=== PATIENT | female | born 1985 | race Caucasian/White ===

== ENCOUNTER 2020-04-20 15:08 | Outpatient (CLI) | payer OTHER, SELFPAY ==
--- NOTE | ~2020-04-20 | XR_ITS ---
EXAMINATION: XR hand RT 2V DATE: 04/20/2020 16:06 INDICATION: Arthralgia. TECHNIQUE: 2 views of right hand were obtained. COMPARISON: None. FINDINGS: Bone alignment is normal. No fracture. Joint spaces are well maintained. IMPRESSION: 1. Normal right hand. Reviewed, dictated and finalized at location A. IMPRESSION: 1. Normal right hand.
--- NOTE | ~2020-04-20 | XR_ITS ---
EXAMINATION: XR hand LT 2V DATE: 04/20/2020 16:07 INDICATION: Arthralgia. TECHNIQUE: 2 views of left hand were obtained. COMPARISON: None. FINDINGS: Bone alignment is normal. No fracture. Joint spaces are well maintained. IMPRESSION: 1. Normal left hand. Reviewed, dictated and finalized at location A. IMPRESSION: 1. Normal left hand.
--- NOTE | ~2020-04-20 | XR_ITS ---
EXAMINATION: XR chest 2V 04/20/2020 16:06 INDICATION: Dyspnea with exertion PROCEDURE: 2 view chest COMPARISON: No prior studies for comparison. FINDINGS: The lungs are clear. The cardiomediastinal silhouette is within normal limits. There are no pleural effusions. There is no pneumothorax suspected. IMPRESSION: 1: NO ACUTE CARDIOPULMONARY DISEASE. Reviewed, dictated and finalized at location B.
--- NOTE | ~2020-04-20 | XR_ITS ---
XR foot RT 2V, XR foot LT 2V 04/20/2020 16:07 Indication: Arthralgias. Procedure: 2 views each foot Comparison: No prior studies for comparison. Findings: No fracture, subluxation or dislocation. No significant joint space narrowing. No erosive c hanges. No focal soft tissue abnormality. There is a small degenerative calcaneal enthesophyte of the left calcaneus at the plantar surface. Impression: 1: No significant bone or joint abnormality. Reviewed, dictated and finalized at location B. Impression: 1: No significant bone or joint abnormality. Impression: 1: No significant bone or joint abnormality.
== END 2020-04-20 15:09 | disposition home or self-care (01) ==
PROVIDERS: Referring Provider Internal Medicine Rheumatology; Visit Provider Physician Assistant
DX: M25.50 Pain in unspecified joint (principal)
CPT/HCPCS: 71046; 73120; 73620

== ENCOUNTER 2020-04-29 14:45 | Outpatient (CLI) | payer OTHER, SELFPAY ==
--- NOTE | 2020-04-29 | ECHO_ITS ---
Patient Info Name: Sarah Cowan Age: 34 years : 1985 Gender: Female Ht: 66 in Wt: 275 lbs BSA: 2.48 m2 HR: 101 bpm BP: 116 / 76 mmHg Heart Rhythm: Sinus Rhythm Technical Quality: Good Exam Date: 04/29/2020 3:36 PM Exam Location: [facility] Patient Status: Outpatient Admit Date: 04/29/2020 Staff Ordering Physician: Lucia, Jose Dowd MD Liner Roll Changer: Saida Qiu RDCS Attending Provider: Lucia, Jose Dowd MD Referring Physician: Ghulam US; Exam Type: CA echo doppler color flow Study Info Indications - LAST Complete two-dimensional, color flow and Doppler transthoracic echocardiogram is performed. Summary 1. Unremarkable 2D/Doppler echocardiogram. Left Ventricle Left ventricular chamber dimension is normal. Left ventricular systolic function is normal, estimated at 60-65%. The left ventricular diastolic function is normal. Right Ventricle Right ventricular chamber dimension is normal. Left Atria Left atrial chamber dimension is normal. Right Atria Right atrial chamber dimension is normal. Aortic Valve The aortic valve is normal. Pulmonic Valve The pulmonic valve is normal. Mitral Valve The mitral valve has normal leaflets. Tricuspid Valve The tricuspid valve leaflets are normal. Pericardium/Pleural The pericardium appears normal. Aorta The aortic root size at the sinus of Valsalva is normal. Left Ventricular Outflow Tract Name Value Normal LVOT 2D LVOT Diameter 2.0 cm LVOT Doppler LVOT Peak Gradient 7 mmHg LVOT Mean Gradient 4 mmHg LVOT VTI 20 cm LVOT VTI/AV VTI Ratio 0.8 LVOT Stroke Volume 62 ml LVOT CO 16.3 l/min LVOT CI 6.6 l/min/m2 Pulmonic Valve Name Value Normal PV Doppler PV Peak Gradient 4 mmHg Mitral Valve Name Value Normal MV Doppler MV Decel [place] 588 cm/s2 MV PHT 40 ms MV Area (PHT) 5.5 cm2 4.0-5.0 MV Diastolic Function MV E Peak Velocity 81 cm/s MV A Peak Velocity 72 cm/s MV E/A 1.1 MV Decel Time 138 ms Tricuspid Valve Name
== END 2020-04-29 14:46 | disposition home or self-care (01) ==
PROVIDERS: Visit Provider Internal Medicine Rheumatology
DX: R06.00 Dyspnea, unspecified (principal)
CPT/HCPCS: 93306

== ENCOUNTER 2020-05-26 07:43 | Outpatient (CLI) | payer OTHER, SELFPAY ==
--- NOTE | 2020-05-29 14:55 | WPDPFTINT ---
PFT Interpretation PFT Interpretation: This PFT met all criteria for ATS standards and reproducibility FEV/FVC pre bronchodilator 71% of predicted FEV1 73% or 2.21 liters FVC 80% or 3.10 liters No bronchodilator challenge was given TLC 105% or 5.77 liters RV 106% RV/TLC 33% DLCO 81% when adjusted for alveolar volume but not adjusted for hemoglobin Flow volume loops showed significant end expiratory coving Impression: Moderate obstruction. Unclear if responsive to brochodilators as bronchodilator challenge not ordered. Clinical correlation is advised.
== END 2020-05-26 07:44 | disposition home or self-care (01) ==
PROVIDERS: Visit Provider Internal Medicine Rheumatology
DX: R06.00 Dyspnea, unspecified (principal); R94.2 Abnormal results of pulmonary function studies
CPT/HCPCS: 94375; 94726; 94729

== ENCOUNTER 2021-03-24 12:57 | Emergency (ER) | payer OTHER, SELFPAY ==
[2021-03-24 13:07] VITALS: BP 146/96; PULSE 88; RESP 18; TEMP 36.8; O2SAT 99
--- NOTE | 2021-03-24 13:36 | ED.WOUNDLAC ---
HPI - Wound/Laceration General Chief Complaint: Wound/Laceration Stated Complaint: Infected tattoo Time Seen by Provider: 03/24/21 13:36 Source: patient and RN notes reviewed Mode of arrival: ambulatory Limitations: no limitations History of Present Illness HPI narrative: 35-year-old female history of rheumatoid arthritis presents with concern for open wounds on her new tattoo. Reports she got a tattoo 2 weeks ago and several days ago noticed several small open wounds with drainage. She reports they are slightly tender and itchy. She reports she has been using Neosporin on the areas. She denies any red streaking, malaise, fever, body aches. Extremity Location: Right: arm Related Data Home Medications Medication Instructions Recorded Confirmed hydroxychloroquine [Plaquenil] 03/24/21 leflunomide mg 03/24/21 venlafaxine mg PO 03/24/21 Allergies Allergy/AdvReac Type Severity Reaction Status Date / Time No Known Allergies Allergy Verified 03/24/21 13:13 Review of Systems Review of Systems: Narrative: CONSTITUTIONAL: Denies malaise, chills, sweats, or fever. CARDIOVASCULAR: Denies chest pain, palpitations, or edema. RESPIRATORY: Denies cough or dyspnea. SKIN: Reports wounds on her new tattoo MUSCULOSKELETAL: Denies myalgia. All systems reviewed & are unremarkable except as noted in HPI and below PMFSH Comments At time of signature, agree with nursing past medical, surgical, social and family history. There is no relevant family history pertinent to the presenting complaint Exam Narrative: Exam Narrative: GENERAL: Well-appearing, well-nourished, and in no acute distress. HEAD: Normocephalic, atraumatic. EYES: PERRLA, conjunctivae clear, and EOMI. ENT: Mucous membranes moist. Oropharynx without edema, erythema or lesions. NECK: Supple. No lymphadenopathy CHEST: Clear to auscultation. No respiratory distress. HEART: Regular rate and rhythm. SKIN: Warm, dry. 7 scattered wounds noted to the left lower arm on a tattoo, in various stages of healing some scab, some open all surrounded by small amount of erythema and induration. No streaking noted, no drainage noted. NEURO: Alert and oriented x3. PSYCH: Normal mood and affect Course Course Emergency Course: Patient is aware of diagnosis, understands and agrees to treatment plan. Anticipatory guidance given. Patient agrees to follow-up as directed and is aware of reasons to seek care at the emergency department. Portions of this record may have been created with voice recognition software Vital Signs Vital signs: Vital Signs Temperature 98.2 F 03/24/21 13:07 Pulse Rate 88 03/24/21 13:07 Respiratory Rate 18 03/24/21 13:07 Blood Pressure 146/96 H 03/24/21 13:07 Pulse Oximetry 99 03/24/21 13:07 Temperature 98.2 F 03/24/21 13:07 Pulse Rate 88 03/24/21 13:07 Respiratory Rate 18 03/24/21 13:07 Blood Pressure 146/96 H 03/24/21 13:07 Pulse Oximetry 99 03/24/21 13:07 Reviewed. MDM - Wound/Laceration MDM Narrative Medical decision making narrative: Exam findings show no acute concerns or changes; patient is non-toxic appearing and is in no distress. Patient is appropriate for outpatient treatment and follow-up. Differential Diagnosis Differential diagnosis: Likely abscess and other (Cellulitis, wound infection) Critical Care Time Critical Care Time Critical Care Time: No Discharge Plan Discharge Clinical Impression: Skin infection Patient Disposition: Home, Self-Care Condition: Stable Instructions: Antibiotic Form, Cellulitis (ED) Additional Instructions: Please follow up with your Primary Care Doctor If symptoms worsen or don't improve. Keep wound clean and dry, wash twice daily with soap and water. Alternate Tylenol and ibuprofen as needed for pain. Please take Antibiotics as directed. If you experience any worsening redness, swelling, streaking (red lines), fever or chills please go to the ER. Your blood p
== END 2021-03-24 13:55 | disposition home or self-care (01) ==
PROVIDERS: Emergency Provider Nurse Practitioner
DX: L08.9 Local infection of the skin and subcutaneous tissue, unspecified (principal); M06.9 Rheumatoid arthritis, unspecified; F90.9 Attention-deficit hyperactivity disorder, unspecified type
CPT/HCPCS: 99213; G0463

== ENCOUNTER 2021-03-31 01:39 | Emergency (ER) | payer OTHER, SELFPAY ==
[2021-03-31 01:55] VITALS: BP 139/90; PULSE 110; RESP 20; TEMP 35.9; O2SAT 98
--- NOTE | 2021-03-31 02:27 | ED.SKABFB ---
HPI - Skin/Abscess/Foreign Bdy General Chief complaint: Skin/Abscess/Foreign Body Stated complaint: Redness/ rash to leg Time Seen by Provider: 03/31/21 02:24 History of Present Illness HPI narrative: Painful swollen area to left inner thigh. Started as an ingrown hair quite sometime ago. Repeatedly drains and then comes back. No fever, or other systemic symptoms. Related Data Home Medications Medication Instructions Recorded Confirmed dextroamphetamine-amphetamine 5 mg PO BID 03/24/21 03/24/21 [Adderall] hydroxychloroquine [Plaquenil] 03/24/21 leflunomide 20 mg PO DAILY 03/24/21 naltrexone IM MONTHLY 03/24/21 trazodone 03/24/21 venlafaxine mg PO 03/24/21 venlafaxine mg PO 04/04/21 Allergies Allergy/AdvReac Type Severity Reaction Status Date / Time amoxicillin Allergy Intermediate Hives Verified 03/31/21 02:02 Review of Systems Constitutional: Constitutional: Reports no additional constitutional complaints Cardiovascular: Cardiovascular: Denies chest pain Respiratory: Respiratory: Denies dyspnea Gastrointestinal: Gastrointestinal: Denies nausea Neurologic: Denies dizziness and Denies weakness [facility] Social History Social History Substance use: current Substance use type: marijuana Exam Const: General: healthy appearing, no acute distress and alert Orientation/consciousness: patient oriented x3 HENMT: Head: normal to inspection Resp: Effort & Inspection: normal respiratory effort Cardio: Jugular venous distension: no JVD GI: GI Palp: Yes Soft to palpation and No Tenderness to palpation present (GI) Skin: Other: Raised mildly indurated area to left inner thigh Neuro: General: patient oriented x3 and moves all extremities Speech: normal speech Extrem: General: normal to inspection Psych: Appearance: well kempt Affect: normal affect Course Vital Signs Vital signs: Vital Signs Temperature 35.9 C L 03/31/21 01:55 Pulse Rate 110 H 03/31/21 01:55 Respiratory Rate 20 03/31/21 01:55 Blood Pressure 139/90 03/31/21 01:55 Pulse Oximetry 98 03/31/21 01:55 Temperature 36.6 C 03/31/21 04:55 Pulse Rate 97 03/31/21 04:39 Respiratory Rate 18 03/31/21 04:39 Blood Pressure 136/90 03/31/21 04:39 Pulse Oximetry 97 03/31/21 04:39 Procedures Abscess I/D lower extremity: Local Anesthetic: lidocaine 1% and with epi Amount of anesthesia used (mL): 3 Technique: incised with #11 blade Amount of fluid expressed (mL): 0.5 Irrigation: Yes Packing used?: iodoform I&D Results: Pus MDM - Skin/Abscess/Foreign Bdy MDM Narrative Medical decision making narrative: Minimal pus obtained. likely already drained on its own. Small amount of pack left in to help fully drain and hopefully minimize the chance that it will return Differential Diagnosis Differential diagnosis: Likely abscess of skin or subcutaneous tissue Medical Records Attestation: I reviewed the patient's medical records. Discharge Plan Discharge Clinical Impression: Abscess of left thigh Patient Disposition: Home, Self-Care Condition: Stable Instructions: Abscess (ED) Prescriptions: No Action venlafaxine 75 mg capsule,extended release 24hr PO RF: 0 leflunomide 20 mg tablet 20 mg PO DAILY RF: 0 hydroxychloroquine [Plaquenil] 200 mg tablet RF: 0 dextroamphetamine-amphetamine [Adderall] 5 mg Tablet 5 mg PO BID RF: 0 naltrexone IM MONTHLY RF: 0 trazodone RF: 0 venlafaxine 75 mg capsule,extended release 24hr PO RF: 0 Follow-up/Referrals: [facility] [Primary Care Provider] -
[2021-03-31] MEDS: LIDO 1%/EPINEPHRINE 1:100,000 20 ML VIAL INFILTRATE (02:49)
[2021-03-31 04:39] VITALS: BP 136/90; PULSE 97; RESP 18; O2SAT 97
[2021-03-31] MEDS: CLINDAMYCIN HCL 150 MG CAP 300 MG PO (04:39)
[2021-03-31 04:55] VITALS: TEMP 36.6
== END 2021-03-31 04:56 | disposition home or self-care (01) ==
PROVIDERS: Emergency Provider Emergency Medicine
DX: L02.416 Cutaneous abscess of left lower limb (principal)
CPT/HCPCS: 10061; 99283; A9270

== ENCOUNTER 2021-04-04 15:56 | Emergency (ER) | payer OTHER, SELFPAY ==
--- NOTE | ~2021-04-04 | XR_ITS ---
EXAMINATION: XR chest 2V DATE: 04/04/2021 17:00 INDICATION: Palpitations. TECHNIQUE: Frontal and lateral views of the chest were obtained. COMPARISON: Chest 2 views 04/20/2020 FINDINGS: The chest demonstrates clear lungs without pneumonia, pleural effusion, or pneumothorax. Th e heart size is normal. Surgical clips in the right upper quadrant are likely from cholecystectomy. IMPRESSION: 1. No acute cardiopulmonary disease. Reviewed, dictated and finalized at location A.
[2021-04-04 16:01] VITALS: BP 168/107; PULSE 123; RESP 20; TEMP 36.4; O2SAT 98
--- NOTE | 2021-04-04 16:08 | ECG_ITS ---
Measurements Intervals [employer] Rate: 115 P: 43 TN: 128 QRS: 49 QRSD: 81 T: 33 QT: 293 QTc: 407 Interpretive Statements SINUS TACHYCARDIA BASELINE WANDER- V3-V4 ABNORMAL ECG Electronically Signed On 04-04-2021 16:20:10 CDT by Marcos De Guzman D.O.
[2021-04-04 16:51] LABS: Basophils Absolute Auto 0.1 K/mm3 (0.0-0.1); Basophils Percent Auto 1.3 % (0.2-1.2); Eosinophils Absolute Auto 0.1 K/mm3 (0-0.3); Hematocrit 39.7 % (37.0-47.0); Hemoglobin 13.4 g/dL (12.0-15.0); Immature Granulocyte Absolute 0.01 K/mm3 (0.00-0.031); Immature Granulocyte Percent A 0.2 % (0-0.5); Lymphocytes Absolute Auto 1.55 K/mm3 (0.9-3.2); Lymphocytes Percent Auto 28.1 % (18.3-44.2); Mean Corpuscular HGB Conc 33.8 g/dl (32-36); Mean Corpuscular Hemoglobin 31.5 pg (26-34); Mean Corpuscular Volume 93.2 fl (80-100); Mean Platelet Volume 8.8 fl (7.4-10.4); Monocytes Absolute Auto 0.7 K/mm3 (0.1-0.6); Monocytes Percent Auto 12.9 % (2.6-8.5); Neutrophils Absolute Auto 3.1 K/mm3 (1.3-6.7); Neutrophils Percent Auto 55.5 % (45.5-73.1); Platelet Count Result 258 k/mm3 (150-375); Red Blood Count 4.26 M/mm3 (4.2-5.4); Red Cell Distribution Width 14.2 % (11.5-14.5); White Blood Count 5.5 K/mm3 (4.5-10.0)
--- NOTE | 2021-04-04 16:57 | ED.GENADULT ---
HPI - General Adult General Chief complaint: Arrhythmia/Palpitations Stated complaint: heart palpitations Time Seen by Provider: 04/04/21 16:12 Source: patient History of Present Illness HPI narrative: Patient is a 35 y/o female complaining of moderate heart palpitation for 2 weeks. She describes her palpitation as fast and irregular. She states that relaxing helps sometime. She had some left sided pressure like chest pain yesterday. However, she has no chest pain at this time. Related Data Home Medications Medication Instructions Recorded Confirmed dextroamphetamine-amphetamine 5 mg PO BID 03/24/21 03/24/21 [Adderall] hydroxychloroquine [Plaquenil] 03/24/21 leflunomide 20 mg PO DAILY 03/24/21 naltrexone IM MONTHLY 03/24/21 trazodone 03/24/21 venlafaxine mg PO 03/24/21 venlafaxine mg PO 04/04/21 Allergies Allergy/AdvReac Type Severity Reaction Status Date / Time amoxicillin Allergy Intermediate Hives Verified 03/31/21 02:02 Review of Systems Review of Systems: All systems reviewed & are unremarkable except as noted in HPI and below Constitutional: Constitutional: Denies chills, Denies fever(s), Denies headache(s) and Denies weakness Eyes: Eyes: Denies blurry vision ENT: Denies headache(s) and Denies neck pain Cardiovascular: Cardiovascular: Reports chest pain, Reports rapid heart rate and Denies dyspnea Respiratory: Respiratory: Denies cough and Denies dyspnea Gastrointestinal: Gastrointestinal: Denies abdominal pain, Denies diarrhea, Denies nausea and Denies vomiting Genitourinary: Genitourinary: Denies hematuria and Denies dysuria Musculoskeletal: Musculoskeletal: Denies back pain and Denies neck pain Neurologic: Denies headache(s) and Denies weakness [facility] Social History Social History Substance use: current Substance use type: marijuana Exam Const: General: no acute distress and well developed Orientation/consciousness: oriented to person, oriented to place, oriented to time and patient oriented x3 HENMT: Head: normocephalic Ears: external ears normal General nose exam: Normal external nose present Eyes: General: appearance normal, both eyes and all related structures Conjunctivae: conjunctivae normal Neck: Neck: normal visual inspection and full ROM Chest: Chest palpation & inspection: normal inspection of the chest and no tenderness Resp: Effort & Inspection: normal respiratory effort Auscultation: clear to auscultation bilaterally Cardio: Rate: tachycardic Rhythm: regular rhythm GI: GI Palp: No abdominal tenderness and Yes Soft to palpation Skin: General skin exam: normal color and turgor normal Neuro: General: oriented to person, oriented to place, oriented to time and patient oriented x3 Cognition (Neuro): normal cognition Extrem: General: normal to inspection, full ROM and no pedal edema Psych: Appearance: grossly normal Mental Status: mental status grossly normal Affect: normal affect Course Reevaluation(s) Reevaluation #1: Rechecked. Patient states that she feels well. She states that she has appointment with her doctor tomorrow and she will follow as scheduled. Date: 04/04/21 Time: 20:17 Vital Signs Vital signs: Vital Signs Temperature 36.4 C 04/04/21 16:01 Pulse Rate 123 H 04/04/21 16:01 Respiratory Rate 20 04/04/21 16:01 Blood Pressure 168/107 H 04/04/21 16:01 Pulse Oximetry 98 04/04/21 16:01 Temperature 36.4 C 04/04/21 16:01 Pulse Rate 113 H 04/04/21 20:01 Respiratory Rate 20 04/04/21 20:01 Blood Pressure 150/104 H 04/04/21 20:01 Pulse Oximetry 94 04/04/21 20:01 Medical Decision Making Vital Signs Vital Signs: Vital Signs Temperature 36.4 C 04/04/21 16:01 Pulse Rate 123 H 04/04/21 16:01 Respiratory Rate 20 04/04/21 16:01 Blood Pressure 168/107 H 04/04/21 16:01 Pulse Oximetry 98 04/04/21 16:01 Temperature 36.4 C 04/04/21 16:01
[2021-04-04 17:00] LABS: Alanine Aminotransferase 23 U/L (4-35); Albumin Level 4.3 g/dL (3.5-5.1); Alkaline Phosphatase 60 U/L (38-126); Anion Gap 10 mmol/L (8-16); Aspartate Amino Transferase 36 U/L (14-36); Bilirubin,Total < 0.1 mg/dL (0.2-1.3); Blood Urea Nitrogen 9 mg/dL (7-17); Calcium 9.7 mg/dL (8.4-10.2); Carbon Dioxide 21 mmol/L (22-30); Chloride 108 mmol/L (98-107); Estimated CRCL calculation 120 ml/min; Estimated Glomerular Filt Rate > 60; Glucose 103 mg/dL (65-105); Potassium 3.2 mmol/L (3.4-5.0); Sodium 139 mmol/L (137-145)
[2021-04-04] MEDS: POTASSIUM CHLORIDE 20 MEQ TABLET PO (17:08)
[2021-04-04 17:12] LABS: Troponin I < 0.012 ng/mL (0.000-0.034)
[2021-04-04 17:39] VITALS: BP 150/93; PULSE 114; RESP 20; O2SAT 99
[2021-04-04 19:18] VITALS: BP 148/99; PULSE 105; RESP 21; O2SAT 96
--- NOTE | 2021-04-04 19:19 | PC.NURSE ---
Report received from NIKKO Gupta. Pt resting comfortably on stretcher. ST via monitor. Denies needs at present.
[2021-04-04 19:30] VITALS: PULSE 109; RESP 23; O2SAT 97
[2021-04-04 19:35] LABS: Add Urine Microscopic? NO; Appearance Urine Clear (Clear); Bilirubin Urine Negative (Negative); Blood Urine Negative (Negative); Color Urine Straw (Yellow); Glucose Urine UA Negative (Negative); Ketones Urine Negative (Negative); Leukocyte Esterase Ur Negative LEU/UL (Negative); Nitrate Urine Negative (Negative); Protein Urine Negative (Negative); Urobilinogen Urine Negative mg/dL (<2.0)
[2021-04-04 19:37] LABS: Specific Grav Ur 1.004 (1.001-1.035)
[2021-04-04 19:54] LABS: Troponin I < 0.012 ng/mL (0.000-0.034)
[2021-04-04 20:00] VITALS: PULSE 104; RESP 16; O2SAT 98
[2021-04-04 20:01] VITALS: BP 150/104; PULSE 113; RESP 20; O2SAT 94
== END 2021-04-04 20:40 | disposition home or self-care (01) ==
PROVIDERS: Emergency Provider Emergency Medicine
DX: R00.2 Palpitations (principal); E87.6 Hypokalemia; I10 Essential (primary) hypertension; R00.0 Tachycardia, unspecified
CPT/HCPCS: 36415; 71046; 80053; 81003; 81025; 84443; 84484; 85025; 93005; 99284; A9270

== ENCOUNTER 2021-07-16 13:46 | Emergency (ER) | payer OTHER, SELFPAY ==
--- NOTE | ~2021-07-16 | XR_ITS ---
XR foot LT min 3V DATE: 07/16/2021 14:05 INDICATION: Injury, left second toe pain TECHNIQUE: 4 views COMPARISON: None FINDINGS: There is mild osteoarthritis at the first metatarsophalangeal joint. There is mild plantar calcaneal enthesopathy. No fracture or dislocation, periosteal reaction or bone destruction. IMPRESSION: No fracture or dislocation Mild osteoarthritic change at first metatarsophalangeal joint Mild plantar calcaneal enthesopathy Reviewed, dictated and finalized at location A.
[2021-07-16 13:54] VITALS: BP 112/78; PULSE 81; RESP 16; TEMP 36.3; O2SAT 99
--- NOTE | 2021-07-16 14:49 | ED.GENADULT ---
HPI - General Adult General Chief complaint: Extremity Injury, Lower Stated complaint: left foot Source: patient Mode of arrival: ambulatory Limitations: no limitations History of Present Illness HPI narrative: Patient is a 35-year-old female who presents to the [facility] via POV for evaluation of a left second toe injury that occurred yesterday. Causing her to strike her left second toe into her screen door. Injury resulted in bruising and swelling of the toe. She also reports an abrasion on left knee. Ice improves toe pain. Walking and bending toe increases pain. Denies taking OTC meds for symptoms. Related Data Home Medications Medication Instructions Recorded Confirmed dextroamphetamine-amphetamine 5 mg PO BID 03/24/21 03/24/21 [Adderall] hydroxychloroquine [Plaquenil] 03/24/21 leflunomide 20 mg PO DAILY 03/24/21 naltrexone IM MONTHLY 03/24/21 trazodone 03/24/21 venlafaxine mg PO 03/24/21 carvedilol 07/16/21 propranolol PO 07/16/21 Allergies Allergy/AdvReac Type Severity Reaction Status Date / Time amoxicillin Allergy Intermediate Hives Verified 03/31/21 02:02 Review of Systems Review of Systems: Pertinent negatives: fever, chills, sweats, change in appetite, poor p.o. intake, malaise, calf tenderness, rash, warmth, numbness, tingling, loss of sensation, deformity, decreased range of motion, weakness, difficulty with ambulation/coordination, nausea, vomiting, lymphadenopathy, shortness of breath, chest pain, heart palpitations, and heart murmur. PMFSH Social History Social History Substance use: current Substance use type: marijuana Comments I have reviewed and agree with the patient's past medical, surgical, social, and family hx as documented by the RN. There is no relevant family history pertinent to the presenting complaint. Exam Narrative: GENERAL: Well-appearing, well-nourished, and in no acute distress. HEAD: Normocephalic, atraumatic. NECK: Supple. No Lymphadenopathy or nuchal rigidity appreciated. CHEST: Bilateral lung silva are clear to auscultation. No respiratory distress. No evidence of cough or pleuritic cp upon examination. HEART: Regular rate and rhythm. No murmur, gallop, or rub heard. EXTREMITIES: Left second toe with generalized moderate swelling and contusion. Small abrasion noted to left knee. No evidence of decreased ROM, cyanosis, laceration, deformity, rash, or puncture. No evidence of pain with active/passive ROM. No evidence of dislocation, ligament laxity, effusion, or pain at rest. Pulses palpable at 2+, strength 5/5, and cap refill < 3 seconds in affected extremity. DTRs normal. Ambulates with left-sided limp. Slowed gait. SKIN: Warm, dry, no rash. NEURO: No focal deficits. Alert and oriented x3. Course Vital Signs Vital signs: Vital Signs Temperature 97.3 F L 07/16/21 13:54 Pulse Rate 81 07/16/21 13:54 Respiratory Rate 16 07/16/21 13:54 Blood Pressure 112/78 07/16/21 13:54 Pulse Oximetry 99 07/16/21 13:54 Temperature 97.3 F L 07/16/21 13:54 Pulse Rate 81 07/16/21 13:54 Respiratory Rate 16 07/16/21 13:54 Blood Pressure 112/78 07/16/21 13:54 Pulse Oximetry 99 07/16/21 13:54 Procedures Orthopedic Splinting/Casting Injury #1: Splinting/Casting Date: 07/16/21 Splinting/Casting Time: 14:59 Side: left Upper Extremity Injury Location: finger Upper Extremity Immobilizer: flaca tape Lower Extremity Injury Location: toe (Second toe) Pre-Procedure Neuro Vascular Exam: normal Post-Procedure Neuro Vascular Exam: normal Medical Decision Making Differential Diagnosis Differential Diagnosis: Sprain, strain, cellulitis, open fracture, closed fracture, gout Medical Records Medical records reviewed: Yes I reviewed the external patient's medical records. Vital Signs Vital Signs: Vital Signs Temperature
== END 2021-07-16 15:10 | disposition home or self-care (01) ==
PROVIDERS: Emergency Provider Nurse Practitioner Family
DX: S90.122A Contusion of left lesser toe(s) without damage to nail, initial encounter (principal); W21.89XA Striking against or struck by other sports equipment, initial encounter; I10 Essential (primary) hypertension; M06.9 Rheumatoid arthritis, unspecified
CPT/HCPCS: 73630; 99213; G0463

== ENCOUNTER 2021-10-09 15:05 | Emergency (ER) | payer OTHER, SELFPAY ==
--- NOTE | 2021-10-09 15:11 | ED.SKABFB ---
HPI - Skin/Abscess/Foreign Bdy General Chief complaint: Skin/Abscess/Foreign Body Stated complaint: sore on back, reddness, pain. Time Seen by Provider: 10/09/21 15:11 Source: patient and RN notes reviewed History of Present Illness HPI narrative: Patient is a 35-year-old female who presents the urgent care with complaints of a draining possible abscess to the left lower back. Patient states that she noticed it on New Year's Day and it seems to be healing well however [facility] . Patient denies of any injury to the area. Denies of any fever, chills, nausea, vomiting. Patient has not done anything [id number] for her symptoms. No other acute complaints. No acute distress noted. Patient aware of the plan of care. Some parts of this dictation were generated by voice recognition software and may contain typographical and/or grammatical inaccuracies. Related Data Home Medications Medication Instructions Recorded Confirmed hydroxychloroquine [Plaquenil] 03/24/21 leflunomide 20 mg PO DAILY 03/24/21 naltrexone IM MONTHLY 03/24/21 trazodone 03/24/21 venlafaxine mg PO 03/24/21 carvedilol 07/16/21 Strattera 10/09/21 Allergies Allergy/AdvReac Type Severity Reaction Status Date / Time amoxicillin Allergy Intermediate Hives Verified 03/31/21 02:02 Review of Systems Review of Systems: CONSTITUTIONAL: Denies fever, chills, or sweats. EYES: Denies visual changes, redness, or discharge. ENT: Denies rhinorrhea, congestion, sore throat, or otalgia. CARDIOVASCULAR: Denies chest pain, palpitations, or edema. RESPIRATORY: Denies cough or dyspnea. GASTROINTESTINAL: Denies abdominal pain, nausea, vomiting, or diarrhea. GENITOURINARY: Denies dysuria or hematuria. SKIN: Reports of a painful possible draining abscess to the left lower back MUSCULOSKELETAL: Denies back pain, joint pain, or myalgia. NEUROLOGIC: Denies headache, numbness, or weakness. All other systems reviewed are negative, except as documented in HPI. [facility] Social History Social History Substance use: current Substance use type: marijuana Comments At the time of my signature, I reviewed and agree with the nursing past medical, surgical, social, and family history. There is no relevant family history pertinent to the patient complaint. Exam Narrative: GENERAL: This is a well-nourished, well-developed patient, in no apparent distress. HEAD: normocephalic, atraumatic. EYES: PERRL. Sclera clear/white. Vision is grossly intact. EARS: External ears normal NOSE: External nose normal with no obvious nasal discharge, nares without redness, no rhinorrhea. THROAT: Mucous membranes moist NECK: Neck supple CARDIOVASCULAR: Regular rate and rhythm without murmurs, gallops, or rubs. RESPIRATORY: Clear to auscultation. Breath sounds equal bilaterally. No wheezes, rales, or rhonchi. SKIN: 1.5 cm indented open wound with yellow serosanguineous fluid to the left lower back with surrounding 3 cm erythema, no firmness NEURO: awake, alert, and oriented to person, place and time. There were no obvious focal neurologic abnormalities. EXTREMITIES: No clubbing, cyanosis, or edema. Course Course Level of Care: Express Care Visit Vital Signs Vital signs: Vital Signs Temperature 97.3 F L 10/09/21 15:17 Pulse Rate 84 10/09/21 15:17 Respiratory Rate 16 10/09/21 15:17 Blood Pressure 121/88 10/09/21 15:17 Pulse Oximetry 100 10/09/21 15:17 Temperature 97.3 F L 10/09/21 15:17 Pulse Rate 84 10/09/21 15:17 Respiratory Rate 16 10/09/21 15:17 Blood Pressure 121/88 10/09/21 15:17 Pulse Oximetry 100 10/09/21 15:17 Reviewed MDM - Skin/Abscess/Foreign Bdy MDM Narrative Medical decision making narrative: Advised the patient to use the prescription cream to the affected area twice a day. May keep it covered if draining. Clean with plain Dial soap and water. Comple
[2021-10-09 15:17] VITALS: BP 121/88; PULSE 84; RESP 16; TEMP 36.3; O2SAT 100
== END 2021-10-09 15:31 | disposition home or self-care (01) ==
PROVIDERS: Emergency Provider Nurse Practitioner Family; PCP Internal Medicine
DX: S31.000A Unspecified open wound of lower back and pelvis without penetration into retroperitoneum, initial encounter (principal); X58.XXXA Exposure to other specified factors, initial encounter; I10 Essential (primary) hypertension; M06.9 Rheumatoid arthritis, unspecified
CPT/HCPCS: 99213; G0463

== ENCOUNTER 2022-02-23 10:53 | Emergency (ER) | payer OTHER, SELFPAY ==
[2022-02-23 11:00] VITALS: BP 121/77; PULSE 90; RESP 16; TEMP 36.2; O2SAT 100
--- NOTE | 2022-02-23 11:20 | ED.EAR ---
HPI - Ear Problem General Chief complaint: Ear Stated complaint: L EARACHE Time Seen by Provider: 02/23/22 11:14 Source: patient Mode of arrival: ambulatory Limitations: no limitations History of Present Illness HPI Narrative: 36-year-old female presented for complaint of left ear pain, onset yesterday. She endorses chronic tinnitus which she states is worse since yesterday. Endorses pressure sensation in the ear is constant, no drainage, no dizziness, fevers or chills. Endorses increased seasonal allergy symptoms. She has not taken anything for symptoms. Denies history of ear infections. Allergy to amoxicillin, hives. MD Complaint: ear pain Related Data Home Medications Medication Instructions Recorded Confirmed hydroxychloroquine [Plaquenil] 200 mg PO DAILY 03/24/21 02/23/22 leflunomide 20 mg PO DAILY 03/24/21 02/23/22 trazodone 50 mg PO HS 03/24/21 02/23/22 venlafaxine 75 mg PO DAILY 03/24/21 02/23/22 carvedilol 25 mg PO DAILY 07/16/21 02/23/22 atomoxetine 60 mg PO DAILY 02/23/22 02/23/22 gabapentin 300 mg PO DAILY 02/23/22 02/23/22 liraglutide [Victoza 3-Maximus] 0.6 mg SUBCUT WEEKLY 02/23/22 02/23/22 sertraline 25 mg PO DAILY 02/23/22 02/23/22 Allergies Allergy/AdvReac Type Severity Reaction Status Date / Time amoxicillin Allergy Intermediate Hives Verified 02/23/22 11:19 Review of Systems Review of Systems: CONSTITUTIONAL: Denies malaise, chills, or fever. EYES: Denies visual changes, redness, or discharge. ENT: Denies rhinorrhea, congestion, sinus pain, and sore throat. Reports ear pain CARDIOVASCULAR: Denies chest pain, palpitations, or edema. RESPIRATORY: Denies cough or dyspnea. GASTROINTESTINAL: Denies abdominal pain, nausea, vomiting, diarrhea SKIN: Denies rash or itching. MUSCULOSKELETAL: Denies myalgia. NEUROLOGIC: Denies headache. All systems reviewed & are unremarkable except as noted in HPI and below PMFSH Social History Social History Substance use: current Substance use type: marijuana Comments At time of signature, agree with nursing past medical, surgical, social and family history. There is no relevant family history pertinent to the presenting complaint Exam Narrative: GENERAL: Well-appearing HEAD: Normocephalic EYES: conjunctivae clear ENT: Nares clear. Mucous membranes moist. Left TM erythematous with purulent fluid, Right TM pearly ng with normal light reflex; no tragal tenderness. Oropharynx not erythematous. no drooling, no hoarseness, no trismus, uvula midline. NECK: Supple. No lymphadenopathy CHEST: Clear to auscultation, breath sounds equal. No wheezing, rhonchi, rales, or stridor. No respiratory distress, speaks in full sentences. HEART: Regular rate and rhythm. No murmur heard. SKIN: Warm, dry, no rash. NEURO: Alert and oriented x3. PSYCH: Normal mood and affect Course Course Emergency Course: Patient is aware of diagnosis, understands and agrees to treatment plan. Anticipatory guidance given. Patient agrees to follow-up as directed and is aware of reasons to seek care at the emergency department. Portions of this record may have been created with voice recognition software Level of Care: Express Care Visit Vital Signs Vital signs: Vital Signs Temperature 97.1 F L 02/23/22 11:00 Pulse Rate 90 02/23/22 11:00 Respiratory Rate 16 02/23/22 11:00 Blood Pressure 121/77 02/23/22 11:00 Pulse Oximetry 100 02/23/22 11:00 Temperature 97.1 F L 02/23/22 11:00 Pulse Rate 90 02/23/22 11:00 Respiratory Rate 16 02/23/22 11:00 Blood Pressure 121/77 02/23/22 11:00 Pulse Oximetry 100 02/23/22 11:00 Reviewed Medical Decision Making MDM Narrative Medical decision making narrative: patient is non-toxic appearing and is in no distress. Patient is appropriate for outpatient treatment and follow-up. Differential Diagnosis Differential Diagnosis: allergic rhinitis, upper respiratory tract infect
== END 2022-02-23 11:25 | disposition home or self-care (01) ==
PROVIDERS: Emergency Provider Nurse Practitioner Family; PCP Internal Medicine
DX: H66.002 Acute suppurative otitis media without spontaneous rupture of ear drum, left ear (principal); F12.90 Cannabis use, unspecified, uncomplicated; I10 Essential (primary) hypertension; M06.9 Rheumatoid arthritis, unspecified; F32.A Depression, unspecified
CPT/HCPCS: 99213; G0463

== ENCOUNTER 2022-05-11 23:46 | Emergency (ER) | payer OTHER, SELFPAY ==
--- NOTE | ~2022-05-11 | XR_ITS ---
XR chest 1V portable DATE: 05/12/2022 02:15 INDICATION: Syncope TECHNIQUE: Portable upright AP chest on 05/12/2022 at 0212 hours COMPARISON: 04/04/2021 PA and lateral chest FINDINGS: Normal heart size. No hilar or mediastinal enlargement. No pulmonary infiltrate or consolidation, pleural effusion or pulmonary vascular congestion or pneumo thorax is detected. IMPRESSION: No active cardiopulmonary disease Reviewed, dictated and finalized at location A.
--- NOTE | ~2022-05-11 | XR_ITS ---
EXAM: XR knee RT min 4V DATE: 05/12/2022 00:44 HISTORY: pain after fall . COMPARISON: None available. FINDINGS: Normal mineralization. No fracture or dislocation. No lytic or blastic lesion. Joint space s are maintained. No erosion or periosteal change. Soft tissues within normal limits. IMPRESSION: No acute osseous finding in the right knee. Reviewed, dictated and finalized at location K.
[2022-05-12 00:07] VITALS: BP 129/85; PULSE 80; RESP 18; TEMP 36.3; O2SAT 100
--- NOTE | 2022-05-12 00:23 | ECG_ITS ---
Measurements Intervals [place] Rate: 86 P: 39 MD: 166 QRS: 47 QRSD: 86 T: 42 QT: 369 QTc: 443 Interpretive Statements SINUS RHYTHM COMPARED TO ECG 04/04/2021 16:07:20 SINUS RHYTHM NOW PRESENT Electronically Signed On 05-12-2022 7:22:32 CDT by Chase Griffin M.D.
[2022-05-12 01:05] LABS: Basophils Absolute Auto 0.1 K/mm3 (0.0-0.1); Basophils Percent Auto 0.6 % (0.2-1.2); Eosinophils Absolute Auto 0.1 K/mm3 (0-0.3); Eosinophils Percent Auto 1.1 % (0-4.4); Hematocrit 40.2 % (37.0-47.0); Hemoglobin 13.4 g/dL (12.0-15.0); Immature Granulocyte Absolute 0.02 K/mm3 (0.00-0.031); Immature Granulocyte Percent A 0.2 % (0-0.5); Lymphocytes Absolute Auto 1.81 K/mm3 (0.9-3.2); Lymphocytes Percent Auto 21.8 % (18.3-44.2); Mean Corpuscular HGB Conc 33.3 g/dl (32-36); Mean Corpuscular Hemoglobin 32.6 pg (26-34); Mean Corpuscular Volume 97.8 fl (80-100); Mean Platelet Volume 8.4 fl (7.4-10.4); Monocytes Absolute Auto 0.7 K/mm3 (0.1-0.6); Monocytes Percent Auto 8.9 % (2.6-8.5); Neutrophils Absolute Auto 5.6 K/mm3 (1.3-6.7); Neutrophils Percent Auto 67.4 % (45.5-73.1); Platelet Count Result 267 k/mm3 (150-375); Red Blood Count 4.11 M/mm3 (4.2-5.4); Red Cell Distribution Width 13.2 % (11.5-14.5); White Blood Count 8.3 K/mm3 (4.5-10.0)
[2022-05-12 01:15] LABS: Alanine Aminotransferase 18 U/L (6-35); Albumin Level 4.8 g/dL (3.5-5.1); Alkaline Phosphatase 49 U/L (38-126); Anion Gap 11 mmol/L (8-16); Aspartate Amino Transferase 27 U/L (14-36); Bilirubin,Total 0.3 mg/dL (0.2-1.3); Blood Urea Nitrogen 8 mg/dL (7-17); Calcium 9.9 mg/dL (8.4-10.2); Carbon Dioxide 25 mmol/L (22-30); Chloride 98 mmol/L (98-107); Estimated CRCL calculation 97 ml/min; Estimated Glomerular Filt Rate > 60; Glucose 95 mg/dL (65-110); Potassium 3.6 mmol/L (3.4-5.0); Sodium 134 mmol/L (137-145)
--- NOTE | 2022-05-12 01:40 | ED.GENADULT ---
HPI - General Adult General Chief complaint: Syncope Stated complaint: syncope, fall, right knee pain Time Seen by Provider: 05/12/22 01:18 History of Present Illness HPI narrative: This is a 36-year-old female presenting ED after episode of syncope. Patient says that throughout the day she was walking outside. It is more than 90? outside. After that she met up with some of her girlfriends and had several glasses of wine. Patient was then standing around her friends when she started to have prodromal symptoms and then an episode of syncope. She when she regained consciousness she had fallen forward onto 1 knee. She denies head trauma. Patient is having significant pain over her kneecap and has not been ambulatory since the incident. The patient denies any chest pain, difficulty breathing or palpitations before the syncopal event. Patient has history of syncopal events is teenager. Related Data Home Medications Medication Instructions Recorded Confirmed hydroxychloroquine 200 mg tablet 200 mg PO DAILY 03/24/21 02/23/22 (Plaquenil) leflunomide 20 mg tablet 20 mg PO DAILY 03/24/21 02/23/22 trazodone 50 mg PO HS 03/24/21 02/23/22 venlafaxine 75 mg capsule,extended 75 mg PO DAILY 03/24/21 02/23/22 release 24 hr carvedilol 25 mg tablet 25 mg PO DAILY 07/16/21 02/23/22 atomoxetine 60 mg capsule 60 mg PO DAILY 02/23/22 02/23/22 gabapentin 300 mg capsule 300 mg PO DAILY 02/23/22 02/23/22 liraglutide 0.6 mg/0.1 mL (18 mg/3 0.6 mg subcut WEEKLY 02/23/22 02/23/22 mL) subcutaneous pen injector (Victoza 3-Maximus) sertraline 25 mg tablet 25 mg PO DAILY 02/23/22 02/23/22 Allergies Allergy/AdvReac Type Severity Reaction Status Date / Time amoxicillin Allergy Intermediate Hives Verified 05/12/22 00:21 Review of Systems Review of Systems: CONSTITUTIONAL: Denies night sweats. EYES: No eye pain ENT: Denies rhinorrhea CARDIOVASCULAR: Denies palpitations RESPIRATORY: Denies hemoptysis GASTROINTESTINAL: Denies hematemesis GENITOURINARY: Denies hematuria. SKIN: Denies rash MUSCULOSKELETAL: Denies myalgia. NEUROLOGIC: Denies weakness. PSYCHIATRIC: Denies delusions PMFSH Past Medical History Medical History (Updated 05/12/22 @ 02:28 by Sachin Atkins MD) HTN (hypertension) Surgical History Surgical History (Updated 05/12/22 @ 01:42 by Sachin Atkins MD) History of ankle surgery History of cholecystectomy Social History Social History (Updated 05/12/22 @ 01:43 by Sachin Atkins MD) Social History: Patient uses alcohol occasionally, smokes pack cigarettes every 2 days. uses MJ occasionally. Substance use: current Substance use type: marijuana Exam Narrative: APPEARANCE: No apparent distress. Head atraumatic. EYES: PERRLA/EOMI, NOSE: Normal no drainage NECK: Supple, Trachea midline RESPIRATORY: CTAB, No increased work of breathing. CARDIOVASCULAR: S1S2 appreciated ABDOMINAL: Soft, nontender, nondistended, MUSCULOSKELETAl: patient has a small abrasion over her right knee. She has pain with passive range of motion in the knee cap. No noticeable effusion. NEURO: Alert. Moving 4/4 extremities SKIN:: Warm, dry. Normal color PSYCHIATRIC: Normal affect Course Vital Signs Vital signs: Vital Signs Temperature 97.4 F L 05/12/22 00:07 Pulse Rate 80 05/12/22 00:07 Respiratory Rate 18 05/12/22 00:07 Blood Pressure 129/85 05/12/22 00:07 Pulse Oximetry 100 05/12/22 00:07 Oxygen Delivery Room Air 05/12/22 00:07 Temperature 97.4 F L 05/12/22 00:07 Pulse Rate 80 05/12/22 00:07 Respiratory Rate 18 05/12/22 00:07 Blood Pressure 129/85 05/12/22 00:07 Pulse Oximetry 100 05/12/22 00:07 Oxygen Delivery Room Air 05/12/22 00:07 Medical Decision Making MDM Narrative Medical decision making narrative: This is a 28-year-old female presenting ED with chief complaint of syncope. Patient has multiple reasons for having a syncopal event including significa
--- NOTE | 2022-05-12 01:50 | PC.NURSE ---
Talked to Sophai in lab to add on Trop I at 01:50
[2022-05-12 02:05] VITALS: PULSE 94
[2022-05-12 02:06] VITALS: BP 139/97; PULSE 95; RESP 24; O2SAT 100
[2022-05-12 02:08] VITALS: BP 134/94; BP 136/97; BP 139/97; PULSE 78; PULSE 80
[2022-05-12] MEDS: ACETAMINOPHEN 500 MG TABLET 1000 MG PO (02:09)
[2022-05-12] MEDS: IBUPROFEN 400 MG TABLET 800 MG PO (02:09)
[2022-05-12 02:12] LABS: Troponin I < 0.012 ng/mL (0.000-0.034)
== END 2022-05-12 03:10 | disposition home or self-care (01) ==
PROVIDERS: Emergency Provider Emergency Medicine; PCP Internal Medicine
DX: R55 Syncope and collapse (principal); S80.211A Abrasion, right knee, initial encounter; I10 Essential (primary) hypertension; F17.210 Nicotine dependence, cigarettes, uncomplicated; W18.39XA Other fall on same level, initial encounter
CPT/HCPCS: 36415; 71045; 73564; 80053; 81025; 84484; 85025; 93005; 99284; A9270

== ENCOUNTER 2022-12-28 10:33 | Outpatient (CLI) | payer OTHER, SELFPAY ==
--- NOTE | ~2022-12-28 | US_ITS ---
Pelvic ultrasound. Clinical History: First trimester , establish dates and viability Technique: Realtime transabdominal and transvaginal scanning of the pelvis was performed. Color flow Doppler and Doppler spectral analysis were performed. Findings: The uterus is anteverted, and contains an intrauterine gestation. Curtis-rump length of 7 mm corresponds to an estimated gestational age of 6 weeks 4 days. heart rate is 116 bpm. Very sma ll subchorionic hemorrhage noted.. The right ovary measures 1.4 x 2.1 x 1.3 cm. No significant right ovarian or adnexal mass is seen. The left ovary measures 3.2 x 1.6 x 1.7 cm. No significant left ovarian or adnexal mass is seen. There is no evidence of free fluid in the cul de sac. Impression: Live intrauterine gestation with estimated gestational age of 6 weeks 4 days. heart rate is 116 bpm. MIKE by sonographic evaluation is 08/19/2023. Very small subchorionic hemorrhage. Reviewed, dictated and finalized at location . Impression: Live intrauterine gestation with estimated gestational age of 6 weeks 4 days. F etal heart rate is 116 bpm. MIKE by sonographic evaluation is 08/19/2023. Very small subchorionic hemorrhage.
== END 2022-12-28 10:34 | disposition home or self-care (01) ==
LOC: ANHIMG 10:36
PROVIDERS: PCP Internal Medicine; Visit Provider Internal Medicine
DX: Z36.89 Encounter for other specified antenatal screening (principal); Z3A.01 Less than 8 weeks gestation of pregnancy
CPT/HCPCS: 76801

== ENCOUNTER → 2023-04-12 15:41 | Outpatient (CLI) | payer OTHER, SELFPAY ==
--- NOTE | ~2023-04-12 | XR_ITS ---
EXAM: XR foot LT min 3V DATE: 04/12/2023 16:13 HISTORY: Pain . COMPARISON: 07/16/2021. FINDINGS: Normal mineralization. No fracture or dislocation. No lytic or blastic lesion. Mild hallux valgus and first MTP degenerative change. No erosion or periosteal change. Forefoot soft tissue swel ling. IMPRESSION: No acute osseous finding in the left foot. Reviewed, dictated and finalized at location K.
== END ==
PROVIDERS: PCP Internal Medicine; Visit Provider Internal Medicine
DX: M79.672 Pain in left foot (principal)
CPT/HCPCS: 73630

== ENCOUNTER 2023-07-18 12:03 | Outpatient (CLI) | payer OTHER, SELFPAY ==
[2023-07-18 12:52] LABS: Creatinine Urine 44.5 mg/dL; Total Protein Urine Random 9 mg/dL
[2023-07-18 12:54] LABS: Basophils Percent Auto 0.5 % (0.2-1.2); Eosinophils Absolute Auto 0.1 K/mm3 (0-0.3); Eosinophils Percent Auto 1.8 % (0-4.4); Hematocrit 35.6 % (37.0-47.0); Immature Granulocyte Absolute 0.11 K/mm3 (0.00-0.031); Immature Granulocyte Percent A 1.4 % (0-0.5); Lymphocytes Percent Auto 21.7 % (18.3-44.2); Mean Corpuscular HGB Conc 33.7 g/dl (32-36); Mean Corpuscular Hemoglobin 32.9 pg (26-34); Mean Corpuscular Volume 97.5 fl (80-100); Monocytes Absolute Auto 0.8 K/mm3 (0.1-0.6); Monocytes Percent Auto 10.1 % (2.6-8.5); Neutrophils Absolute Auto 5.1 K/mm3 (1.3-6.7); Neutrophils Percent Auto 64.5 % (45.5-73.1); Platelet Count Result 204 k/mm3 (150-375); Red Blood Count 3.65 M/mm3 (4.2-5.4); Red Cell Distribution Width 13.2 % (11.5-14.5); White Blood Count 7.9 K/mm3 (4.5-10.0)
[2023-07-18 13:06] LABS: Alanine Aminotransferase 21 U/L (6-35); Albumin Level 3.7 g/dL (3.5-5.1); Alkaline Phosphatase 85 U/L (38-126); Anion Gap 8 mmol/L (8-16); Aspartate Amino Transferase 27 U/L (14-36); Bilirubin,Total 0.3 mg/dL (0.2-1.3); Blood Urea Nitrogen 9 mg/dL (7-17); Calcium 9.4 mg/dL (8.4-10.2); Carbon Dioxide 21 mmol/L (22-30); Chloride 105 mmol/L (98-107); Estimated Glomerular Filt Rate > 60; Glucose 90 mg/dL (65-110); Sodium 134 mmol/L (137-145)
== END 2023-07-18 12:04 | disposition home or self-care (01) ==
LOC: ANHLAB 12:08
PROVIDERS: PCP Internal Medicine; Visit Provider Obstetrics & Gynecology
DX: O16.9 Unspecified maternal hypertension, unspecified trimester (principal)
CPT/HCPCS: 36415; 80053; 81050; 82570; 84156; 85025

== ENCOUNTER 2023-07-20 12:18 | Outpatient (CLI) | payer OTHER, SELFPAY ==
[2023-07-20 12:54] LABS: Total Volume 24 Hour Urine 2900 ml
[2023-07-20 12:55] LABS: Total Volume 24 Hour Urine 2900 ml
[2023-07-20 12:59] LABS: Specific Gravity Ur 1.025
[2023-07-20 13:04] LABS: Creatinine 24 Hour Urine 2.1 gm/24 (0.8-1.8); Creatinine Urine 75.1 mg/dL; Total Protein Urine 24 Hr 261 mg/24hr (28-141); Total Protein Urine Random 9 mg/dL
== END 2023-07-20 12:19 | disposition home or self-care (01) ==
LOC: ANHLAB 12:23
PROVIDERS: PCP Internal Medicine; Visit Provider Obstetrics & Gynecology
DX: I10 Essential (primary) hypertension (principal)
CPT/HCPCS: 81050; 82570; 84156

== ENCOUNTER 2023-07-24 12:12 | Inpatient (IN) | payer OTHER, MEDICAID, SELFPAY ==
[2023-07-24 12:57] VITALS: BP 118/80; PULSE 97
[2023-07-24 13:01] VITALS: BP 125/76; PULSE 97
[2023-07-24 13:14] LABS: Appearance Urine Cloudy (Clear); Bacteria Urine None Seen /hpf; Bilirubin Urine Negative (Negative); Blood Urine Negative (Negative); Color Urine Dark Yellow (Yellow); Glucose Urine UA Negative (Negative); Ketones Urine Negative (Negative); Leukocyte Esterase Ur Negative LEU/UL (NEGATIVE); Nitrate Urine Negative (Negative); Protein Urine Trace mg/dL (Negative); RBC Urine 0-2 /hpf (0-2); Specific Grav Ur 1.023 (1.001-1.035); Squamous Epithelial Cell Urine Few /hpf (Few); WBC Urine 0-5 /hpf (0-3); pH Urine 6.5 (5.0-9.0)
[2023-07-24 13:19] LABS: Creatinine Urine 176.4 mg/dL
[2023-07-24 13:21] LABS: Total Protein Urine Random < 5 mg/dL; Ur Ttl Prot Creatinine Ratio < 0.03 mg/mg (0-0.20)
[2023-07-24 13:36] LABS: Add Urine Microscopic? YES
[2023-07-24 13:54] LABS: Basophils Percent Auto 0.4 % (0.2-1.2); Eosinophils Absolute Auto 0.1 K/mm3 (0-0.3); Eosinophils Percent Auto 1.2 % (0-4.4); Hematocrit 34.9 % (37.0-47.0); Immature Granulocyte Absolute 0.05 K/mm3 (0.00-0.031); Immature Granulocyte Percent A 0.7 % (0-0.5); Lymphocytes Absolute Auto 1.57 K/mm3 (0.9-3.2); Lymphocytes Percent Auto 20.5 % (18.3-44.2); Mean Corpuscular HGB Conc 34.4 g/dl (32-36); Mean Corpuscular Hemoglobin 33.1 pg (26-34); Mean Corpuscular Volume 96.1 fl (80-100); Mean Platelet Volume 9.1 fl (7.4-10.4); Monocytes Absolute Auto 0.6 K/mm3 (0.1-0.6); Monocytes Percent Auto 8.1 % (2.6-8.5); Neutrophils Absolute Auto 5.3 K/mm3 (1.3-6.7); Neutrophils Percent Auto 69.1 % (45.5-73.1); Platelet Count Result 208 k/mm3 (150-375); Red Blood Count 3.63 M/mm3 (4.2-5.4); Red Cell Distribution Width 13.5 % (11.5-14.5); White Blood Count 7.7 K/mm3 (4.5-10.0)
[2023-07-24 14:03] LABS: Alanine Aminotransferase 23 U/L (6-35); Albumin Level 3.7 g/dL (3.5-5.1); Alkaline Phosphatase 98 U/L (38-126); Anion Gap 7 mmol/L (8-16); Aspartate Amino Transferase 37 U/L (14-36); Bilirubin,Total 0.3 mg/dL (0.2-1.3); Blood Urea Nitrogen 9 mg/dL (7-17); Calcium 9.2 mg/dL (8.4-10.2); Carbon Dioxide 19 mmol/L (22-30); Chloride 105 mmol/L (98-107); Estimated Glomerular Filt Rate > 60; Glucose 91 mg/dL (65-110); Potassium 3.7 mmol/L (3.4-5.0); Sodium 131 mmol/L (137-145); Uric Acid 5.6 mg/dL (2.5-7.5)
[2023-07-25 09:16] LABS: Rapid Plasma Reagin Non-Reactive (NonReactive)
--- NOTE | 2023-07-25 12:28 | PM.IMHP ---
H&P: HPI History of Present Illness Date/Time: 07/25/23 12:28 Chief Complaint: elevated BPs Narrative: Sarah is a 37yo G1 @ 36.1wks who presented to L&D after routine care in office. She was found to have elevated blood pressures; reports having some severe range BPs that resolved spontaneously. She has been having some mild headaches. NST was reassuring; BPs were normal. PEC w/u was also completely normal; no protein in her urine. She was discharged home. Her is complicated by: - RA & Sjogren syndrome- Hydroxychloriquine - HTN- carvedilol 25 mg daily- switched to labetalol 200mg BID (01/08) --> 300 mg BID 07/24/23 - ADHD - AMA- MFM consult/ testing at 32-34 wk - THC use - Low lying placenta --- RESOLVED - GBS positive Review of Systems Constitutional: Constitutional: Denies chills, Denies fever(s) and Denies headache(s) Eyes: Eyes: Denies change in vision ENT: Denies headache(s) Cardiovascular: Cardiovascular: Denies chest pain and Denies dyspnea Respiratory: Respiratory: Denies dyspnea Genitourinary: Genitourinary: Denies abnormal vaginal bleeding and Denies vaginal discharge Neurologic: Denies headache(s) Psychiatric: Psychiatric: Denies anxiety and Denies depression [facility] Past Medical History Medical History HTN (hypertension) Rheumatoid arthritis Sjogren syndrome with inflammatory arthritis Suppression of menses Surgical History Surgical History History of ankle surgery History of cholecystectomy Hx of breast reduction, elective Family History Family History Other Unknown family medical history Social History Social History Social History: Patient uses alcohol occasionally, smokes pack cigarettes every 2 days. uses MJ occasionally. Smoking status: Former smoker Alcohol intake: never Substance use: never Substance use type: marijuana Lack of Transportation: No Lack of Food: Never True Current Housing: I Have Housing Concerned About Future Housing: No Difficulty Paying Gas/Electric Bills: No Difficulty Paying for Meds: No Currently Unemployed: YES Education: Master's Degree or Higher Difficulty w/ Childcare or Family Care: No Living arrangements: with family Occupation/Education: occupation Gender identity (if verbalized by the patient): Female Sexual Orientation (if Verbalized by the Patient): Straight or Heterosexual Spiritual care concerns: No Meds Home Medications and Allergies Home Medications Medication Instructions Recorded Confirmed Type hydroxychloroquine 200 mg tablet 200 mg PO BID 03/24/21 07/24/23 History (Plaquenil) aripiprazole 5 mg tablet 5 mg PO DAILY 01/08/23 07/24/23 History trazodone 50 mg tablet 50 mg PO QHS PRN Sleep 01/08/23 07/24/23 History adalimumab 40 mg/0.8 mL See Rx Instructions subcut .COMPLEX 03/26/23 07/24/23 History subcutaneous syringe kit (Humira) sertraline 50 mg tablet (Zoloft) 50 mg PO DAILY 04/24/23 07/24/23 History labetalol 200 mg tablet 200 mg PO Q12H #60 tabs 06/25/23 07/24/23 Rx Allergies Allergy/AdvReac Type Severity Reaction Status Date / Time amoxicillin Allergy Intermediate Hives Verified 07/24/23 11:14 Vital Signs Vital Signs - 24 hr 07/24/23 12:57 07/24/23 13:01 Pulse Rate 97 97 Blood Pressure 118/80 125/76 Exam Const: General: cooperative, no acute distress and obese Nutritional Appearance: obese Orientation/consciousness: patient oriented x3 Resp: Effort & Inspection: normal respiratory effort Cardio: Rate: regular rate GI: GI Palp: No abdominal tenderness : Other: NST: reactive TOCO: no ctxs Membranes: intact Presentation: cephalic Skin: General skin exam: normal color Neuro: General: patient oriented x3 Ext
--- NOTE | 2023-07-25 12:33 | PM.OBDSVD ---
DS: Admitting Diagnosis Discharge Date 07/24/23 Admitting Diagnosis CHTN DS: Discharge Diagnosis Discharge Diagnosis Plan CHTN OB - DS: Summary OB Procedures : NST and PIH Mgmt OB Procedures Intrapartum: Other (discharge home ) OB Procedures: : Other (N/A) Status at Discharge Functional status at discharge: independent ambulation Overall status at discharge: patient is back to baseline Time Spent with Patient Time attestation: Total time spent providing and/or coordinating discharge services: Time spent: Less than 30 minutes Exam Const: General: cooperative, comfortable, no acute distress and obese Resp: Effort & Inspection: normal respiratory effort Cardio: Rate: regular rate GI: GI Palp: No abdominal tenderness : Other: NST reactive Skin: General skin exam: normal color Neuro: General: patient oriented x3 Extrem: General: normal to inspection Psych: Appearance: grossly normal DS: Data Data Completed and Pending Labs on day of discharge: Labs from last 24 hours 07/24/23 12:34 WBC 7.7 RBC 3.63 L Hgb 12.0 Hct 34.9 L MCV 96.1 MCH 33.1 MCHC 34.4 RDW 13.5 Plt Count 208 MPV 9.1 Immature Gran % (Auto) 0.7 H Neut % (Auto) 69.1 Lymph % (Auto) 20.5 [place] % (Auto) 8.1 Eos % (Auto) 1.2 Baso % (Auto) 0.4 Lymph # (Auto) 1.57 [place] # (Auto) 0.6 Eos # (Auto) 0.1 Baso # (Auto) 0.0 Abs Immat Gran (auto) 0.05 H Absolute Neuts (auto) 5.3 Absolute Nucleated RBC 0.0 Nucleated RBC % 0.0 Sodium 131 L Potassium 3.7 Chloride 105 Carbon Dioxide 19 L Anion Gap 7 L BUN 9 Creatinine 0.50 L Estim Creat Clear Calc Not Reportable Estimated GFR > 60 Glucose 91 Uric Acid 5.6 Calcium 9.2 Total Bilirubin 0.3 AST 37 H ALT 23 Alkaline Phosphatase 98 Total Protein 7.0 Albumin 3.7 Urine Color Dark yellow Urine Appearance Cloudy H Urine pH 6.5 Ur Specific [place] 1.023 Urine Protein Trace Urine Glucose (UA) Negative Urine Ketones Negative Ur Blood (Man) Negative Urine Nitrate Negative Urine Bilirubin Negative Urine Urobilinogen 1.0 Ur Leukocyte Esterase Negative Urine RBC 0-2 Urine WBC 0-5 Ur Squamous Epith Cells Few Urine Bacteria None seen Urine Casts 3-5 U Random Total Protein < 5 Urine Creatinine 176.4 Protein/Creat Ratio 2 < 0.03 RPR Non-reactive Blood Type A Positive Antibody Screen Negative Discharge Plan Discharge Attending physician on discharge: Felicity Hogan Discharging Clinician: Felicity Hogan Patient Disposition: Home, Self-Care Activity: as tolerated Diet: regular Discharge Instructions: OB ANTEPARTUM DISCHARGE INSTRUCTIONS This information is given to help you properly care for yourself at home after your discharge from the hospital. Follow these instructions until your doctor tells you otherwise. DIET: Eat Three Well Balanced Meals per Day Small Frequent Feedings Drink at Least Eight 8-Ounce Glasses of Caffeine-Free Beverages Daily Additional Diet Instructions: ACTIVITY: As Tolerated Additional Activity Instructions: RETURN TO LABOR AND DELIVERY IF YOU HAVE: Any Change In Baby's Normal Movement Pattern Any Leakage of Fluid Contractions 5-7 Minutes Apart with Increasing Intensity Vaginal Bleeding Worsening Signs of Hypertension in as per Handout Additional Reasons to Return to Labor and Delivery: OTHER INSTRUCTIONS: Please come to L&D on 07/30 @ 4 pm. Take 1.5 doses of your B/P medicine twice daily until delivery. FOLLOW-UP CARE: To see in/on Valuables released to patient or family? N/A Medications from home returned to patient? N/A I Acknowledge Receipt of and Understand the Above Instructions IF YOU HAVE ANY QUESTIONS REGARDING THESE INSTRUCTIONS, PLEASE CALL [phone]. IF PROBLEMS ARISE, CALL YOUR PROVIDER. IF EMERGENCY CARE IS NEEDED, [facility]S EMERGENCY ROOM IS AVAILABLE 24 HOURS A DAY.
== END 2023-07-24 14:35 | disposition home or self-care (01) | DRG 833 ==
PROVIDERS: Admitting Provider Obstetrics & Gynecology; PCP Internal Medicine; Visit Provider Obstetrics & Gynecology
DX: O10.913 Unspecified pre-existing hypertension complicating pregnancy, third trimester (principal); O99.891 Other specified diseases and conditions complicating pregnancy; M35.00 Sjogren syndrome, unspecified; M06.9 Rheumatoid arthritis, unspecified; O99.824 Streptococcus B carrier state complicating childbirth
CPT/HCPCS: 36415; 80053; 81001; 82570; 84156; 84550; 85025; 86592; 86850; 86900; 86901

== ENCOUNTER 2023-07-30 15:59 | Inpatient (IN) | payer OTHER, MEDICAID, SELFPAY ==
[2023-07-30] VITALS (13 sets, daily range): BP systolic 124–137; BP diastolic 68–81; PULSE 90–105; TEMP 36.2–36.9; O2SAT 98; BMI 52.2
--- NOTE | 2023-07-30 16:28 | LDADM ---
This patient, Sarah Cowan, was admitted to Labor/Delivery/Recovery 107 on 07/30/23 at 15:59. Plans for labor, pain management and were discussed with patient. Patient/family oriented to hospital policies and general routines including ID bracelet, bed and alarms, visiting hours, pain management, procedures, bathroom and other care routines, personal items, smoking policy, room service/diet and guest tray routines, security routines, and visiting hours. Patient/Family are encouraged to report perceived risks to care and to ask questions if they do not understand what they are told or what they should do. See [facility] for further documentation.
[2023-07-30 16:44] LABS: Basophils Percent Auto 0.4 % (0.2-1.2); Eosinophils Absolute Auto 0.1 K/mm3 (0-0.3); Eosinophils Percent Auto 1.2 % (0-4.4); Hematocrit 35.5 % (37.0-47.0); Hemoglobin 12.1 g/dL (12.0-15.0); Immature Granulocyte Absolute 0.08 K/mm3 (0.00-0.031); Immature Granulocyte Percent A 0.9 % (0-0.5); Mean Corpuscular HGB Conc 34.1 g/dl (32-36); Mean Corpuscular Hemoglobin 32.7 pg (26-34); Mean Corpuscular Volume 95.9 fl (80-100); Mean Platelet Volume 8.9 fl (7.4-10.4); Monocytes Absolute Auto 0.7 K/mm3 (0.1-0.6); Monocytes Percent Auto 7.4 % (2.6-8.5); Neutrophils Absolute Auto 6.2 K/mm3 (1.3-6.7); Neutrophils Percent Auto 68.1 % (45.5-73.1); Platelet Count Result 217 k/mm3 (150-375); Red Cell Distribution Width 13.4 % (11.5-14.5); White Blood Count 9.1 K/mm3 (4.5-10.0)
[2023-07-30] MEDS: DINOPROSTONE 10 MG VAG INSERT VAGINAL (16:44)
[2023-07-30 17:44] LABS: Alanine Aminotransferase 26 U/L (6-35); Albumin Level 3.8 g/dL (3.5-5.1); Alkaline Phosphatase 102 U/L (38-126); Anion Gap 6 mmol/L (8-16); Aspartate Amino Transferase 34 U/L (14-36); Bilirubin,Total 0.3 mg/dL (0.2-1.3); Blood Urea Nitrogen 11 mg/dL (7-17); Calcium 10.4 mg/dL (8.4-10.2); Carbon Dioxide 21 mmol/L (22-30); Chloride 103 mmol/L (98-107); Estimated CRCL calculation 188 ml/min; Estimated Glomerular Filt Rate > 60; Glucose 99 mg/dL (65-110); Potassium 3.8 mmol/L (3.4-5.0); Sodium 130 mmol/L (137-145)
--- NOTE | 2023-07-30 18:17 | WPDANESEPP ---
Anes - Eval Pre Procedure Procedure: labor epidural Date/Time: 07/30/23 18:17 Surgeon: yehuda Preop Diagnosis: pain during labor Pre Op Diagnosis: Induction of Labor Patient Data Age: 37 Gender: F Height: 1.68 m Weight: 147 kg Last Vital Signs Temp 36.9 C 07/30/23 16:42 Pulse 96 07/30/23 18:16 BP 126/79 07/30/23 18:16 O2 Del Method Room Air 07/30/23 16:23 Allergies Allergy/AdvReac Type Severity Reaction Status Date / Time amoxicillin Allergy Intermediate Hives Verified 07/24/23 11:14 Home Medications Medication Instructions Recorded Confirmed Type hydroxychloroquine 200 mg tablet 200 mg PO BID 03/24/21 07/30/23 History (Plaquenil) aripiprazole 5 mg tablet 5 mg PO DAILY 01/08/23 07/30/23 History trazodone 50 mg tablet 50 mg PO QHS PRN Sleep 01/08/23 07/30/23 History adalimumab 40 mg/0.8 mL See Rx Instructions subcut .COMPLEX 03/26/23 07/30/23 History subcutaneous syringe kit (Humira) sertraline 50 mg tablet (Zoloft) 50 mg PO DAILY 04/24/23 07/30/23 History labetalol 200 mg tablet 200 mg PO Q12H #60 tabs 06/25/23 07/30/23 Rx Laboratory Tests 07/30/23 07/30/23 16:19 16:37 WBC 9.1 K/mm3 (4.5-10.0) RBC 3.70 L M/mm3 (4.2-5.4) Hgb 12.1 g/dL (12.0-15.0) Hct 35.5 L % (37.0-47.0) MCV 95.9 fl (80-100) MCH 32.7 pg (26-34) MCHC 34.1 g/dl (32-36) RDW 13.4 % (11.5-14.5) Plt Count 217 k/mm3 (150-375) MPV 8.9 fl (7.4-10.4) Immature Gran % (Auto) 0.9 H % (0-0.5) Neut % (Auto) 68.1 % (45.5-73.1) Lymph % (Auto) 22.0 % (18.3-44.2) [place] % (Auto) 7.4 % (2.6-8.5) Eos % (Auto) 1.2 % (0-4.4) Baso % (Auto) 0.4 % (0.2-1.2) Lymph # (Auto) 2.00 K/mm3 (0.9-3.2) [place] # (Auto) 0.7 H K/mm3 (0.1-0.6) Eos # (Auto) 0.1 K/mm3 (0-0.3) Baso # (Auto) 0.0 K/mm3 (0.0-0.1) Abs Immat Gran (auto) 0.08 H K/mm3 (0.00-0.031) Absolute Neuts (auto) 6.2 K/mm3 (1.3-6.7) Absolute Nucleated RBC 0.0 K/mm3 (0.0-0.012) Nucleated RBC % 0.0 % (0.0-0.2) Sodium 130 L mmol/L (137-145) Potassium 3.8 mmol/L (3.4-5.0) Chloride 103 mmol/L (98-107) Carbon Dioxide 21 L mmol/L (22-30) Anion Gap 6 L mmol/L (8-16) BUN 11 mg/dL (7-17) Creatinine 0.50 L mg/dL (0.7-1.0) Estim Creat Clear Calc 188 ml/min Estimated GFR > 60 (59 - ) Glucose 99 mg/dL (65-110) Calcium 10.4 H mg/dL (8.4-10.2) Total Bilirubin 0.3 mg/dL (0.2-1.3) AST 34 U/L (14-36) ALT 26 U/L (6-35) Alkaline Phosphatase 102 U/L (38-126) Total Protein 7.0 g/dL (6.3-8.2) Albumin 3.8 g/dL (3.5-5.1) RPR Pending Blood Type A Positive Antibody Screen Negative Patient hx anesthesia problems: none Family hx anesthesia problems: none Results Review: All pre-operative results and documents have been reviewed as part of the pre-operative evaluation. [facility] Past Medical History Medical History HTN (hypertension) Rheumatoid arthritis Sjogren syndrome with inflammatory arthritis Suppression of menses Surgical History Surgical History History of ankle surgery History of cholecystectomy Hx of breast reduction, elective Family History Family History Other Unknown family medical history Social History Social History Social History: Patient uses alcohol occasionally, smokes pack cigarettes every 2 days. uses MJ occasionally. Smoking status: Former smoker Tobacco type: cigarettes Alcohol intake: never Substance use: never Substance use type: marijuana Lack of Transportation: No L
[2023-07-30] MEDS: LACTATED RINGERS 1,000 ML 125 ML IV CONT (18:35)
[2023-07-30] MEDS: VANCOMYCIN 1,250 MG/NS 250 ML 1,250 MG/250 ML BAG 166.67 MG IVPB ×2 (18:36→20:08)
[2023-07-30] MEDS: traZODone HCL 50 MG TABLET PO (21:22)
[2023-07-30] MEDS: SERTRALINE HCL 50 MG TABLET PO (21:22)
[2023-07-30] MEDS: LABETALOL HCL 100 MG TABLET 200 MG PO (21:22)
[2023-07-30] MEDS: ARIPiprazole 5 MG TABLET PO (21:22)
[2023-07-31] VITALS (258 sets, daily range): BP systolic 97–155; BP diastolic 49–131; PULSE 73–127; TEMP 36.4–37.4; O2SAT 96–100
[2023-07-31] MEDS: OXYTOCIN 30 UNITS/NS 500 ML 30 UNITS/500 ML BAG IV CONT (06:53)
--- NOTE | 2023-07-31 07:30 | PM.IMHP ---
H&P: HPI History of Present Illness Date/Time: 07/31/23 07:30 Chief Complaint: induction of labor Narrative: Sarah is a 37yo G1 @ 37.1wks who presented to L&D for induction of labor. She has chronic HTN and has been having elevations in her BPs and starting to get headaches. She has been following with MFM and doing testing. She reports good movement. No vb or lof. Her is complicated by: - RA & Sjogren syndrome- Hydroxychloriquine - HTN- carvedilol 25 mg daily- switched to labetalol 200mg BID (01/08) --> 300 mg BID 07/24/23 - ADHD - AMA- MFM consult/ testing at 32-34 wk - THC use - Low lying placenta --- RESOLVED - GBS positive Review of Systems Constitutional: Constitutional: Denies chills, Denies fever(s) and Denies headache(s) Eyes: Eyes: Denies change in vision ENT: Denies headache(s) Cardiovascular: Cardiovascular: Denies chest pain and Denies dyspnea Respiratory: Respiratory: Denies dyspnea Genitourinary: Genitourinary: Denies abnormal vaginal bleeding and Denies vaginal discharge Neurologic: Denies headache(s) Psychiatric: Psychiatric: Denies anxiety and Denies depression [facility] Past Medical History Medical History HTN (hypertension) Rheumatoid arthritis Sjogren syndrome with inflammatory arthritis Suppression of menses Surgical History Surgical History History of ankle surgery History of cholecystectomy Hx of breast reduction, elective Family History Family History Other Unknown family medical history Social History Social History Social History: Patient uses alcohol occasionally, smokes pack cigarettes every 2 days. uses MJ occasionally. Smoking status: Former smoker Tobacco type: cigarettes Alcohol intake: never Substance use: never Substance use type: marijuana Lack of Transportation: No Lack of Food: Never True Current Housing: I Have Housing Concerned About Future Housing: No Difficulty Paying Gas/Electric Bills: No Difficulty Paying for Meds: No Currently Unemployed: No Education: Master's Degree or Higher Difficulty w/ Childcare or Family Care: No Living arrangements: with family Occupation/Education: occupation Gender identity (if verbalized by the patient): Female Sexual Orientation (if Verbalized by the Patient): Straight or Heterosexual Spiritual care concerns: No Meds Home Medications and Allergies Home Medications Medication Instructions Recorded Confirmed Type hydroxychloroquine 200 mg tablet 200 mg PO BID 03/24/21 07/30/23 History (Plaquenil) aripiprazole 5 mg tablet 5 mg PO DAILY 01/08/23 07/30/23 History trazodone 50 mg tablet 50 mg PO QHS PRN Sleep 01/08/23 07/30/23 History adalimumab 40 mg/0.8 mL See Rx Instructions subcut .COMPLEX 03/26/23 07/30/23 History subcutaneous syringe kit (Humira) sertraline 50 mg tablet (Zoloft) 50 mg PO DAILY 04/24/23 07/30/23 History labetalol 200 mg tablet 200 mg PO Q12H #60 tabs 06/25/23 07/30/23 Rx Allergies Allergy/AdvReac Type Severity Reaction Status Date / Time amoxicillin Allergy Intermediate Hives Verified 07/24/23 11:14 Vital Signs Vital Signs - 24 hr 07/30/23 16:23 07/30/23 16:42 07/30/23 17:01 Temperature 98.4 F Pulse Rate 97 Blood Pressure 137/77 Pulse Oximetry Oxygen Delivery Room Air 07/30/23 17:16 07/30/23 17:31 07/30/23 17:46 Temperature Pulse Rate 90 90 94 Blood Pressure 124/72 129/75 132/81 Pulse Oximetry Oxygen Delivery 07/30/23 18:01 07/30/23 18:16 07/30/23 18:31 Temperature 97.1 F L Pulse Rate 93 96 97 Blood Pressure 127/71 126/79 124/68 Pulse Oximetry Oxygen Delivery 07/30/23 18:49 07/30/23 18:48 07/30/23 21:18 Temperature 97.3 F L Pulse Rat
--- NOTE | 2023-07-31 07:43 | WPDHPUPDATE1 ---
History and Physical Update Update Date/Time: 07/31/23 07:43 History and Physical has been reviewed, including an updated exam of the patient. There are NO changes in the patient's condition. Risks, benefits, and alternatives have been discussed and questions answered. Patient agrees to proceed with procedure.
[2023-07-31] MEDS: LABETALOL HCL 100 MG TABLET 200 MG PO ×2 (09:30→21:14)
[2023-07-31] MEDS: LACTATED RINGERS 1,000 ML 125 ML IV CONT ×2 (09:30→16:18)
[2023-07-31] MEDS: HYDROXYCHLOROQUINE SULFATE 200 MG TABLET PO ×2 (09:46→21:15)
[2023-07-31 10:49] LABS: Rapid Plasma Reagin Non-Reactive (NonReactive)
--- NOTE | 2023-07-31 12:43 | PM.OBPNLAB ---
Pain Control Date/time seen: 07/31/23 12:43 Pain control: epidural Pelvic Exam Dilation (cm): 1 Effacement (%): 20 station: -4 Amniotic membrane status: Intact Contractions Monitor mode: External Contraction frequency: 2 Status status: Category l Comments: 130/mod chin/ + accels/ no decels Assessment and Plan Pitocin rate (mU/min): 12 Assessment: induction ongoing Plan: continuous present management Comments: - Cook balloon placed w/ 80cc in each balloon; will tug on every hours; plan to leave in place <12hrs - continue pitocin
[2023-07-31] MEDS: ONDANSETRON INJ 4 MG/2 ML VIAL IV PUSH (16:18)
--- NOTE | 2023-07-31 19:00 | PM.OBPNLAB ---
Pain Control Date/time seen: 07/31/23 19:00 Pain control: epidural Pelvic Exam Dilation (cm): 5 Effacement (%): 80 station: -4 Amniotic membrane status: Intact Contractions Monitor mode: External Contraction frequency: 2 (-3) Status status: Category l Assessment and Plan Pitocin rate (mU/min): 24 Assessment: induction ongoing Plan: continuous present management Comments: unable to rupture membranes due to high head station, continue position changes and pitocin
[2023-07-31 20:26] LABS: Vancomycin Trough 8.8 ug/mL (10.0-20.0)
[2023-07-31] MEDS: SERTRALINE HCL 50 MG TABLET PO (21:14)
[2023-07-31] MEDS: ARIPiprazole 5 MG TABLET PO (21:15)
[2023-07-31] MEDS: traZODone HCL 50 MG TABLET PO (21:17)
[2023-08-01] VITALS (203 sets, daily range): BP systolic 96–136; BP diastolic 47–89; PULSE 67–116; RESP 12–19; TEMP 35.9–37.1; O2SAT 95–100
[2023-08-01] MEDS: LACTATED RINGERS 1,000 ML 125 ML IV CONT ×2 (02:21→10:45)
[2023-08-01] MEDS: OXYTOCIN 30 UNITS/NS 500 ML 30 UNITS/500 ML BAG IV CONT (06:18)
[2023-08-01] MEDS: ONDANSETRON INJ 4 MG/2 ML VIAL IV PUSH (07:28)
--- NOTE | 2023-08-01 07:36 | PM.OBPNLAB ---
Pain Control Date/time seen: 08/01/23 07:36 Pain control: epidural Pelvic Exam Dilation (cm): 6 Effacement (%): 80 station: -4 Amniotic membrane status: Ruptured (AROM, clear 0730) Contractions Monitor mode: External Contraction frequency: 2 (-3) Status status: Category l Assessment and Plan Pitocin rate (mU/min): 30 Plan: continuous present management Comments: - station still very high and no descent w/ amniotomy - discussed that if no change in station in 4 hours, will proceed with primary as she has been 6cm since 0430
[2023-08-01] MEDS: LABETALOL HCL 100 MG TABLET 200 MG PO ×2 (09:54→21:08)
--- NOTE | 2023-08-01 10:20 | PM.OBPNLAB ---
Pain Control Date/time seen: 08/01/23 10:20 Pain control: epidural Pelvic Exam Dilation (cm): 6 Effacement (%): 80 station: -4 Amniotic membrane status: Ruptured (AROM, clear 0730) Contractions Monitor mode: Internal Contraction frequency: 4 (-3) Status status: Category l Assessment and Plan Pitocin rate (mU/min): 40 Plan: Comments: - pt has been max'ed on pitocin, ruptured and still no descent; has been 6cm for 6 hours - proceed with primary low transverse section. risks and benefits discussed in detail - high risk of hemorrhage; will have medications readily available
--- NOTE | 2023-08-01 10:42 | WPDANESEPPF ---
Anes - Initial Pre Proc Eval Procedure: Operation Date: 08/01/23 10:30 Proposed Procedures p Section - Felicity Hogan MD Date/Time: 08/01/23 10:42 Surgeon: Felicity Hogan MD Pre Op Diagnosis: Induction of Labor Patient Data Age: 37 Gender: F Height: 1.68 m Weight: 147 kg Last Vital Signs Temp 36.8 C 08/01/23 08:28 Pulse 83 08/01/23 10:40 Resp 16 08/01/23 08:28 BP 133/76 08/01/23 10:40 Pulse Ox 100 08/01/23 10:31 O2 Del Method Room Air 07/30/23 16:23 Allergies Allergy/AdvReac Type Severity Reaction Status Date / Time amoxicillin Allergy Intermediate Hives Verified 07/24/23 11:14 Home Medications Medication Instructions Recorded Confirmed Type hydroxychloroquine 200 mg tablet 200 mg PO BID 03/24/21 07/30/23 History (Plaquenil) aripiprazole 5 mg tablet 5 mg PO DAILY 01/08/23 07/30/23 History trazodone 50 mg tablet 50 mg PO QHS PRN Sleep 01/08/23 07/30/23 History adalimumab 40 mg/0.8 mL See Rx Instructions subcut .COMPLEX 03/26/23 07/30/23 History subcutaneous syringe kit (Humira) sertraline 50 mg tablet (Zoloft) 50 mg PO DAILY 04/24/23 07/30/23 History labetalol 200 mg tablet 200 mg PO Q12H #60 tabs 06/25/23 07/30/23 Rx Laboratory Tests 07/30/23 07/31/23 16:19 19:31 Vancomycin Trough 8.8 L ug/mL (10.0-20.0) RPR Non-reactive (NonReactive) Patient hx anesthesia problems: none Family hx anesthesia problems: none Results Review: All pre-operative results and documents have been reviewed as part of the pre-operative evaluation. [facility] Past Medical History Medical History HTN (hypertension) Rheumatoid arthritis Sjogren syndrome with inflammatory arthritis Suppression of menses Surgical History Surgical History History of ankle surgery History of cholecystectomy Hx of breast reduction, elective Family History Family History Other Unknown family medical history Social History Social History Social History: Patient uses alcohol occasionally, smokes pack cigarettes every 2 days. uses MJ occasionally. Smoking status: Former smoker Tobacco type: cigarettes Alcohol intake: never Substance use: never Substance use type: marijuana Lack of Transportation: No Lack of Food: Never True Current Housing: I Have Housing Concerned About Future Housing: No Difficulty Paying Gas/Electric Bills: No Difficulty Paying for Meds: No Currently Unemployed: No Education: Master's Degree or Higher Difficulty w/ Childcare or Family Care: No Living arrangements: with family Occupation/Education: occupation Gender identity (if verbalized by the patient): Female Sexual Orientation (if Verbalized by the Patient): Straight or Heterosexual Spiritual care concerns: No Anes - Eval Final PreProcedure Day of Procedure 08/01/23 10:42 Patient weight: super morbidly obese Heart: regular rate and rhythm Lungs: clear to auscultation and normal air movement Airway: Mallampati scale class II Neurological: alert and oriented Last oral intake: >/= 8 hours ASA classification: III Emergent: no Anesthetic plan: proceed Anesthesia type and monitoring: regional spinal and standard monitoring Results Review: All pre-operative results and documents have been reviewed as part of the pre-operative evaluation. Informed Consent: The patient's anesthetic plan and its attendant risks and benefits were discussed with the patient/family/POA. Questions were solicited and answers provided to the satisfaction of the patient/family/POA.
--- NOTE | 2023-08-01 11:58 | P.PCNOB_ITS ---
OB - Delivery Note Procedure Delivery date: 08/01/23 Procedure: Procedures Operation Date: 08/01/23 10:30 <No data on this case meets the specified criteria> Events: Chronic Hypertension and Positive Group B Strep (GBS) Intrapartal Events: Arrest of Dilation Induction method: Per Cervidil Protocol (and Cook balloon) Delivery augmentation: Rupture of Membranes and Pitocin Delivery monitor: External FHT and Internal Uterine Route of delivery: Quantitative Blood Loss (ml): 565 Anesthesia type: Epidural Disposition: Floor [place] Baby Date of : 08/01/23 Time of : 11:16 Weeks of gestation at delivery: 37 (.2) Infant gender: Male Weight (pounds): 8 Weight (ounces): 6 presentation: vertex position: Right Occiput Transverse Placenta delivery description: Manual Removal Cord Vessel Description: 3 Vessels, Nuchal Cord, Reduced and Clamped/Cut Narrative: She was counseled on all risks and benefits in detail. She was taken to the operating room where epidural was found to be adequate. She was then prepped and draped in the normal sterile fashion. She received gentamicin and had been receiving vancomycin due to GBS + and a time out was performed. A trexi was placed for adequate exposure. A Pfannenstiel incision was made in the skin and carried down to the underlying fascia. The fascia was nicked on either side of the midline and the fascial incision was extended laterally and superiorly using curved Perry scissors. The fascia was then elevated using Avel clamps and the underlying rectus muscles were dissected off the fascia, superiorly and inferiorly. The rectus muscles were then in the midline and the peritoneum was entered bluntly. Once adequate exposure was obtained, a Mobius self retractor was placed within the abdomen. A bladder flap was created. A low transverse incision was made on the lower uterine segment and clear fluid was no liliana. The occiput was brought to the hysterotomy but difficult to deliver so a Kiwi was placed and after one pull (no pop offs), the head was delivered. A nuchal cord was noted and reduced. The shoulders and body then followed without complications. The had spontaneous cry. The cord was clamped and cut and the infant was handed off to the awaiting pediatric nurse. A segment of the cord was collected for cord gases. The remaining cord blood was collected for typing. With pitocin infusing, the placenta delivered with gentle traction on the cord. The uterus was then cleared out of all clots and debris using a clean, moist lap. The hysterotomy was then repaired in a running, interlocking fashion using 0 Vicryl. A second layer imbricating suture was then made using 0 Vicryl. The hysterotomy was found to be hemostatic and good uterine tone was noted. The bilateral adnexa were examined and found to be normal. The pelvis was cleared of all clots and fluid. The Mobius retractor was removed from the abdomen. The peritoneum, muscle, and fascia were examined and made hemostatic with bovie cautery. The fascia was then repaired using two separate 0 Vicryl sutures in a running fashion. The subcutaneous tissue was then irrigated and made hemostatic with bovie cautery. The subcutaneous tissue was then reapproximated using 2-0 Vicryl. The skin was then closed using 4-0 Monocryl in a running subcuticular fashion. A Mepilex dressing was placed over the incision. Sponge, lap, needle and instrument counts were correct at the end of the procedure x2. The patient tolerated the procedure well and was taken to recovery in a stable condition. [facility] Delivery Billing
[2023-08-01] MEDS: MORPHINE SULFATE INJ (*CRX) 10 MG/ML AMP 2 MG IV PUSH ×2 (13:36→13:50)
--- NOTE | 2023-08-01 15:00 | OBPPTRN ---
Patient transferred to post room #290 via bed. Support person present. Oriented to unit, room, information board, rooming in, admission packet and security measures. Patient verbalizes understanding.
[2023-08-01] MEDS: HYDROcodone/acetaminophen (*CRX) 10-325 MG TABLET 1 TAB PO ×2 (16:40→21:08)
[2023-08-01] MEDS: DOCUSATE SODIUM 100 MG CAPSULE PO (16:40)
[2023-08-01] MEDS: SERTRALINE HCL 50 MG TABLET PO (16:40)
[2023-08-01] MEDS: HYDROXYCHLOROQUINE SULFATE 200 MG TABLET PO (16:40)
[2023-08-01] MEDS: ARIPiprazole 5 MG TABLET PO (16:41)
[2023-08-01] MEDS: IBUPROFEN 600 MG TABLET PO (21:08)
[2023-08-01] MEDS: traZODone HCL 50 MG TABLET PO (21:18)
[2023-08-02 05:00] VITALS: BP 106/62; PULSE 92; RESP 16; TEMP 36.4
[2023-08-02] MEDS: HYDROcodone/acetaminophen (*CRX) 10-325 MG TABLET 1 TAB PO ×5 (05:08→19:11)
[2023-08-02] MEDS: IBUPROFEN 600 MG TABLET PO ×3 (05:08→19:10)
[2023-08-02 05:34] LABS: Basophils Percent Auto 0.3 % (0.2-1.2); Eosinophils Absolute Auto 0.1 K/mm3 (0-0.3); Eosinophils Percent Auto 0.9 % (0-4.4); Hematocrit 32.7 % (37.0-47.0); Hemoglobin 11.2 g/dL (12.0-15.0); Immature Granulocyte Absolute 0.09 K/mm3 (0.00-0.031); Immature Granulocyte Percent A 0.8 % (0-0.5); Lymphocytes Absolute Auto 2.47 K/mm3 (0.9-3.2); Lymphocytes Percent Auto 21.6 % (18.3-44.2); Mean Corpuscular HGB Conc 34.3 g/dl (32-36); Mean Corpuscular Hemoglobin 32.9 pg (26-34); Mean Corpuscular Volume 96.2 fl (80-100); Mean Platelet Volume 9.2 fl (7.4-10.4); Monocytes Absolute Auto 0.9 K/mm3 (0.1-0.6); Monocytes Percent Auto 7.6 % (2.6-8.5); Neutrophils Absolute Auto 7.9 K/mm3 (1.3-6.7); Neutrophils Percent Auto 68.8 % (45.5-73.1); Platelet Count Result 192 k/mm3 (150-375); Red Cell Distribution Width 13.2 % (11.5-14.5); White Blood Count 11.4 K/mm3 (4.5-10.0)
[2023-08-02 05:48] LABS: Alanine Aminotransferase 23 U/L (6-35); Albumin Level 3.1 g/dL (3.5-5.1); Alkaline Phosphatase 89 U/L (38-126); Anion Gap 5 mmol/L (8-16); Aspartate Amino Transferase 34 U/L (14-36); Bilirubin,Total 0.3 mg/dL (0.2-1.3); Blood Urea Nitrogen 9 mg/dL (7-17); Calcium 8.7 mg/dL (8.4-10.2); Carbon Dioxide 22 mmol/L (22-30); Chloride 101 mmol/L (98-107); Estimated CRCL calculation 159 ml/min; Estimated Glomerular Filt Rate > 60; Glucose 116 mg/dL (65-110); Potassium 3.7 mmol/L (3.4-5.0); Sodium 128 mmol/L (137-145)
--- NOTE | 2023-08-02 07:19 | PM.OBPNVD ---
OB - PN: Subj Subjective Date/time seen: 08/02/23 08:45 Narrative: POD#1 Sarah reports doing well today. 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 Her pain is controlled. She is tolerating regular diet, voiding, passing gas, and ambulating without issues. She denies any issues with her incision. She is bottle feeding. She would not like her son circumcised. OB - PN: Obj Data Labs 08/02/23 05:13 08/02/23 05:13 Labs: Laboratory Results - last 24 hr 08/02/23 05:13 WBC 11.4 H RBC 3.40 L Hgb 11.2 L Hct 32.7 L MCV 96.2 MCH 32.9 MCHC 34.3 RDW 13.2 Plt Count 192 MPV 9.2 Immature Gran % (Auto) 0.8 H Neut % (Auto) 68.8 Lymph % (Auto) 21.6 [place] % (Auto) 7.6 Eos % (Auto) 0.9 Baso % (Auto) 0.3 Lymph # (Auto) 2.47 [place] # (Auto) 0.9 H Eos # (Auto) 0.1 Baso # (Auto) 0.0 Abs Immat Gran (auto) 0.09 H Absolute Neuts (auto) 7.9 H Absolute Nucleated RBC 0.0 Nucleated RBC % 0.0 Sodium 128 L Potassium 3.7 Chloride 101 Carbon Dioxide 22 Anion Gap 5 L BUN 9 Creatinine 0.60 L Estim Creat Clear Calc 159 Estimated GFR > 60 Glucose 116 H Calcium 8.7 Total Bilirubin 0.3 AST 34 ALT 23 Alkaline Phosphatase 89 Total Protein 6.0 L Albumin 3.1 L OB - PN A/P Assessment and Plan (1) S/P section: Code(s): Z98.891 - History of uterine scar from previous surgery Status: Acute (2) Chronic hypertension affecting : Code(s): O10.919 - Unspecified pre-existing hypertension complicating , unspecified trimester Status: Acute (3) Arrested active phase of labor: Code(s): O62.1 - Secondary uterine inertia Status: Acute Plan day: 1 Plan: routine care Time Spent With Patient Time: Total time spent is greater than 50% in coordination of care (as documented) at patient's floor/unit and/or counseling patient: Review of Systems Constitutional: Constitutional: Denies chills, Denies fever(s) and Denies headache(s) Eyes: Eyes: Denies change in vision ENT: Denies dizziness and Denies headache(s) Cardiovascular: Cardiovascular: Denies chest pain, Denies palpitations and Denies dyspnea Respiratory: Respiratory: Denies cough and Denies dyspnea Gastrointestinal: Gastrointestinal: Denies nausea and Denies vomiting Genitourinary: Comments: normal bleeding Neurologic: Denies dizziness and Denies headache(s) Endocrine: Endocrine: Denies palpitations Exam Const: General: cooperative, comfortable, no acute distress and obese Orientation/consciousness: patient oriented x3 Resp: Effort & Inspection: normal respiratory effort Auscultation: clear to auscultation bilaterally Cardio: Rate: regular rate GI: Inspection: non-distended and incision (covered with clean dressing) GI Palp: Yes abdominal tenderness (appropriate) and Yes Soft to palpation Auscultation: normal bowel sounds : Other: fundus firm Skin: General skin exam: normal color Neuro: General: patient oriented x3 Extrem: General: normal to inspection Psych: Appearance: grossly normal Affect: normal affect Attitude: cooperative
[2023-08-02 07:40] VITALS: BP 111/59; PULSE 96; RESP 16; TEMP 36.6; O2SAT 99
--- NOTE | 2023-08-02 08:15 | WPDANLDPN2 ---
Anes-Prog Note L&D Date/Time: 08/02/23 08:15 Comfortable throughout: section Neuraxial method: spinal Epidural/Spinal procedure site: clean & non-tender Neuro status: Neuro function grossly intact. Cardiovascular status: normal Respiratory status: normal Airway patency: baseline Mental status: baseline Post-Op hydration status: normal Vital Signs: Last Vital Signs Temp 36.4 C 08/02/23 05:00 Pulse 92 08/02/23 05:00 Resp 16 08/02/23 05:00 BP 106/62 08/02/23 05:00 Pulse Ox 97 08/01/23 15:45 O2 Del Method Room Air 08/01/23 14:00 Pain score (VAS): 0 I/O: Intake & Output 08/01/23 08/02/23 08/02/23 23:59 07:59 15:59 Intake Total 1000 Output Total 800 700 Balance -800 300 Post-procedural complaints: none Patient feedback: Patient satisfied with anesthetic care.
--- NOTE | 2023-08-02 08:16 | WPDANLDNPN2 ---
Anes-Prog Note L&D-Neuraxial Date/Time: 08/02/23 08:16 Neuraxial medications: intrathecal PF morphine Opiod-related complaints: none Patient feedback: Patient satisfied with post-operative pain management.
[2023-08-02] MEDS: DOCUSATE SODIUM 100 MG CAPSULE PO ×2 (08:50→16:51)
--- NOTE | 2023-08-02 08:50 | PC.NURSE ---
Breast pump provided due to maternal preference. Instructions given on cleaning, care, usage, that there should be no pain, pumping schedule for milk production, collection, and storage of human milk. Patient was assessed for correct placement, flange size, to pump for comfort and nipple stretching/stimulation for adequate milk production every 3 hours (8 times in 24 hours) 1-2 times at night.
[2023-08-02] MEDS: SERTRALINE HCL 50 MG TABLET PO (08:51)
[2023-08-02] MEDS: ARIPiprazole 5 MG TABLET PO (08:51)
[2023-08-02] MEDS: MULTIVIT/MIN/PREN/FOL AC/IRON TABLET 1 TAB PO (08:51)
[2023-08-02] MEDS: HYDROXYCHLOROQUINE SULFATE 200 MG TABLET PO ×2 (08:51→16:51)
[2023-08-02 08:52] VITALS: PULSE 96
[2023-08-02] MEDS: LABETALOL HCL 100 MG TABLET 200 MG PO ×2 (08:52→19:13)
--- NOTE | 2023-08-02 09:17 | PM.OBDSVD ---
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.1 - Secondary uterine inertia Status: Acute (3) Chronic hypertension affecting : Code(s): O10.919 - Unspecified pre-existing hypertension complicating , unspecified trimester Status: Acute OB - DS: Summary OB Procedures : NST, PIH Mgmt and Ultrasound OB Procedures Intrapartum: low cervical, transverse OB Procedures: : None Peripartum Data Delivery Method: Section Procedures: Procedures Operation Date: 08/01/23 10:30 Actual Procedure Side Surgeon p Section Bilateral Felicity Hogan MD 1: Gender: Male Disposition of : home Status at Discharge Functional status at discharge: independent ambulation Overall status at discharge: patient is back to baseline Time Spent with Patient Time attestation: Total time spent providing and/or coordinating discharge services: Time spent: Less than 30 minutes Exam Const: General: cooperative, comfortable, no acute distress and obese Orientation/consciousness: patient oriented x3 Resp: Effort & Inspection: normal respiratory effort Auscultation: clear to auscultation bilaterally Cardio: Rate: regular rate GI: Inspection: non-distended and incision (covered w/ clean mepilex) GI Palp: No abdominal tenderness and Yes Soft to palpation Auscultation: normal bowel sounds : Other: fundus firm Skin: General skin exam: normal color Neuro: General: patient oriented x3 Extrem: General: normal to inspection Psych: Appearance: grossly normal Affect: normal affect Attitude: cooperative DS: Data Data Completed and Pending Labs on day of discharge: Labs from last 24 hours 08/02/23 05:13 WBC 11.4 H RBC 3.40 L Hgb 11.2 L Hct 32.7 L MCV 96.2 MCH 32.9 MCHC 34.3 RDW 13.2 Plt Count 192 MPV 9.2 Immature Gran % (Auto) 0.8 H Neut % (Auto) 68.8 Lymph % (Auto) 21.6 [place] % (Auto) 7.6 Eos % (Auto) 0.9 Baso % (Auto) 0.3 Lymph # (Auto) 2.47 [place] # (Auto) 0.9 H Eos # (Auto) 0.1 Baso # (Auto) 0.0 Abs Immat Gran (auto) 0.09 H Absolute Neuts (auto) 7.9 H Absolute Nucleated RBC 0.0 Nucleated RBC % 0.0 Sodium 128 L Potassium 3.7 Chloride 101 Carbon Dioxide 22 Anion Gap 5 L BUN 9 Creatinine 0.60 L Estim Creat Clear Calc 159 Estimated GFR > 60 Glucose 116 H Calcium 8.7 Total Bilirubin 0.3 AST 34 ALT 23 Alkaline Phosphatase 89 Total Protein 6.0 L Albumin 3.1 L Discharge Plan Discharge Attending physician on discharge: Felicity Hogan Discharging Clinician: Jane Mujica Anticipated Discharge Date/Time: 08/04/23 08:00 Patient Disposition: Home, Self-Care Activity: may shower, may drive after 2 weeks and pelvic rest Diet: regular Wound Care Instructions: follow printed instructions Discharge Instructions: Education: Mom and Baby Guide Given to: Mother Follow-Up: Call your delivering provider's office for an appointment to be seen in: 1 Week Mom and baby should come to the [facility] for the follow-up appointment. Appointment Date/Time: August 05, 2023 at 10:00 am What to expect at your follow-up visit: Blood Pressure Check Call [phone] if you are unable to keep your appointment time. BREAST CARE: * Wear a snug supportive bra. * For engorgement discomfort: Breast Feeding: * Apply warm moist washcloths * Express milk as needed to relieve engorgement * Wear loose clothing Bottle Feeding: * May apply ice packs * For sore nipples: * Identify correct latch-on
[2023-08-02] MEDS: SIMETHICONE 80 MG TAB.CHEW PO (19:13)
[2023-08-02 20:00] VITALS: BP 135/92; PULSE 96; RESP 18; TEMP 37.4; O2SAT 97
[2023-08-03] MEDS: HYDROcodone/acetaminophen (*CRX) 10-325 MG TABLET 1 TAB PO ×4 (00:03→17:12)
[2023-08-03] MEDS: IBUPROFEN 600 MG TABLET PO ×3 (04:54→20:27)
--- NOTE | 2023-08-03 09:45 | PC.NURSE ---
PT introductions made and plan of care discussed per post op c section, pain management, daily care activities and breast feeding. pumping and supplementing. PT and spouse both recipients of such care and no barriers to learning identified at this time this shift. PT received such instructions per one to one discussion, mom baby care guide and demonstrations. PT verbalized understanding of such care.
[2023-08-03 09:52] VITALS: PULSE 88
[2023-08-03] MEDS: LABETALOL HCL 100 MG TABLET 200 MG PO ×2 (09:52→20:25)
[2023-08-03] MEDS: MULTIVIT/MIN/PREN/FOL AC/IRON TABLET 1 TAB PO (09:52)
[2023-08-03] MEDS: DOCUSATE SODIUM 100 MG CAPSULE PO ×2 (09:53→17:12)
[2023-08-03] MEDS: HYDROXYCHLOROQUINE SULFATE 200 MG TABLET PO ×2 (09:54→17:12)
[2023-08-03] MEDS: LANOLIN (LANSINOH) 7.5 GM CREAM 1 APPLIC TOPICAL (09:57)
[2023-08-03 10:00] VITALS: BP 149/96; PULSE 107; RESP 18; TEMP 36.9; O2SAT 99
--- NOTE | 2023-08-03 11:09 | PM.OBPNVD ---
OB - PN: Subj Subjective Date/time seen: 08/03/23 11:09 Patient comments: no complaints and pain well controlled baby status: doing well OB - PN: Obj Data Labs 08/02/23 05:13 08/02/23 05:13 OB - PN A/P Plan day: 1 Plan: routine care Time Spent With Patient Time: Total time spent is greater than 50% in coordination of care (as documented) at patient's floor/unit and/or counseling patient: Exam Narrative: bandage intact fundus firm nt
[2023-08-03] MEDS: SIMETHICONE 80 MG TAB.CHEW PO ×2 (13:11→17:13)
[2023-08-03] MEDS: HYDROcodone/acetaminophen (*CRX) 5-325 MG TABLET 1 TAB PO ×2 (13:12→20:25)
[2023-08-03 17:00] VITALS: BP 144/86; PULSE 93; RESP 16; TEMP 36.9; O2SAT 100
[2023-08-03 20:00] VITALS: BP 132/78; PULSE 98; RESP 18; TEMP 36.8; O2SAT 100
[2023-08-03] MEDS: ARIPiprazole 5 MG TABLET PO (20:24)
[2023-08-03 20:25] VITALS: PULSE 98
[2023-08-03] MEDS: SERTRALINE HCL 50 MG TABLET PO (20:25)
[2023-08-04] MEDS: HYDROcodone/acetaminophen (*CRX) 5-325 MG TABLET 1 TAB PO ×3 (01:36→11:57)
[2023-08-04] MEDS: IBUPROFEN 600 MG TABLET PO ×2 (04:29→11:58)
--- NOTE | 2023-08-04 07:00 | PC.NURSE ---
PT introductions made and plan of care discussed per post op c section, pain management, daily care activities and breast feeding. pumping and supplementing and pending discharge to home. PT and spouse both recipients of such care and no barriers to learning identified at this time. PT received such instructions per one to one discussion, mom baby care guide and demonstrations this shift. PT verbalized understanding of such care.
[2023-08-04 09:00] VITALS: BP 141/86; PULSE 99; RESP 18; TEMP 36.8; O2SAT 100; O2SAT 18
[2023-08-04] MEDS: SIMETHICONE 80 MG TAB.CHEW PO (09:10)
[2023-08-04] MEDS: HYDROcodone/acetaminophen (*CRX) 10-325 MG TABLET 1 TAB PO (09:10)
[2023-08-04 09:11] VITALS: PULSE 96
[2023-08-04] MEDS: LABETALOL HCL 100 MG TABLET 200 MG PO (09:11)
[2023-08-04] MEDS: MULTIVIT/MIN/PREN/FOL AC/IRON TABLET 1 TAB PO (09:12)
[2023-08-04] MEDS: DOCUSATE SODIUM 100 MG CAPSULE PO (09:12)
[2023-08-04] MEDS: HYDROXYCHLOROQUINE SULFATE 200 MG TABLET PO (09:13)
--- NOTE | 2023-08-04 10:10 | P.PNOB_ITS ---
OB - PN: Subj Subjective Date/time seen: 08/04/23 0920 Interval history: POD 3 from primary LTCS. Doing well. Urinating without difficulty. Denies passing any large clots. Denies dizziness with ambulating. Tolerating po food and fluids. Bonding with . Breast pumping and hand expressing but not getting output at this time. Patient comments: pain well controlled baby status: doing well and bottle feeding well feeding status: pumping and bottle feeding OB - PN: Obj Data Labs 08/02/23 05:13 08/02/23 05:13 OB - PN A/P Assessment and Plan (1) S/P section: Code(s): Z98.891 - History of uterine scar from previous surgery Status: Acute (2) Chronic hypertension affecting : Code(s): O10.919 - Unspecified pre-existing hypertension complicating , unspeci fied trimester Status: Acute (3) History of bilateral breast reduction surgery: Code(s): Z98.890 - Other specified postprocedural states Status: Acute Plan day: 3 Plan: discharge home Time Spent With Patient Time: Total time spent is greater than 50% in coordination of care (as documented) at patient's floor/unit and/or counseling patient: Time with patient: 15 - 25 minutes Review of Systems Review of Systems: All systems reviewed & are unremarkable except as noted in HPI and below Exam Const: General: cooperative, no acute distress and awake Orientation/consciousness: patient oriented x3 Limitations: no limitations Resp: Effort & Inspection: normal respiratory effort and able to speak in complete sentences Auscultation: clear to auscultation bilaterally Cardio: Rate: regular rate Peripheral pulses: Peripheral pulses 2+ throughout GI: Inspection: normal to inspection Auscultation: normal bowel sounds : General: Yes bladder normal to palpation Bimanual exam- vagina & uterus: bladder normal to palpation OB/external & speculum: vaginal bleeding (small) Other: Fundus firm Skin: General skin exam: normal color Other: Incision Neuro: General: patient oriented x3 Cognition (Neuro): normal cognition Speech: normal speech Extrem: General: normal to inspection Right lower extremity: edema Details: pitting and 2+ Left lower extremity: edema Details: pitting and 2+ Psych: Appearance: grossly normal Mental Status: mental status grossly normal Speech and movement: Normal speech and movement present Affect: normal affect Attitude: cooperative Thought process: Normal thought process present
--- NOTE | 2023-08-04 11:30 | PC.NURSE ---
Patient viewed the discharge video Mother & Baby Care, The First Two Weeks . Patient was given the opportunity and encouraged to ask questions. Patient verbalized understanding of information shared and has been given the mother/baby guide for home reference. Discharge instructions provided per protocol and questions answered
--- NOTE | 2023-08-04 12:05 | PC.NURSE ---
PT discharged to home ambulatory accompanied by spouse and and taken to waiting car. Follow up appts confirmed
[2023-08-05 10:45] VITALS: BP 139/89; PULSE 93; RESP 18; TEMP 36.6; O2SAT 99
== END 2023-08-04 12:05 | disposition home or self-care (01) | DRG 787 ==
LOC: ANHLDR 07-31 08:07 → ANHOB2 08-01 15:23
PROVIDERS: Admitting Provider Obstetrics & Gynecology; PCP Internal Medicine; Visit Provider Obstetrics & Gynecology
PROC: 10D00Z1 Extraction of Products of Conception, Low, Open Approach (ICD-10-PCS; CPT 59514; principal; 2023-08-01 10:30)
DX: O62.1 Secondary uterine inertia (principal); O10.92 Unspecified pre-existing hypertension complicating childbirth; O99.354 Diseases of the nervous system complicating childbirth; O99.824 Streptococcus B carrier state complicating childbirth; O69.81X0 Labor and delivery complicated by cord around neck, without compression, not applicable or unspecified; O36.63X0 Maternal care for excessive fetal growth, third trimester, not applicable or unspecified; O99.344 Other mental disorders complicating childbirth; F90.9 Attention-deficit hyperactivity disorder, unspecified type; Z3A.37 37 weeks gestation of pregnancy; Z37.0 Single live birth; M06.9 Rheumatoid arthritis, unspecified; M35.00 Sjogren syndrome, unspecified; Z90.49 Acquired absence of other specified parts of digestive tract; Z87.891 Personal history of nicotine dependence
CPT/HCPCS: 36415; 80053; 80202; 85025; 86592; 86850; 86900; 86901; 88307; A9270; J1580; J2270; J2274; J2405; J2590; J2795; J3370; J7120

== ENCOUNTER 2024-05-15 11:15 | Outpatient (CLI) | payer OTHER, SELFPAY ==
--- NOTE | ~2024-05-15 | MM_ITS ---
EXAMINATION: MM screening adilia BI w corry HISTORY: Screening TECHNIQUE: Craniocaudal and mediolateral oblique 3-D tomosynthesis images were obtained and synthetic 2-D images were generated. CAD analysis was submitted and interpreted. COMPARISON: No prior studies for comparison. BREAST PARENCHYMAL COMPOSITION: Not dense: There are scattered areas of fibroglandular density. FINDINGS: There is no evidence of suspicious mass, calcification, or architectural distortion to sugg est malignancy in either breast. There has been no suspicious interval change. IMPRESSION: 1. No mammographic evidence of malignancy. 2. Recommend routine screening mammography in one year. BI-RADS Category 1: Negative Reviewed, dictated and finalized at location B.
== END 2024-05-15 11:16 ==
LOC: MICIMG 11:16
PROVIDERS: PCP Internal Medicine; Visit Provider Obstetrics & Gynecology
DX: Z12.31 Encounter for screening mammogram for malignant neoplasm of breast (principal)
CPT/HCPCS: 77063; 77067

== ENCOUNTER 2024-11-27 16:30 | Emergency (ER) | payer OTHER, SELFPAY ==
[2024-11-27 16:41] VITALS: BP 146/87; PULSE 98; RESP 16; TEMP 36.9; O2SAT 99
--- NOTE | 2024-11-27 16:56 | ED_ITS ---
HPI - General Adult General Chief complaint: Skin/Abscess/Foreign Body Stated complaint: spots on face History of Present Illness HPI narrative: Sarah Cowan is a 38 y/o female who presents with reports of having a rash to her face that started about 2 weeks ago to her left lower face area near her mouth, she states it is kind of itchy / honey crusts drainage and stated to spread to her chin No systemic symptoms Related Data Home Medications ?Medication ?Instructions ?Recorded ?Confirmed ?Last Taken ?Type hydroxychloroquine 200 mg tablet 200 mg PO BID 03/24/21 11/27/24 07/29/23 History (Plaquenil) trazodone 50 mg tablet 50 mg PO QHS PRN Sleep 01/08/23 11/27/24 07/30/23 History adalimumab 40 mg/0.8 mL See Rx Instructions subcut .COMPLEX 03/26/23 11/27/24 07/27/23 History subcutaneous syringe kit (Humira) sertraline 50 mg tablet (Zoloft) 50 mg PO DAILY 04/24/23 11/27/24 07/29/23 History aripiprazole 10 mg tablet 10 mg PO DAILY 11/27/24 11/27/24 Unknown History viloxazine 200 mg capsule,extended 400 mg PO DAILY 11/27/24 11/27/24 Unknown History release 24 hr (Qelbree) Allergies Allergy/AdvReac Type Severity Reaction Status Date / Time amoxicillin Allergy Intermediate Hives Verified 11/27/24 16:42 Review of Systems Review of Systems: All systems reviewed & are unremarkable except as noted in HPI and below PMFSH Past Medical History Medical History Sjogren syndrome with inflammatory arthritis Rheumatoid arthritis Suppression of menses HTN (hypertension) Surgical History Surgical History S/P section 08/01/2023 Hx of breast reduction, elective History of cholecystectomy History of ankle surgery Family History Family History Other Unknown family medical history Social History Social History Social History: Patient uses alcohol occasionally, smokes pack cigarettes every 2 days. uses MJ occasionally. Smoking status: Former smoker Tobacco type: cigarettes Alcohol intake: current Substance use: never Substance use type: marijuana Do You Feel Safe in your Home?: Yes Lack of Transportation: No Lack of Food: Never True Current Housing: I Have Housing Concerned About Future Housing: No Difficulty Paying Gas/Electric Bills: No Difficulty Paying for Meds: No Currently Unemployed: No Education: Master's Degree or Higher Difficulty w/ Childcare or Family Care: No Living arrangements: with family Occupation/Education: occupation Gender identity (if verbalized by the patient): Female Sexual Orientation (if Verbalized by the Patient): Straight or Heterosexual Spiritual care concerns: No Exam Narrative: GENERAL: Well-appearing, well-nourished, and in no acute distress. HEAD: Normocephalic, atraumatic. EYES: PERRLA and EOMI. ENT: Nares clear, no rhinorrhea or epistaxis. Mucous membranes moist. Oropharynx without tonsillar hypertrophy exudate or other lesions. Bilateral TMs pearly ng nonbulging NECK: Supple. No adenopathy or masses. No carotid bruits or JVD CHEST: Clear to auscultation. No respiratory distress. No wheezes rales or rhonchi HEART: Regular rate and rhythm. No murmur heard. Normal peripheral pulses. ABDOMEN: Soft, nontender, nondistended, normal active bowel sounds. EXTREMITIES: Normal range of motion. No edema. SKIN: + honey crusts lesion to left lower chin area and under chin NEURO: No focal deficits. Alert and oriented x3. PSYCH: Normal mood and affect. Course Course Level of Care: Express Care Visit Vital Signs Vital signs: Vital Signs Temperature 36.9 C 11/27/24 16:41 Pulse Rate 98 11/27/24 16:41 Respiratory Rate 16 11/27/24 16:41 Blood Pressure 146/87 H 11/27/24 16:41 Pulse Oximetry 99 11/27/24 16:41 Oxygen Delivery Room Air 11/27/24 16:41 Temperature 36.9 C 11/27/24 16:41 Pulse Rate 98 11/27/24 16:41 Respiratory Rate 16 11/27/24 16:41 Blood Pressure 146/87 H 11/27/24 16:41 Pulse Oximetry 99 11/27/24 16:41 Oxygen Delivery Room Air 11/27/24 16:41 Medical Decision Making MDM Narrative Medical decision making narrative: 38 y/o with complaints of rash to her face that is itchy and kind of painful to her face for two weeks + honey crusts lesion to left lower chin area and under chin No fever or systemic symptoms exam and hx consistent with Impetigo WIll start her on Mupirocin TID for 5 days Close PCP follow up Return precautions discussed Medical Records Medical records reviewed: Yes I reviewed the external patient's medical records. Vital Signs Vital Signs: Vital Signs Temperature 36.9 C 11/27/24 16:41 Pulse Rate 98 11/27/24 16:41 Respiratory Rate 16 11/27/24 16:41 Blood Pressure 146/87 H 11/27/24 16:41 Pulse Oximetry 99 11/27/24 16:41 Oxygen Delivery Room Air 11/27/24 16:41 Temperature 36.9 C 11/27/24 16:41 Pulse Rate 98 11/27/24 16:41 Respiratory Rate 16 11/27/24 16:41 Blood Pressure 146/87 H 11/27/24 16:41 Pulse Oximetry 99 11/27/24 16:41 Oxygen Delivery Room Air 11/27/24 16:41 Vitals reviewed by me Discharge Plan Discharge Clinical Impression: Impetigo Patient Disposition: Home, Self-Care Condition: Stable Instructions: Antibiotic Form Additional Instructions: Start using the topical ointment Mupirocin three times a day for 5 days Follow up with your PCP to ensure this is improving If you develop any worsening symptoms or concerns return for evaluation Patient Language: Faroese Prescriptions: New mupirocin [Centany] 2 % ointment 1 applic topical TID Qty: 22 1RF Rx Instructions: use three times a day for 5 days No Action aripiprazole 10 mg tablet 10 mg PO DAILY [place]el[place]ree 200 mg capsule,extended release 24hr 400 mg PO DAILY hydroxychloroquine [Plaquenil] 200 mg tablet 200 mg PO BID Humira 40 mg/0.8 mL syringe kit See Rx Instructions subcut .COMPLEX Rx Instructions: inject one - 40 mg/0.8 mL syringe every 2 weeks subcut trazodone 50 mg tablet 50 mg PO QHS PRN (Reason: Sleep) sertraline [Zoloft] 50 mg tablet 50 mg PO DAILY labetalol 200 mg tablet See Rx Instructions .ROUTE .COMPLEX Qty: 180 0RF Dose Instruction: 200 MG ORALLY EVERY 12 HOURS Rx Instructions: 200 MG ORALLY EVERY 12 HOURS Follow-up/Referrals: Debo,MD Lucina [Primary Care Provider] - 1 Week Time of Disposition: 17:02
== END 2024-11-27 17:07 | disposition home or self-care (01) ==
PROVIDERS: Emergency Provider Nurse Practitioner Family; PCP Internal Medicine
DX: L01.00 Impetigo, unspecified (principal); I10 Essential (primary) hypertension; M06.9 Rheumatoid arthritis, unspecified; Z87.891 Personal history of nicotine dependence; Z79.899 Other long term (current) drug therapy
CPT/HCPCS: 99213; G0463

== ENCOUNTER 2025-02-17 11:31 | Outpatient (CLI) | payer OTHER, SELFPAY ==
--- OUTSIDE RECORDS SUMMARY | 2025-02-17 11:34 | XMS_ITS | Referral Summary ---
Author Organization [facility] [address] [facility] Address [address] [place] [id number] Care Team Providers Care Food Management Aide Name Role Phone Ghulam STOKES MD, Donnie. [facility] [phone] Lucina Edmondson MD Primary Care Provider [phone] Encounters Date Type Department Care Team Description 02/16/2025 Results Follow-Up [facility] Minimally Invasive Surgery [address] [place] [address] Medical [address] [place] [phone] Jeffrey Mccall NP 02/02/2025 8:20 AM CDT Telemedicine [facility] Invasive Surgery [address] [place] [address] Medical Office Building [address] [place] [phone] Jeffrey Mccall NP Bariatric surgery status (Primary Dx); Other specified intestinal malabsorption; BMI 39.0-39.9,adult 12/16/2024 Telephone [facility] Minimally Invasive Surgery [address] [place] [address] Advanced [facility] 12th Floor, [place] [address] Jeffrey Mccall NP Medical Question/Miscellaneo us from Last 3 Months Allergies Active Allergy Reactions Criticality Noted Date Comments Amoxicillin Hives,Urticaria Medium 05/31/2020 Medications traZODone (DESYREL) 50 mg tablet Take 1 tablet (50 mg total) by mouth nightly 10/21/19 24 Active sertraline (ZOLOFT) 50 mg tablet Take 1 tablet (50 mg total) by mouth nightly Active semaglutide (Wegovy) 0.25 mg/0.5 mL auto-injector Inject 4 mL (2 mg total) under the skin once a week Saturdays02/18/20 24 Active labetaloL (NORMODYNE,TRAND ATE) 100 mg tablet Take 1 tablet (100 mg total) by mouth 2 (two) times a day 02/12/20 24 Active ferrous sulfate 325 mg (65 mg of elemental iron) tablet Take 1 tablet (325 mg total) by mouth daily Start post-surgery. Take with food and avoid taking within 2 hours of calcium 90 tablet 3 05/27/20 24 Active calcium citrate-vitamin D3 200 mg-6.25 mcg (250 unit) tablet Take 2 tablets by mouth 3 (three) times a day Start post-surgery 540 tablet 3 05/27/20 24 025 Active multivitamin with minerals tablet Take 2 tablets by mouth daily Start taking post surgery 60 tablet 11 05/27/20 24 025 Active gabapentin (NEURONTIN) 300 mg capsule Take 1 capsule (300 mg total) by mouth daily 06/09/20 24 Active ARIPiprazole (ABILIFY) 10 mg tablet TAKE 1 TABLET BY MOUTH EVERY DAY AT BEDTIME FOR 90 DAYS 07/24/20 24 Active adalimumab-ryvk 40 mg/0.4 mL auto-injector, kit INJECT 40 MG (0.4 ML) UNDER THE SKIN EVERY 14 DAYS 2 each 3 11/23/19 25 Active losartan (COZAAR) 50 mg tablet Take 1 tablet (50 mg total) by mouth daily 01/27/20 25 Active Qelbree 200 mg capsule,extended release 24hr Take 1 capsule (200 mg total) by mouth every morning 025 Discontinued cyanocobalamin (Vitamin B-12) 500 mcg tablet Take 1 tablet (500 mcg total) by mouth daily Start post Surgery 90 tablet 3 05/27/20 24 025 Discontinued ondansetron (ZOFRAN) 4 mg tablet Take 1 tablet (4 mg total) by mouth every 8 (eight) hours as needed for nausea or vomiting Start post-surgery 20 tablet 2 05/27/20 24 025 Discontinued omeprazole (PriLOSEC) 20 mg capsule Take 1 capsule (20 mg total) by mouth 2 (two) times a day START POST SURGERY 60 capsule 05/27/20 025 Discontinued ergocalciferol (VITAMIN D) 50,000 unit capsule Take 1 capsule (50,000 Units total) by mouth once a week Saturdays04/15/20 025 Discontinued hyoscyamine (LEVSIN) 0.125 mg SL tabletIndication s:Urinary Incontinence Take 1 tablet (125 mcg total) by mouth every 6 (six) hours as needed for cramping for up to 10 doses 10 tablet 06/04/20 025 Discontinued oxyCODONE (ROXICODONE) 5 mg immediate release tabletIndication s:Pain Take 1 tablet (5 mg total) by mouth every 4 (four) hours as needed for pain for up to 10 doses 10 tablet 06/04/20 025 Discontinued hydroxychloroqui ne (PLAQUENIL) 200 mg tablet Take 2 tablets (400 mg total) by mouth daily 180 tablet 1 10/21/19 025 Discontinued Active Problems Problem Noted Date Diagnosed Date Status post bariatric surgery 09/02/2024 Morbid obesity 05/25/2024 Rheumatoid arthritis involvi ng multiple sites with positive rheumatoid factor 05/31/2020 Overview (12/20/2020): Labs AVISE: RICHARD 1:320 speckled, Ro52 106, Ro60 >1375, RF IgM 9.9, RF IgA 114 14.3.3 eta 1.0 Hepatitis negative Xrays CXR negative XR R foot negative XR L foot - small calcaneal enthesophyte XR hands negative Ultrasound 04/18/2020 US R hand/wrist: mild thickening/effusion wrist wtih grade 1 PD under the tendon. Mild 2nd PIP and moderate 3rd PIP thickening. Assessment & Plan (11/12/2024 1:03 PM PUBLIC ADDRESS SYSTEM MECHANIC): Cdai in remission. Appears stable without inflammatory sounding pain. Agree that it is reasonable to try discontinuing hydroxychloroquine and monitor off; discussed that it is possible it is helping more than we realize and she may experience a flare, which she acknowledged. Will stop hydroxychloroquine now and continue adalimumab every 2 weeks. Labs reviewed. Plan for follow up in 6 months to reassess or sooner as needed. Assessment & Plan (05/08/2024 1:10 PM CDT): Cdai in remission. Appears stable without inflammatory sounding pain. Will continue Humira every 2 weeks and hydroxychloroquine 400 mg daily. Labs reviewed. Plan for follow up in 6 months to reassess or sooner as needed. Assessment & Plan (11/08/2023 3:10 PM PUBLIC ADDRESS SYSTEM MECHANIC): Appears stable without inflammatory sounding pain and no synovitis. Will continue Humira every 2 weeks and hydroxychloroquine 400 mg daily. Labs today as below. Plan for follow up in 6 months to reassess or sooner as needed. Assessment & Plan (05/08/2023 4:35 PM CDT): Low cdai. Denies inflammatory sounding pain. Will continue Humira every 2 weeks and hydroxychloroquine 400 mg daily. Request recent labs. Plan for follow up in 6 months to reassess or sooner as needed. Assessment & Plan (11/07/2022 3:38 PM PUBLIC ADDRESS SYSTEM MECHANIC): Denies inflammatory sounding pain. Will continue Humira every 2 weeks and hydroxychloroquine 400 mg daily. Labs as below. Plan for follow up in 6 months to reassess or sooner as needed. Assessment & Plan (05/31/2022 1:46 PM CDT): Low cdai with no tender joints in her hands and lessening synovitis. Overall she does appear to be improving with Humira. Lower suspicion that the symptoms she reported are 2/2 Humira, she is agreeable to continuing Humira and monitoring those symptoms. Continue hydroxychloroquine 400 mg daily. Labs as below. Plan for follow up in 3 months to reassess or sooner as needed. Assessment & Plan (03/21/2022 3:44 PM CDT): Moderate cdai. We had previously discussed adding Xeljanz after US in March 2021 showed increased synovial thickening; however, subsequent to this both her symptoms and exam improved and she felt stable on current regimen. Returned flaring at last visit, noted significant benefit with prednisone. Now off leflunomide due to planning; she completed 2 week course cholestyramine washout. Failed azathioprine due to nausea. Based upon planning, checked benefits for Cimzia but this was denied. Ronn approved, provided sample today and reviewed the injection process, pt feels confident administering at home as she has done other injections. She will have her present for at least 30 minutes after the first dose. Continue hydroxychloroquine 400 mg daily. Plan for follow up in 8 weeks to reassess or sooner as needed. Assessment & Plan (01/22/2022 3:55 PM CDT): Moderate cdai. We had previously discussed adding Xeljanz after US in March 2021 showed increased synovial thickening; however, subsequent to this both her symptoms and exam improved and she felt stable on current regimen. Returned flaring at last visit, noted significant benefit with prednisone. Now off leflunomide due to planning; she completed 2 week course cholestyramine washout. Failed azathioprine due to nausea. Based upon planning, will check benefits for Cimzia which does not cross the placenta. Continue hydroxychloroquine 400 mg daily. Plan for follow up in 8 weeks to reassess or sooner as needed. Assessment & Plan (12/20/2021 3:25 PM CDT): cdai increased from 2 to 17 since last visit. We had previously discussed adding Xeljanz after US in March 2021 showed increased synovial thickening; however, subsequent to this both her symptoms and exam improved and she felt stable on current regimen. Based upon increase in symptoms and exam findings, discussed that we could consider a short course of low dose prednisone, pt wished to try this. Will Rx prednisone 10 mg daily x7d then 5 mg daily x7d then stop. Continue leflunomide 20 mg daily with hydroxychloroquine 400 mg daily. If synovitis persists, then will revisit the idea of escalating therapy. 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 Plan for follow up in 6 weeks to reassess or sooner as needed. Assessment & Plan (09/20/2021 3:11 PM PUBLIC ADDRESS SYSTEM MECHANIC): cdai in remission. No indication for escalating treatment. Will continue leflunomide 20 mg daily with hydroxychloroquine 400 mg daily. Plan for follow up in 3 months to reassess or sooner as needed. Assessment & Plan (03/21/2021 2:59 PM CDT): Moderate cdai. In the last few months has had increasing B hand pain, though at least some of this pain sounds more mechanical. She does have increased synovitis by exam today. [facility]al[facility], ultimately deemed to be a poor option due to supply issues and suspicion of GI intolerance. At this time will obtain repeat hand ultrasound to reassess disease activity and to help direct further treatment decisions. Labs today as below. Continue leflunomide 20 mg daily with hydroxychloroquine 400 mg daily. Will call pt with ultrasound findings and recommendations. Plan for follow up in ~8 weeks to reassess or sooner as needed. Assessment & Plan (12/20/2020 3:08 PM CDT): Low cdai. In the last month has had recurrence of B hand pain though by exam today has swelling only in her R wrist and denies any tenderness. She questioned increasing the dose of leflunomide, discussed that 20 mg daily is the max dose. She does not feel that a different dmard or a biologic is indicated, and I agree based upon her cdai. Given her good response to Aleve which she tolerates without AE, will try taking this daily for the next two weeks and if feeling improved then may try decreasing once again to every other day or prn. Will recheck labs today and continue leflunomide 20 mg daily with hydroxychloroquine 400 mg daily. She will call if symptoms persist/worsen despite Aleve, otherwise will plan for follow up in 3 months to reassess or sooner as needed. Assessment & Plan (09/20/2020 4:22 PM PUBLIC ADDRESS SYSTEM MECHANIC): Low cdai. Overall notes improvement in her joint complaints since starting leflunomide. Will recheck labs today and continue leflunomide 20 mg daily with hydroxychloroquine 400 mg daily and allow more time for effect. Reports having had labs through her PCP this morning, will request results. Plan for follow up in 3 months to reassess or sooner as needed. Assessment & Plan (06/28/2020 3:29 PM CDT): Low cdai. Overall notes improvement in her joint complaints since starting leflunomide. Will recheck labs today and continue leflunomide 20 mg daily with hydroxychloroquine 400 mg daily and allow more time for effect. Plan for follow up in 3 months to reassess or sooner as needed. Assessment & Plan (05/31/2020 3:08 PM CDT): Low cdai. Overall notes improvement in her joint complaints since starting leflunomide 10 mg daily. Will recheck labs today and increase leflunomide to 20 mg daily. Plan for follow up in 4 weeks to reassess or sooner as needed. Encounter for medication monitoring 05/31/2020 Assessment & Plan (11/11/2024 12:51 PM PUBLIC ADDRESS SYSTEM MECHANIC): Hepatitis negative 2019 Tspot negative 06/2021 Continue routine lab monitoring Maintain routine eye exams throughout the duration of taking hydroxychloroquine, up to date Assessment & Plan (05/08/2024 1:10 PM CDT): Hepatitis negative 2019 Tspot negative 06/2021 Continue routine lab monitoring Maintain routine eye exams throughout the duration of taking hydroxychloroquine, up to date Assessment & Plan (11/08/2023 3:11 PM PUBLIC ADDRESS SYSTEM MECHANIC): Hepatitis negative 2019 Tspot negative 06/2021 Continue routine lab monitoring Maintain routine eye exams throughout the duration of taking hydroxychloroquine, up to date, request note Assessment & Plan (05/08/2023 2:36 PM CDT): Hepatitis negative 2019 Tspot negative 06/2021 Continue routine lab monitoring Maintain routine eye exams throughout the duration of taking hydroxychloroquine Assessment & Plan (11/07/2022 3:45 PM PUBLIC ADDRESS SYSTEM MECHANIC): Hepatitis negative 2020 Tspot negative 06/2021 Continue routine lab monitoring Maintain routine eye exams throughout the duration of taking hydroxychloroquine Assessment & Plan (05/31/2022 9:05 AM CDT): Hepatitis negative 2020 Continue routine lab monitoring Maintain routine eye exams throughout the duration of taking hydroxychloroquine Assessment & Plan (03/21/2022 2:29 PM CDT): Hepatitis negative 2020 Continue routine lab monitoring Maintain routine eye exams throughout the duration of taking hydroxychloroquine Assessment & Plan (01/22/2022 1:16 PM CDT): Hepatitis negative 2020 Continue routine lab monitoring Maintain routine eye exams throughout the duration of taking hydroxychloroquine Assessment & Plan (12/20/2021 2:16 PM CDT): Hepatitis negative 2020 Continue routine lab monitoring Maintain routine eye exams throughout the duration of taking hydroxychloroquine Assessment & Plan (09/20/2021 11:48 AM PUBLIC ADDRESS SYSTEM MECHANIC): Hepatitis negative 2020 Continue routine lab monitoring Maintain routine eye exams throughout the duration of taking hydroxychloroquine Assessment & Plan (03/20/2021 3:11 PM CDT): Hepatitis negative 2020 Continue routine lab monitoring Maintain routine eye exams throughout the duration of taking hydroxychloroquine Assessment & Plan (12/20/2020 11:03 AM CDT): Hepatitis negative 2020 Continue routine lab monitoring Maintain routine eye exams throughout the duration of taking hydroxychloroquine Assessment & Plan (09/20/2020 8:27 AM PUBLIC ADDRESS SYSTEM MECHANIC): Hepatitis negative 2020 Continue routine lab monitoring Maintain routine eye exams throughout the duration of taking hydroxychloroquine Assessment & Plan (06/28/2020 10:19 AM CDT): Hepatitis negative 2020 Continue routine lab monitoring Maintain routine eye exams throughout the duration of taking hydroxychloroquine Assessment & Plan (05/31/2020 11:27 AM CDT): Hepatitis negative 2019 Continue routine lab monitoring Maintain routine eye exams throughout the duration of taking hydroxychloroquine Undifferentiated connective tissue disease 04/14 Overview (11/07/2022): Labs AVISE: RICHARD 1:320 speckled, Ro52 106, Ro60 >1375, RF IgM 9.9, RF IgA 114 14.3.3 eta 1.0 Hepatitis negative Xrays CXR negative XR R foot negative XR L foot - small calcaneal enthesophyte XR hands negative Ultrasound 04/18/2020 US R hand/wrist: mild thickening/effusion wrist wtih grade 1 PD under the tendon. Mild 2nd PIP and moderate 3rd PIP thickening. Previously diagnosed with UCTD treated with hydroxychloroquine 400 mg daily since 2013. She has had improvement in many of her initial symptoms including malar erythema, photosensitive rashes, oral ulcerations, and fevers. She continues to experience joint pain, stiffness, fatigue, sicca symptoms, cough, and LAST. Overall she has many symptoms consistent with a CTD such as lupus. Our workup showed RICHARD 1:320 speckled, Ro52 106, Ro60 >1375, RF IgM 9.9, RF IgA 114, 14.3.3 eta 1.0, unremarkable xrays, and ultrasound with only mild changes. With her RF and 14.3.3 eta, discussed that there is consideration for overlap with RA. Assessment & Plan (11/11/2024 12:51 PM PUBLIC ADDRESS SYSTEM MECHANIC): As above. Assessment & Plan (05/08/2024 12:30 PM CDT): As above. Assessment & Plan (11/08/2023 1:23 PM PUBLIC ADDRESS SYSTEM MECHANIC): As above. Assessment & Plan (05/08/2023 2:36 PM CDT): As above. Assessment & Plan (11/07/2022 12:24 PM PUBLIC ADDRESS SYSTEM MECHANIC): As above. Assessment & Plan (05/31/2022 9:05 AM CDT): As above. Assessment & Plan (03/21/2022 3:43 PM CDT): As above. Assessment & Plan (01/22/2022 1:16 PM CDT): RICHARD 1:320 speckled, Ro52 106, Ro60 >1375, RF IgM 9.9, RF IgA 114, 14.3.3 eta 1.0, unremarkable xrays, and ultrasound with only mild changes. Continue hydroxychloroquine and leflunomide as above. Assessment & Plan (12/20/2021 2:15 PM CDT): RICHARD 1:320 speckled, Ro52 106, Ro60 >1375, RF IgM 9.9, RF IgA 114, 14.3.3 eta 1.0, unremarkable xrays, and ultrasound with only mild changes. Continue hydroxychloroquine and leflunomide as above. Assessment & Plan (09/20/2021 3:11 PM PUBLIC ADDRESS SYSTEM MECHANIC): RICHARD 1:320 speckled, Ro52 106, Ro60 >1375, RF IgM 9.9, RF IgA 114, 14.3.3 eta 1.0, unremarkable xrays, and ultrasound with only mild changes. Continue hydroxychloroquine and leflunomide as above. Assessment & Plan (03/21/2021 3:00 PM CDT): RICHARD 1:320 speckled, Ro52 106, Ro60 >1375, RF IgM 9.9, RF IgA 114, 14.3.3 eta 1.0, unremarkable xrays, and ultrasound with only mild changes. Repeat US and continue hydroxychloroquine and leflunomide as above. Assessment & Plan (12/20/2020 11:03 AM CDT): RICHARD 1:320 speckled, Ro52 106, Ro60 >1375, RF IgM 9.9, RF IgA 114, 14.3.3 eta 1.0, unremarkable xrays, and ultrasound with only mild changes. Continue hydroxychloroquine and leflunomide as above. Assessment & Plan (09/20/2020 4:22 PM PUBLIC ADDRESS SYSTEM MECHANIC): RICHARD 1:320 speckled, Ro52 106, Ro60 >1375, RF IgM 9.9, RF IgA 114, 14.3.3 eta 1.0, unremarkable xrays, and ultrasound with only mild changes. Continue hydroxychloroquine and leflunomide as above. Assessment & Plan (06/28/2020 10:19 AM CDT): Previously diagnosed with UCTD treated with hydroxychloroquine 400 mg daily since 2013. She has had improvement in many of her initial symptoms including malar erythema, photosensitive rashes, oral ulcerations, and fevers. She continues to experience joint pain, stiffness, fatigue, sicca symptoms, cough, and LAST. Overall she has many symptoms consistent with a CTD such as lupus. Our workup showed RICHARD 1:320 speckled, Ro52 106, Ro60 >1375, RF IgM 9.9, RF IgA 114, 14.3.3 eta 1.0, unremarkable xrays, and ultrasound with only mild changes. With her RF and 14.3.3 eta, discussed that there is consideration for overlap with RA. Continue hydroxychloroquine and leflunomide as above. Assessment & Plan (05/31/2020 3:08 PM CDT): Previously diagnosed with UCTD treated with hydroxychloroquine 400 mg daily since 2013. She has had improvement in many of her initial symptoms including malar erythema, photosensitive rashes, oral ulcerations, and fevers. She continues to experience joint pain, stiffness, fatigue, sicca symptoms, cough, and LAST. Overall she has many symptoms consistent with a CTD such as lupus. Our workup showed RICHARD 1:320 speckled, Ro52 106, Ro60 >1375, RF IgM 9.9, RF IgA 114, 14.3.3 eta 1.0, unremarkable xrays, and ultrasound with only mild changes. With her RF and 14.3.3 eta, discussed that there is consideration for overlap with RA. Continue hydroxychloroquine and leflunomide as above. Assessment & Plan (04/26/2020 3:56 PM CDT): 34yoF previously diagnosed with UCTD treated with hydroxychloroquine 400 mg daily since ~2012. She has had improvement in many of her initial symptoms including malar erythema, photosensitive rashes, oral ulcerations, and fevers. She continues to experience joint pain, stiffness, fatigue, sicca symptoms, cough, and LAST. Overall she has many symptoms consistent with a CTD such as lupus. Her exam reveals questionable synovitis in a few joints as well as a few tender joints today. Our workup showed RICHARD 1:320 speckled, Ro52 106, Ro60 >1375, RF IgM 9.9, RF IgA 114, 14.3.3 eta 1.0, unremarkable xrays, and ultrasound with only mild changes. With her RF and 14.3.3 eta, discussed that there is consideration for possible overlap with RA. Based upon ongoing joint complaints and synovitis by exam, though ultrasound does not show significant inflammation, will initiate treatment with leflunomide 10 mg po daily. Reviewed potential adverse effects including diarrhea, nausea, and hair loss. Warned to watch for development of any rash and to stop taking and call should this occur. Reviewed need for routine lab monitoring throughout the duration of taking this medication, initially monthly and then quarterly as long as they remain on the medication. 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 Plan for follow up in 4 weeks to reassess or sooner as needed. Assessment & Plan (04/14/2020 3:51 PM CDT): 34yoF previously diagnosed with UCTD treated with hydroxychloroquine 400 mg daily since 2012. She has had improvement in many of her initial symptoms including malar erythema, photosensitive rashes, oral ulcerations, and fevers. She continues to experience joint pain, stiffness, fatigue, sicca symptoms, cough, and LAST. Overall she has many symptoms consistent with a CTD such as lupus. Her exam reveals questionable synovitis loyd few joints as well as a few tender joints today. To fully evaluate will check appropriate serologies, xrays, and ultrasound with plan for follow up in 2 weeks to review results. Will continue hydroxychloroquine 400 mg daily, reminded to maintain routine eye exams throughout the duration of taking this medication. LAST (dyspnea on exertion) 04/14/2020 Assessment & Plan (04/26/2020 3:54 PM CDT): Pt reports chronic cough and LAST which she has attributed to her smoking history (1/2 ppd x 18-20 years). Based upon her h/o ctd, additional workup is warranted, cxr is unremarkable, await ECHO and PFTs. Assessment & Plan (04/14/2020 3:52 PM CDT): Pt reports chronic cough and LAST which she has attributed to her smoking history (1/2 ppd x 18-20 years). Based upon her h/o ctd, additional workup is warranted, will obtain CXR, ECHO, and PFTs. Resolved Problems Problem Noted Date Diagnosed Date Resolved Date Morbid (severe) obesity due to excess calories 06/02/2024 02/02/2025 BMI 50.0-59.9, adult 03/23/2024 024 Social History Tobacco Use Types Packs/Day Years Used Date Smoking Tobacco: Former Cigarettes Q uit: 08/07/2022 Passive Smoke Exposure: Past Smokeless Tobacco: Never Tobacco Cessation:Counseling Given: Not Answered AUDIT-C Answer Date Recorded Q1: How often do you have a drink containing alcohol? Never 09/02/2024 Q2: How many drinks containi ng alcohol do you have on a typical day when you are drinking? Patient does not drink Q3: How often do you have si x or more drinks on one occasion? Never 09/02/2024 Personal Safety Answer Date Recorded Have you ever been in or are you currently in a harmful physical or emotional relationship or is someone making you feel afraid or unsafe? Denies 06/02/2024 Comments No Sex and Gender Information Value Date Recorded Sex Assigned at Not on file Legal Sex Female 3:07 PM CDT Gender Identity Not on file Sexual Orientation Not on file Last Filed Vital Signs Vital Sign Reading Time Taken Comments Blood Pressure 144/90 11/12/2024 12:49 PM PUBLIC ADDRESS SYSTEM MECHANIC Pulse 109 11/12/2024 12:49 PM PUBLIC ADDRESS SYSTEM MECHANIC Temperature 36.8 C (98.2 F) 09/02/2024 9:30 AM PUBLIC ADDRESS SYSTEM MECHANIC Respiratory Rate 15 06/04/2024 11:58 AM CDT Oxygen Saturation 100% 11/12/2024 12:49 PM PUBLIC ADDRESS SYSTEM MECHANIC Inhaled Oxygen Concentration - - Weight 116.1 kg (256 lb) 11/12/2024 12:49 PM PUBLIC ADDRESS SYSTEM MECHANIC Height 167.6 cm (5' 6 ) 11/12/2024 12:49 PM PUBLIC ADDRESS SYSTEM MECHANIC Body Mass Index 41.32 11/12/2024 12:49 PM PUBLIC ADDRESS SYSTEM MECHANIC Plan of Treatment Not on file Medical Devices Implanted Type Area Regional Marketing Manager Device Identifier Shelf Expiration Date Model / Serial / Lot [employer] Biological Bariatric Peristrip Non Crosslinked Bovine Pericardium For Endo Rita Thin [id number] - [id number] Implanted:Qty: 1 on 06/02/2024 by Jose Medley MD at [facility] N/A: Stomach [employer] 01/24/2026 [id number] / / [id number] [employer] Bariatric Peristrip Non Crosslinked Bovine Pericardium For Endo Rita Thin [id number] - [id number] Implanted:Qty: 1 on 06/02/2024 by Jose Medley MD at [facility] N/A: Stomach [employer] 02/10/2026 [id number] / / [id number] [employer] Biological Bariatric Peristrip Non Crosslinked Bovine Pericardium For Endo Rita Thin [id number] - [id number] Implanted:Qty: 1 on 06/02/2024 by Jose Medley MD at [facility] N/A: Stomach [employer] 09/25/2025 [id number] / / [id number] Procedures Procedure Name Priority Date/Time Associated Diagnosis Comments VITAMIN B1 Routine 02/11/2025 11:53 AM CDT Bariatric surgery status Other specified intestinal malabsorption BMI 39.0-39.9,adult IRON PROFILE W/ IBC Routine 02/11/2025 1 1:53 AM CDT Bariatric surgery status Other specified intestinal malabsorption BMI 39.0-39.9,adult FOLATE Routine 02/11/2025 11:53 AM CDT Bariatric surgery status Other specified intestinal malabsorption BMI 39.0-39.9,adult FERRITIN Routine 02/11/2025 11:53 AM CDT Bariatric surgery status Other specified intestinal malabsorption BMI 39.0-39.9,adult COPPER, SERUM Routine 02/11/2025 11:53 AM CDT Bariatric surgery status Other specified intestinal malabsorption BMI 39.0-39.9,adult HEPATITIS C ANTIBODY Routine 04/14/2020 3:09 PM CDT Polyarthralgia Encounter for screening for other viral diseases from Last 3 Months or Most Recently Relevant to Health Maintenance Results * Iron profile w/ IBC (02/11/2025 11:53 AM CDT) Iron 119 40 - 190 mcg/dL [facility] TIBC 366 250 - 450 mcg/dL (calc) [facility] Iron saturation 33 16 - 45 % (calc) [facility] Blood 02/11/2025 11:5 3 AM CDT 02/11/2025 11:54 AM CDT Narrative [facility] - 02/15/2025 9:05 PM CDT FASTING:NO FASTING: NO us Jeffrey Mccall ORNAMENTER LAB BLOOD ORDERABLES Final Result [facility] [address] [place] [address] * Copper, serum (02/11/2025 11:53 AM CDT) Copper 101 70 - 175 mcg/dL [facility] Comment: (Note) This test was developed and its analytical performance characteristics have been determined by [facility]. It has not been cleared or approved by the FDA. This assay has been validated pursuant to the CLIA regulations and is used for clinical purposes. [facility] [address] [address],[address] [place] [address] Daphne Adrian MD, PhD Blood 02/11/2025 11:5 3 AM CDT 02/11/2025 11:54 AM CDT Narrative [facility] - 02/15/2025 9:05 PM CDT FASTING:NO FASTING: NO Jeffrey Mccall ORNAMENTER LAB BLOOD ORDERABLES Final Result Performing Organization Address [facility] Co de Phone Number [facility] [address] [place] [address], [address] [place] [phone] * Vitamin B1 (02/11/2025 11:53 AM CDT) [facility] Thiamine (Vit B1) 139 78 - 185 nmol/L [facility] Comment: (Note) Vitamin supplementation within 24 hours prior to blood draw may affect the accuracy of the results. This test was developed and its analytical performance characteristics have been determined by [facility]. It has not been cleared or approved by FDA. This assay has been validated pursuant to the CLIA regulations and is used for clinical purposes. [facility] [address] [place] [address],[address] [place] [address] Daphne Adrian MD, PhD Blood 02/11/2025 11:5 3 AM CDT 02/11/2025 11:54 AM CDT Narrative [facility] - 02/15/2025 9:05 PM CDT FASTING:NO FASTING: NO Jeffrey Mccall ORNAMENTER LAB BLOOD ORDERABLES Final Result Performing Organization Address [facility]/ZIP Co de Phone Number [facility] [address] [place] [address], [address] [place] [phone] * Folate (02/11/2025 11:53 AM CDT) [facility] Folate, Serum 20.3 ng/mL [facility] Comment: Reference Range Low: <3.4 Borderline: 3.4-5.4 Normal: >5.4 Blood 02/11/2025 11:5 3 AM CDT 02/11/2025 11:54 AM CDT Narrative [facility] - 02/15/2025 9:05 PM CDT FASTING:NO FASTING: NO Jeffrey Mccall NP LAB BLOOD ORDERABLES Final Result Performing Organization Address [facility] de Phone Number [facility] [address] [place] [address] * Ferritin (02/11/2025 11:53 AM CDT) Pathologist [facility] Ferritin 37 16 - 232 ng/mL [facility] Blood 02/11/2025 11:5 3 AM CDT 02/11/2025 11:54 AM CDT Narrative [facility] - 02/15/2025 9:05 PM CDT FASTING:NO FASTING: NO Jeffrey Mccall NP LAB BLOOD ORDERABLES Final Result Performing Organization Address [facility] de Phone Number [facility] [address] [place] [address] * Hepatitis C antibody (04/14/2020 3:09 PM CDT) [facility] Hep C Ab NON-REACTI VE NON-REACT ROLAND [facility] SIGNAL TO CUT-OFF 0.09 <1.00 [facility] Comment: HCV antibody was non-reactive. There is no laboratory evidence of HCV infection. In most cases, no further action is required. However, if recent HCV exposure is suspected, a test for HCV RNA (test code 17424) is suggested. For additional information please refer to http://education.Surfingbird.Cannae/faq/ETW63w0 (This link is being provided for informational/ educational purposes only.) Blood specimen (specimen) 04/14/2020 3:09 PM CDT 04/14/2020 3:10 PM CDT Pattie GARCIA LAB MICROBIOLOGY - GENERA L ORDERABLES Final Result Performing Organization Address [facility] de Phone Number [facility] [address] [address] [place] [phone] from Last 3 Months or Most Recently Relevant to Health Maintenance [facility]NA CIGNA Advance Directives For more information, please contact: [phone] * Full Code (Latest Code Status on File) Date Activated Date Inactivated Comments 06/02/2024 11:20 AM 06/04/2024 6:42 PM Care Teams Food Management Aide Relationship Specialty Start Date End Date Lucina Edmondson MD [address] [place] [address] PCP - General Internal Medicine 12/20/21 Jose Parmar III, [place] [id number]|2025-02-17 11:35:00|2025-02-17 11:34:00|XMS_ITS|BKG DAEMON|External Medical Summaries|[id number]|" Encounter Summary Created on: February 17, 2025 Sarah Cowan : 1985 Sex: Female Author Organization [facility] Address [address] [place] [address] Care Team Providers Care Food Management Aide Name Role Phone Lucina Edmondson MD Primary Care Provider [phone] Encounter Details Date Type Department Care Team (Late st Contact Info) Description 03/13/2022 [facility] [address] [place] [address] Lucina Edmondson MD [address] [place] [address] [address] [place], [place] [id number] Humira Social History Tobacco Use Types Packs/Day Years Used Date Smoking Tobacco: Former Cigarettes Q uit: 10/2001 Smokeless Tobacco: Never Comments:counseled by Dr Dalila morales Alcohol Use Standard Drinks/Week Comments Not Currently 0 (1 standard drink = 0.6 oz pur e alcohol) PHQ-2 Answer Date Recorded PHQ-2 Score - If the patient scores above 3, please move on to questions 3-9 0 01/31/2022 Comments No Sex and Gender Information Value Date Recorded Sex Assigned at Female 12/29/2024 3:02 PM CDT Legal Sex Female 10:33 PM CDT Gender Identity Female 12/29/2024 3:02 PM CDT Sexual Orientation Straight 12/29/2024 3: 02 PM CDT documented as of this encounter Plan of Treatment Upcoming Encounters Date Type Department Care Team (Late st Contact Info) Description 04/23/2025 9:40 AM CDT Office [facility] Multispecialty [facility] - [address] [place] [address] Lucina Edmondson MD [address] [facility] [address] [place] [address] 07/14/2025 11:20 AM CDT Office Visit [facility] [place] [address] [place] [address] [address] [place] [address] Jose Covington MD [address] [address] documented as of this encounter Visit Diagnoses Not on filedocumented in this encounter Additional Health Concerns Infection Onset Date Last Indicated Resolved Time COVID-19 Rule Out 12/14/2022 12/14/2022 12/14/2022 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
--- OUTSIDE RECORDS SUMMARY | 2025-02-17 11:34 | XMS_ITS | Encounter Summary ---
Author Organization [facility] Address [address] [place] [address] Care Team Providers Care Steam Conditioner Filling Name Role Phone Lucina Edmondson MD Primary Care Provider [phone] Encounter Details Date Type Department Care Team (Late st Contact Info) Description 10/27/2024 [employer] Message [facility] [address] [place] [address] [employer] Provider Patient Amendment Request Social History Tobacco Use Types Packs/Day Years Used Date Smoking Tobacco: Former Cigarettes Q uit: 10/07/2001 Smokeless Tobacco: Never Comments:counseled by Dr Dalila morales Alcohol Use Standard Drinks/Week Comments Yes 0 (1 standard drink = 0.6 oz pure alcohol) 3x a week, approx 3 glasses of wine PHQ-2 Answer Date Recorded Patient Health Questionnaire-2 Score 0 10/23/2024 Comments No Sex and Gender Information Value [...] Description 04/23/2025 9:40 AM CDT Office Visit [facility] Multispecialty Care - [address] [address] [address] [place] [address] Lucina Edmondson MD [address] [place] [address] 157 [place] [address] 07/14/2025 11:20 AM CDT Office Visit [facility] - [address] [address] Jose Covington MD [address] [place] [address] documented as of this encounter Visit Diagnoses Not on filedocumented in this encounter Additional Health Concerns Assessment Noted Time PHQ-9 Depression Total Score: 5 10/23/19 25 11:02 AM 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
--- OUTSIDE RECORDS SUMMARY | 2025-02-17 11:34 | XMS_ITS | Encounter Summary ---
Author Organization [facility] Address [address] [place] [address] Care Team Providers Care Nursing Tech Name Role Phone Lucina Edmondson MD Primary Care Provider [phone] Encounter Details Date Type Department Care Team (Late st Contact Info) Description 01/16/2024 MyChart Message Enc [address] [address] [address] [place] [address] Lucina Edmondson MD [address] [place] [address] [address] [place] [address] Ozempic Social History Tobacco Use Types Packs/Day Years Used Date Smoking Tobacco: Former Cigarettes Q uit: 10/07/2001 Smokeless Tobacco: Never Comments:counseled by Dr Dalila morales Alcohol Use Standard Drinks/Week Comments Not Currently 0 (1 standard drink = 0.6 oz pur e alcohol) PHQ-2 Answer Date Recorded Patient Health Questionnaire-2 Score 0 01/08/2024 Comments No Sex and Gender Information Value [...] Description 04/23/2025 9:40 AM CDT [facility] [address] [place] [address] Lucina Edmondson MD [address] [address] 07/14/2025 11:20 AM CDT Office Visit [facility] - [address] [address] Jose Covington MD [address] [place] [address] documented as of this encounter Visit Diagnoses Not on filedocumented in this encounter Additional Health Concerns Assessment Noted Time PHQ-9 Depression Total Score: 1 01/08/20 24 3:04 PM CDT documented as of this encounter Care Teams Nursing Tech Relationship Specialty Start Date End Date Lucina Edmondson MD [address] [place] [address] PCP - General INTERNAL MEDICINE 07/19/21 documented as of this encounter
--- OUTSIDE RECORDS SUMMARY | 2025-02-17 11:34 | XMS_ITS | Encounter Summary ---
Author Organization [facility] Address [address] [place] [address] Care Team Providers Care Cutting Department Supervisor Name Role Phone Lucina Edmondson MD Primary Care Provider [phone] Encounter Details Date Type Department Care Team (Latest Contact Info) Description 02/16/2022 MyChart Message Enc [facility] Mult[facility]ty Care - [place] [address] [place] [address] [address] [place] [address] [place] [address] [place] [address] [place], [place] [phone] [facility]. Social History Tobacco Use Types Packs/Day Years [...] Orientation Straight 12/29/2024 3: 02 PM CDT COVID-19 Exposure Response Date Recorded In the last 10 days, have yo u been in contact with someone who was confirmed or suspected to have Coronavirus/COVID-19? No / Unsure 01/30/2022 10:38 AM CDT documented as of this encounter Plan of Treatment Upcoming Encounters Date Type Department Care Team (Late st Contact Info) Description 04/23/2025 9:40 AM CDT Office Visit [facility] Multispecialty Care - [address] [address] [address] [place] [address] Lucina Edmondson MD [address] [address] 07/14/2025 11:20 AM CDT Office Visit [facility] - [address] [address] Jose Covington MD [address] [address] documented as of this encounter Visit Diagnoses Not on filedocumented in this encounter Additional Health Concerns Infection Onset Date Last Indicated Resolved Time COVID-19 Rule Out 12/14/2022 12/14/2022 12/14/2022 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
--- OUTSIDE RECORDS SUMMARY | 2025-02-17 11:34 | XMS_ITS | Encounter Summary ---
Author Organization [facility] Address [address] [place] [address] Care Team Providers Care Outside Machinist Supervisor Name Role Phone Lucina Edmondson MD Primary Care Provider [phone] Encounter Details Date Type Department Care Team (Late st Contact Info) Description 04/10/2024 MyChart Message Enc [address] [address] [address] [place] [address] Lucina Edmondson MD [facility]7 [facility] 157 [place] [address] tests Social History Tobacco Use Types Packs/Day Years [...] Description 04/23/2025 9:40 AM CDT [facility] [place] [address] Lucina Edmondson MD [facility] [address] 07/14/2025 11:20 AM CDT Office Visit [facility] - [address] [address] Jose Covington MD [address] [place] [address] documented as of this encounter Visit Diagnoses Not on filedocumented in this encounter Additional Health Concerns Assessment Noted Time PHQ-9 Depression Total Score: 1 01/08/20 24 3:04 PM CDT documented as of this encounter Care Teams Outside Machinist Supervisor Relationship Specialty Start Date End Date Lucina Edmondson MD [address] [place] [address] PCP - General INTERNAL MEDICINE 07/19/21 documented as of this encounter
--- OUTSIDE RECORDS SUMMARY | 2025-02-17 11:34 | XMS_ITS | Clinical Summary ---
Author Organization [facility] [address] [facility] Address [address] [place] [address] Care Team Providers Care Practice Coordinator Name Role Phone Ghulam STOKES MD, [facility] [phone] Lucina Edmondson MD Primary Care Provider [phone] Allergies Active Allergy Reactions Criticality Noted Date [...] of calcium 90 tablet 3 05/27/20 24 025 Active calcium citrate-vitamin D3 200 mg-6.25 mcg [...] day START POST SURGERY 60 capsule 05/27/20 24 025 Discontinued ergocalciferol (VITAMIN D) 50,000 unit capsule Take 1 capsule (50,000 Units total) by mouth once a week Saturdays04/15/20 24 025 Discontinued hyoscyamine (LEVSIN) 0.125 mg SL tabletIndication s:Urinary Incontinence Take 1 tablet (125 mcg total) by mouth every 6 (six) hours as needed for cramping for up to 10 doses 10 tablet 06/04/20 24 025 Discontinued oxyCODONE (ROXICODONE) 5 mg immediate release tabletIndication s:Pain Take 1 tablet (5 mg total) by mouth every 4 (four) hours as needed for pain for up to 10 doses 10 tablet 06/04/20 24 025 Discontinued hydroxychloroqui ne (PLAQUENIL) 200 mg tablet Take 2 tablets (400 mg total) by mouth daily 180 tablet 1 10/21/19 25 025 Discontinued Active Problems Problem Noted Date [...] thickening. Assessment & Plan (11/12/2024 1:03 PM MACHINE PULLER OVER): Cdai in remission. Appears stable without inflammatory [...] needed. Assessment & Plan (11/08/2023 3:10 PM MACHINE PULLER OVER): Appears stable without inflammatory sounding pain and [...] needed. Assessment & Plan (11/07/2022 3:38 PM MACHINE PULLER OVER): Denies inflammatory sounding pain. Will continue Humira [...] benefits for Cimzia but this was denied. Humira approved, provided sample today and reviewed the [...] plans to discuss this again with her pocketbook maker and will update us after. Plan for follow up in 6 weeks to reassess or sooner as needed. Assessment & Plan (09/20/2021 3:11 PM MACHINE PULLER OVER): cdai in remission. No indication for escalating [...] needed. Assessment & Plan (09/20/2020 4:22 PM MACHINE PULLER OVER): Low cdai. Overall notes improvement in her [...] 05/31/2020 Assessment & Plan (11/11/2024 12:51 PM MACHINE PULLER OVER): Hepatitis negative 2020 Tspot negative 06/2021 Continue routine lab monitoring Maintain routine eye exams throughout the duration of taking hydroxychloroquine, up to date Assessment & Plan (05/08/2024 1:10 PM CDT): Hepatitis negative 2019 Tspot negative 06/2021 Continue routine lab monitoring Maintain routine eye exams throughout the duration of taking hydroxychloroquine, up to date Assessment & Plan (11/08/2023 3:11 PM MACHINE PULLER OVER): Hepatitis negative 2019 Tspot negative 06/2021 Continue routine lab monitoring Maintain routine eye exams throughout the duration of taking hydroxychloroquine, up to date, request note Assessment & Plan (05/08/2023 2:36 PM CDT): Hepatitis negative 2019 Tspot negative 06/2021 Continue routine lab monitoring Maintain routine eye exams throughout the duration of taking hydroxychloroquine Assessment & Plan (11/07/2022 3:45 PM MACHINE PULLER OVER): Hepatitis negative 2019 Tspot negative 06/2021 Continue routine lab monitoring Maintain routine eye exams throughout the duration of taking hydroxychloroquine Assessment & Plan (05/31/2022 9:05 AM CDT): Hepatitis negative 2019 Continue routine lab monitoring Maintain routine eye exams throughout the duration of taking hydroxychloroquine Assessment & Plan (03/21/2022 2:29 PM CDT): Hepatitis negative 2020 Continue routine lab monitoring Maintain routine eye exams throughout the duration of taking hydroxychloroquine Assessment & Plan (01/22/2022 1:16 PM CDT): Hepatitis negative 2019 Continue routine lab monitoring Maintain routine eye exams throughout the duration of taking hydroxychloroquine Assessment & Plan (12/20/2021 2:16 PM CDT): Hepatitis negative 2020 Continue routine lab monitoring Maintain routine eye exams throughout the duration of taking hydroxychloroquine Assessment & Plan (09/20/2021 11:48 AM MACHINE PULLER OVER): Hepatitis negative 2020 Continue routine lab monitoring [...] hydroxychloroquine Assessment & Plan (09/20/2020 8:27 AM MACHINE PULLER OVER): Hepatitis negative 2020 Continue routine lab monitoring Maintain routine eye exams throughout the duration of taking hydroxychloroquine Assessment & Plan (06/28/2020 10:19 AM CDT): Hepatitis negative 2020 Continue routine lab monitoring Maintain routine eye exams throughout the duration of taking hydroxychloroquine Assessment & Plan (05/31/2020 11:27 AM CDT): Hepatitis negative 2020 Continue routine [...] RA. Assessment & Plan (11/11/2024 12:51 PM MACHINE PULLER OVER): As above. Assessment & Plan (05/08/2024 12:30 PM CDT): As above. Assessment & Plan (11/08/2023 1:23 PM MACHINE PULLER OVER): As above. Assessment & Plan (05/08/2023 2:36 PM CDT): As above. Assessment & Plan (11/07/2022 12:24 PM MACHINE PULLER OVER): As above. Assessment & Plan (05/31/2022 9:05 [...] above. Assessment & Plan (09/20/2021 3:11 PM MACHINE PULLER OVER): RICHARD 1:320 speckled, Ro52 106, Ro60 >1375, [...] above. Assessment & Plan (09/20/2020 4:22 PM MACHINE PULLER OVER): RICHARD 1:320 speckled, Ro52 106, Ro60 >1375, [...] 06/02/2024 02/02/2025 BMI 50.0-59.9, adult 03/23/2024 024 Encounters Date Type Department Care Team Description 02/16/2025 Results Follow-Up [facility] Minimally Invasive Surgery [address] [place] [address] Medical Office Building [address] [place] [address] Jeffrey Mccall NP 02/02/2025 8:20 AM CDT Telemedicine [facility] Minimally Invasive Surgery [address] [facility] Medical Office Building [address] [place] [phone] Jeffrey Mccall NP Bariatric surgery status (Primary Dx); Other specified intestinal malabsorption; BMI 39.0-39.9,adult 12/16/[address] [facility] [address] [place] [address] 12th Floor, [place] [phone] Jeffrey Mccall NP Medical Question/Miscellaneo us from Last 3 Months Surgical History Surgery Date Site/Laterality Comments COLONOSCOPY 2018 CHOLECYSTECTOMY 2013 ANKLE SURGERY 10/07/2002 - 10/06/2003 REDUCTION MAMMAPLASTY Medical History Medical History Date Comments Arthritis 2012 Depression 2005 Hypertension 2021 Morbid obesity (HCC) 2005 Sleep apnea 2019 PONV (postoperative nausea and vomiting) Family History Medical History Relation Name Comments Anesthesia problems Neg Hx Social History Tobacco Use Types Packs/Day Years [...] on file Sexual Orientation Not on file Obstetrics History Last Filed Vital Signs Vital Sign Reading Time Taken Comments Blood Pressure 144/90 11/12/2024 12:49 PM MACHINE PULLER OVER Pulse 109 11/12/2024 12:49 PM MACHINE PULLER OVER Temperature 36.8 C (98.2 F) 09/02/2024 9:30 AM MACHINE PULLER OVER Respiratory Rate 15 06/04/2024 11:58 AM CDT Oxygen Saturation 100% 11/12/2024 12:49 PM MACHINE PULLER OVER Inhaled Oxygen Concentration - - Weight 116.1 kg (256 lb) 11/12/2024 12:49 PM MACHINE PULLER OVER Height 167.6 cm (5' 6 ) 11/12/2024 12:49 PM MACHINE PULLER OVER Body Mass Index 41.32 11/12/2024 12:49 PM MACHINE PULLER OVER Plan of Treatment Health Maintenance Due Date Last Done Comments Breast Cancer Screening-Mammogram 1985 Depression Screening 1985 Hepatitis B Screening 12/17/2001 Regular Well Visit/Exam 18-64 12/17/2001 Varicella Vaccines (1 of 2 - 13+ 2-dose series) 10/21/2007 Cervical Cancer Screening 12/06/2022 12/06/2021, DTaP/Tdap/Td Vaccine (4 - Td or Tdap) 05/29/2033 05/29/2023, 07/19/2021, 02/08/2012, Additional history exists HPV Vaccines Completed 11/17/2007, 04/06, 12/06/2006 Hepatitis C Screening Completed 04/14/2020 Pneumococcal vaccine <65 Aged Out 04/05/2021 No longer eligible based on patient's age to complete this topic Influenza Vaccine Completed 08/05/2024, , 07/25/2023, Additional history exists Medical Devices Implanted Type Area Lan Engineer Device Identifier Shelf Expiration Date Model / Serial / Lot [employer] Biological Bariatric Peristrip Non Crosslinked Bovine Pericardium For Endo Rita Thin [id number] - [id number] Implanted:Qty: 1 on 06/02/2024 by Jose Medley MD at [facility] N/A: Stomach [employer] 01/24/2026 [id number] / / [id number] [employer] Biological Bariatric Peristrip Non Crosslinked Bovine Pericardium For Endo Rita Thin [id number] - [id number] Implanted:Qty: 1 on 06/02/2024 by Jose Medley MD at [facility] N/A: Stomach [employer] 02/10/2026 [id number] / / [id number] [employer] Biological Bariatric Peristrip Non Crosslinked Bovine Pericardium For Endo Rita Thin [id number] - [id number] Implanted:Qty: 1 on 06/02/2024 by Jose Medley MD at [facility] N/A: Stomach [employer] 09/25/2025 [id number] / / [id number] Procedures Procedure Name Priority Date/Time Associated Diagnosis [...] BLOOD ORDERABLES Final Result Performing Organization Address City/[facility]/ZIP Co de Phone Number [facility] [address] [place] [address] * Copper, serum (02/11/2025 11:53 AM CDT) Pathologist [facility] Copper 101 70 - 175 mcg/dL [facility] Comment: (Note) This test was developed and its analytical performance characteristics have been determined by [facility]. It has not been cleared or approved by the FDA. This assay has been validated pursuant to the CLIA regulations and is used for clinical purposes. [facility] [address] [address],[address] [facility] [address] Daphne Adrian MD, PhD Blood 02/11/2025 11:5 3 AM CDT 02/11/2025 11:54 AM CDT Narrative [facility] - 02/15/2025 9:05 PM CDT FASTING:NO FASTING: NO Jeffrey Mccall NP LAB BLOOD ORDERABLES Final Result Performing Organization Address City/[facility]/ZIP Co de Phone Number [facility] [address] [address], [address] [place] [address] * Vitamin B1 (02/11/2025 11:53 AM CDT) [facility] Thiamine (Vit B1) 139 78 - 185 nmol/L [facility] Comment: (Note) Vitamin supplementation within 24 hours prior to blood draw may affect the accuracy of the results. This test was developed and its analytical performance characteristics have been determined by [facility]. It has not been cleared or approved by FDA. This assay has been validated pursuant to the CLIA regulations and is used for clinical purposes. MD [facility] [address] [address],[address] [facility] [address] Daphne Adrian MD, PhD Blood 02/11/2025 11:5 3 AM CDT 02/11/2025 11:54 AM CDT Narrative [facility] - 02/15/2025 9:05 PM CDT FASTING:NO FASTING: NO Jeffrey Mccall NP LAB BLOOD ORDERABLES Final Result [facility] [address] [place] [address], [address] [place] [address] * Folate (02/11/2025 11:53 AM CDT) Folate, Serum 20.3 ng/mL [facility] Comment: Reference Range Low: <3.4 Borderline: 3.4-5.4 Normal: >5.4 Blood 02/11/2025 11:5 3 AM CDT 02/11/2025 11:54 AM CDT Narrative [facility] - 02/15/2025 9:05 PM CDT FASTING:NO FASTING: NO Jeffrey Mccall NP LAB BLOOD ORDERABLES Final Result [facility] [address] [place] [address] * Ferritin (02/11/2025 11:53 AM CDT) Ferritin 37 16 - 232 ng/mL [facility] Blood 02/11/2025 11:5 3 AM CDT 02/11/2025 11:54 AM CDT Narrative [facility] - 02/15/2025 9:05 PM CDT FASTING:NO FASTING: NO Jeffrey Mccall NP LAB BLOOD ORDERABLES Final Result Performing Organization Address [facility] Co de Phone Number [facility] [address] [place] [address] * Hepatitis C antibody (04/14/2020 3:09 PM CDT) Hep C Ab NON-REACTI VE NON-REACT ROLAND [facility] SIGNAL TO CUT-OFF 0.09 <1.00 [facility] Comment: HCV antibody was non-reactive. There is no laboratory evidence of HCV infection. In most cases, no further action is required. However, if recent HCV exposure is suspected, a test for HCV RNA (test code 22638) is suggested. For additional information please refer to http://education.Youjia/faq/DDZ43k5 (This link is being provided for informational/ educational purposes only.) Blood specimen (specimen) 04/14/2020 3:09 PM CDT 04/14/2020 3:10 PM CDT Pattie Cedeño PA LAB MICROBIOLOGY - GENERA L ORDERABLES Final Result Performing Organization Address [facility] Co de Phone Number [facility] [address] [place] [address] from Last 3 Months or Most Recently Relevant to Health Maintenance Insurance [employer] AETNA [facility] HMO Member Subscriber Plan / Payer (Ef fective 2019-Present) Name:Christina Cowan Relation to Subscriber:Spouse Name:UGO COWAN W Date of :1982 (Home) Address: [address] [place] [address] Payer ID:[id number] (NAIC) Type:AETNA HMO/PPO Address: [id number]|2025-02-17 11:34:00|2025-02-17 11:34:00|XMS_ITS|BKG DAEMON|External Medical Summaries|[phone]|" Patient Health Record Created on: February 17, 2025 CHRISTINA COWAN : 1985 Sex: Female Author Organization [facility] Address [address] [facility] [address] [place] [address] Care Team Providers Care Practice Coordinator Name Role Phone Debo MEDRANO, Lucina Primary Care Provider Unavailabl e Elissa Silva Unavailable [phone] Migration, Provider Unavailable Unavailable Allergies Allergen (clinical drug ingredient) Drug/Non Drug Allergy documented on EMR Reaction Allergy Type Onset Date Status amoxicillin Amoxicillin Unknown Drug Allergy 01/24/2024 Ac tive Reason For Referral No Information Medications Medication SIG (Take, Route, Frequency, Duration) Notes Start Date End Date Status Leflunomide 20 MG Oral 01/24/2024 N ot-Taking ARIPiprazole 10 MG 1 tablet at bedtime Oral at bedtime for 90 days Active HUMIRA(CF) PEN 40 MG/0.4 ML SUBCUTANEOUS KIT *Reorder from [facility] for eRx and Interaction Alerts* 01/24/2024 Active Labetalol HCl 100 MG 1 tablet Oral Twice a day 01/24/2024 Active Hydroxychloroquine Sulfate 200 MG Oral 01/24/2024 Active Ondansetron HCl 4 MG Oral 01/24/2024 Not-Taking VICTOZA 2-CARMELINA 0.6 mg/0.1 mL (18 mg/3 mL) Subcutaneous *Reorder from Amarin for eRx and Interaction Alerts* 01/24/2024 Not-Taking BD ULTRA-FINE PEN NEEDLE 31 gauge x 12/20 MISCELLANEOUS *Reorder from [facility]arin for eRx and Interaction Alerts* 01/24/2024 Not-Taking Carvedilol 25 MG Oral 01/24/2024 No t-Taking BD SHYAM 2ND GEN PEN NEEDLE 32 GAUGE X *Reorder from [employer] for eRx and Interaction Alerts* 01/24/2024 Not-Taking traZODone HCl 50 MG 1 tablet at bedtime Oral at bedtime for 90 days Active Sertraline HCl 50 MG 1 tablet Oral Once a day for 90 days Active Immunizations Vaccine Route Administration Date Status Comme nts Influenza virus vaccine, quadrivalent (IIV4), split virus, 0.25 mL dosage Unknown 06/07/2021 Administered Influenza, unspecified formulation Unknown 07/09/2022 A dministered Influenza, unspecified formulation Unknown 07/25/2023 A dministered Lenny Covid-19 Vaccine Unknown 12/09/2020 Administere d Pfizer [employer] Covid-19 Vac cine 2nd dose Unknown 06/22/2021 Administered Pfizer [employer] Covid-19 Vac cine 2nd dose Unknown 07/09/2022 Administered Pfizer-[employer]iontech Covid-19 Vac cine 1st dose Unknown 02/22/2022 Administered Social History Tobacco Use: Social History Observation Description Date Details (start date - stop date) Former Smoker NA - NA Sex Assigned At : Social History Observation Description Sex Assigned At Female Tobacco Control (Standard) Question Answer Notes Tobacco use: Former smoker How long has it been since you last smoked? 1-5 years AUDIT-C (Standard) Question Answer Notes Did you have a drink contain ing alcohol in the past year? Yes Points 3 Interpretation Negative How often did you have six o r more drinks on one occasion in the past year? Never (0 point) How many drinks did you have on a typical day when you were drinking in the past year? 1 or 2 drinks (0 point) How often did you have a dri nk containing alcohol in the past year? 2 to 3 times a week (3 points) Problems Problem Type SNOMED Code ICD Code Onset Dates Problem Status W/U Status Risk Notes Problem 69020015 Bipolar disorder , current episode hypomanic (F31.0) Active confirmed Problem Bipolar affective disorder, currently depressed, mild (590972591) Bipolar disorder, current episode depressed, mild (F31.31) 01/24/20 24 Active confirmed Problem Generalized anxiety disorder (51506152) Generalized anxiety disorder (F41.1) 01/24/20 24 Active confirmed Problem Insomnia disorder related to another mental disorder (42962503) Insomnia due to other mental disorder (F51.05) 01/24/20 24 Active confirmed Problem Attention deficit hyperactivity disorder, predominantly inattentive type (84289962) Attention-deficit hyperactivity disorder, predominantly inattentive type (F90.0) 01/24/20 24 Active confirmed Problem Screening for cardiovascular system disease (713099912) Encounter for screening for cardiovascular disorders (Z13.6) Active confirmed Problem Long-term current use of drug therapy (027000410) Other fci (current) drug therapy (Z79.899) 01/24/20 24 Active confirmed Problem Depression Screening (186152198) Encounter for screening for depression (Z13.31) Active confirmed Problem 99575170 Autism spectrum disorder (F84.0) Active confirmed Problem 616044779 Marijuana use (F12.90) Active confirmed Problem 791593611 Bipolar disorder with moderate depression (F31.32) Active confirmed Problem 14097660 Elevated blood pressure reading (R03.0) Active confirmed Problem 722939988 Bipolar depression (F31.9) Active confirmed Problem 798362896 Engages in vapin g (Z72.89) Active confirmed Vital Signs Heart Rate 93 /min 12/24/2024 Respiratory Rate 16 /min 07/31/2024 Height-cm 167.64 cm 12/24/2024 Blood pressure diastolic 83 mm Hg 12/24/2024 Weight-kg 112.04 kg 12/24/2024 Height 66.00 in 12/24/2024 Blood pressure systolic 133 mm Hg 12/24/2024 Weight 247.0 lbs 12/24/2024 BMI 39.86 kg/m2 12/24/2024 Encounters Encounter Location Date Provider Diagnosis [facility] [address] [facility] [address] [place] [address] 04/24/2024 Elissa Silva Bipolar disorder, current episode depressed, mild F31.31 ; Generalized anxiety disorder F41.1 ; Insomnia due to other mental disorder F51.05 ; Attention-deficit hyperactivity disorder, predominantly inattentive type F90.0 and Other keno terminal operator (current) drug therapy Z79.899 [facility] [place] [address] [facility] [address] [place] [address] 07/24/2024 Elissa Silva Generalized anxiety disorder F41.1 ; Bipolar disorder, current episode hypomanic F31.0 ; Insomnia due to other mental disorder F51.05 ; Attention-deficit hyperactivity disorder, predominantly inattentive type F90.0 ; Other keno terminal operator (current) drug therapy Z79.899 and Elevated blood pressure reading R03.0 [facility] [address] [facility] [address] [place] [address] 07/31/2024 Elissa Silva Generalized anxiety disorder F41.1 ; Bipolar disorder, current episode hypomanic F31.0 ; Insomnia due to other mental disorder F51.05 ; Attention-deficit hyperactivity disorder, predominantly inattentive type F90.0 ; Other keno terminal operator (current) drug therapy Z79.899 and Elevated blood pressure reading R03.0 [facility] [address] [facility] [address] [place] [address] 09/17/2024 Elissa Silva Generalized anxiety disorder F41.1 ; Bipolar disorder with moderate depression F31.32 ; Insomnia due to other mental disorder F51.05 ; Attention-deficit hyperactivity disorder, predominantly inattentive type F90.0 ; Other fci (current) drug therapy Z79.899 ; Elevated blood pressure reading R03.0 and Hypertension, unspecified type 401.[address] [address] 10/29/2024 Elissa Silva Generalized anxiety disorder F41.1 ; Bipolar disorder with moderate depression F31.32 ; Insomnia due to other mental disorder F51.05 ; Attention-deficit hyperactivity disorder, predominantly inattentive type F90.0 ; Other keno terminal operator (current) drug therapy Z79.899 ; Elevated blood pressure reading R03.0 ; Engages in vaping Z72.89 and Marijuana use F12.[address] [facility] [address] [place] [address] 12/24/2024 Elissa Silva Generalized anxiety disorder F41.1 ; Bipolar depression F31.9 ; Insomnia due to other mental disorder F51.05 ; Attention-deficit hyperactivity disorder, predominantly inattentive type F90.0 ; Other keno terminal operator (current) drug therapy Z79.899 ; Elevated blood pressure reading R03.0 ; Engages in vaping Z72.89 ; Marijuana use F12.90 ; Encounter for screening for depression Z13.31 ; Encounter for screening for cardiovascular disorders Z13.6 and Autism spectrum disorder F84.[address] [address] 02/22/2024 Provider Migration [address] [address] 02/23/2024 Provider Migration [address] [address] 09/15/2024 Elissa Silva [address] [address] 12/14/2024 Elissa Silva Assessments Encounter Date Diagnosis (ICD Code) Assessment Notes Treatment Notes Treatment Clinical Notes Section Notes 04/24/2024 Bipolar disorder, current episode depressed, mild (ICD-10 - F31.31) Bipolar Disorder: Care Instructions material was published, Learning About Long-Acting Injectable Antipsychotic Medicines material was published, Learning About Movement Disorders From Antipsychotic Medicines material was published, Learning About Mood Disorders material was published, Learning About How to Get Help During a Mental Health Crisis material was published 1. Depressed bipolar I disorder - Abilify 5 mg at bedtime will titrate as needed Sertraline 50 mg at nighteducated on medications monitor for alba reviewed PCP office note 01/24/24 plan on weight loss surgery in future, had labs done recently Baby boy 08/01/23 labs done PCP SSRI/SNRI side effects discussed including but not limited to, gastric upset, nausea, vomiting, diarrhea and/or constipation, weight changes, sexual side effects including loss of libido, increased suicidal thoughts/behaviors in children and young adults, and serotonin syndrome. Second generation antipsychotics (SGAs) have metabolic syndrome issues with weight gain, increase in prolactin, increased waist circumference, increased lipids, and increased glucose. Thus routine monitoring of weight, metabolic labs, etc. is indicated. A general rank ordering of antipsychotics that have the greatest to the least risk of metabolic effects is olanzapine, quetiapine, risperidone, ziprasidone, and aripiprazole. However, weight gain can occur with all of these drugs and considerable variability exists among patients receiving the same drug regarding the risk of metabolic effects. Anti-psychotic agents not only increase the risk of metabolic disorder, they also increase the risk of CVA, akathisia, and movement disorders including EPS or tardive dyskinesia (more common with first generation antipsychotics) and more. educated on all medications, benefits, side effects and risk, and educated on depression, anxiety, and ADHD, mood d/o and educated on compliance of medications, limit sugar intake, excise 30 minutes a day, and limit late night eating, metabolic and movement d/o educationappointme nt's, continue therapy discussion with patient about course of treatment and patient instructions. labs from RA provider therapy patient reported not needed at this time F31.31: Bipolar disorder, current episode depressed, mild aripiprazole 5 mg tablet - Take 1 tablet(s) every day by oral route at bedtime for 90 days. Qty: (90) tablet Refills: 0 Pharmacy: [facility] #[id number] sertraline 50 mg tablet - Take 1 tablet(s) every day by oral route at bedtime for 90 days. Qty: (90) tablet Refills: 0 Pharmacy: [facility] #[id number] 2. Generalized anxiety disorder -Sertraline F41.1: Generalized anxiety disorder 3. Insomnia disorder related to another mental disorder - Trazodone 50 mg at bedtime F51.05: Insomnia due to other mental disorder trazodone 50 mg tablet - TAKE 1 TABLET BY MOUTH EVERYDAY AT BEDTIME Qty: (90) tablet Refills: 0 Pharmacy: [facility] #[id number] 4. Attention deficit hyperactivity disorder, predominantly inattentive type -Qelbree 200 mg daily in am - improved ADHD on rx - samples given and co-pay cardeducated on rx HX strattera 80 mg daily in amIVA -2 reviewed F90.0: Attention-deficit hyperactivity disorder, predominantly inattentive type Qelbree 400 mg capsule,extended release - Take 2 capsule(s) every day by oral route in the morning for 30 days. Qty: (60) capsule Refills: 2 Pharmacy: [facility] #[id number] 5. Long-term drug therapy Z79.899: Other keno terminal operator (current) drug therapy Discussion Notes labs done PCP 04/24/2024 Generalized anxiety disorder (ICD-10 - F41.1) Generalized Anxiety Disorder: Care Instructions material was published, Learning About Generalized Anxiety Disorder material was published, Learning About Anxiety Disorders material was published 1. Depressed bipolar I disorder - Abilify 5 mg at bedtime will titrate as needed Sertraline 50 mg at nighteducated on medications monitor for alba reviewed PCP office note 01/24/24 plan on weight loss surgery in future, had labs done recently Baby boy 08/01/23 labs done PCP SSRI/SNRI side effects discussed including but not limited to, gastric upset, nausea, vomiting, diarrhea and/or constipation, weight changes, sexual side effects including loss of libido, increased suicidal thoughts/behaviors in children and young adults, and serotonin syndrome. Second generation antipsychotics (SGAs) have metabolic syndrome issues with weight gain, increase in prolactin, increased waist circumference, increased lipids, and increased glucose. Thus routine monitoring of weight, metabolic labs, etc. is indicated. A general rank ordering of antipsychotics that have the greatest to the least risk of metabolic effects is olanzapine, quetiapine, risperidone, ziprasidone, and aripiprazole. However, weight gain can occur with all of these drugs and considerable variability exists among patients receiving the same drug regarding the risk of metabolic effects. Anti-psychotic agents not only increase the risk of metabolic disorder, they also increase the risk of CVA, akathisia, and movement disorders including EPS or tardive dyskinesia (more common with first generation antipsychotics) and more. educated on all medications, benefits, side effects and risk, and educated on depression, anxiety, and ADHD, mood d/o and educated on compliance of medications, limit sugar intake, excise 30 minutes a day, and limit late night eating, metabolic and movement d/o educationappointme nt's, continue therapy discussion with patient about course of treatment and patient instructions. labs from RA provider therapy patient reported not needed at this time F31.31: Bipolar disorder, current episode depressed, mild aripiprazole 5 mg tablet - Take 1 tablet(s) every day by oral route at bedtime for 90 days. Qty: (90) tablet Refills: 0 Pharmacy: [facility] #[id number] sertraline 50 mg tablet - Take 1 tablet(s) every day by oral route at bedtime for 90 days. Qty: (90) tablet Refills: 0 Pharmacy: [facility] #[id number] 2. Generalized anxiety disorder -Sertraline F41.1: Generalized anxiety disorder 3. Insomnia disorder related to another mental disorder - Trazodone 50 mg at bedtime F51.05: Insomnia due to other mental disorder trazodone 50 mg tablet - TAKE 1 TABLET BY MOUTH EVERYDAY AT BEDTIME Qty: (90) tablet Refills: 0 Pharmacy: [facility] #[id number] 4. Attention deficit hyperactivity disorder, predominantly inattentive type -Qelbree 200 mg daily in am - improved ADHD on rx - samples given and co-pay cardeducated on rx HX strattera 80 mg daily in amIVA -2 reviewed F90.0: Attention-deficit hyperactivity disorder, predominantly inattentive type Qelbree 400 mg capsule,extended release - Take 2 capsule(s) every day by oral route in the morning for 30 days. Qty: (60) capsule Refills: 2 Pharmacy: [facility] #[id number] 5. Long-term drug therapy Z79.899: Other [facility]ci (current) drug therapy Discussion Notes labs done PCP 07/24/2024 Bipolar disorder, current episode hypomanic (ICD-10 - F31.0) 1. bipolar I disorder - currently in hypomania state Had recent gastric bypass 06/02/24 had depression after surgery now hypomania Increase Abilify 10 mg at bedtime will titrate as needed (just filled 5 mg dose - 90 pills- will take 2 tabs= 10 mg) Sertraline 50 mg at nighteducated on medications monitor for alba/hypomania Baby boy 08/01/23 labs done PCP SSRI/SNRI side effects discussed including but not limited to, gastric upset, nausea, vomiting, diarrhea and/or constipation, weight changes, sexual side effects including loss of libido, increased suicidal thoughts/behaviors in children and young adults, and serotonin syndrome. Second generation antipsychotics (SGAs) have metabolic syndrome issues with weight gain, increase in prolactin, increased waist circumference, increased lipids, and increased glucose. Thus routine monitoring of weight, metabolic labs, etc. is indicated. A general rank ordering of antipsychotics that have the greatest to the least risk of metabolic effects is olanzapine, quetiapine, risperidone, ziprasidone, and aripiprazole. However, weight gain can occur with all of these drugs and considerable variability exists among patients receiving the same drug regarding the risk of metabolic effects. Anti-psychotic agents not only increase the risk of metabolic disorder, they also increase the risk of CVA, akathisia, and movement disorders including EPS or tardive dyskinesia (more common with first generation antipsychotics) and more. educated on all medications, benefits, side effects and risk, and educated on depression, anxiety, and ADHD, mood d/o and educated on compliance of medications, limit sugar intake, excise 30 minutes a day, and limit late night eating, metabolic and movement d/o educationappointme nt's, continue therapy discussion with patient about course of treatment and patient instructions. labs from RA provider therapy patient reported not needed at this time 2. Generalized anxiety disorder -Sertraline 3. Insomnia disorder related to another mental disorder - Trazodone 50 mg at bedtime 4. Attention deficit hyperactivity disorder, predominantly inattentive type -Qelbree 400 mg daily in am - improved ADHD on rx - educated on rx TRENA-2 REVIEWED 5. Long-term drug therapy Discussion Notes labs done PCP 07/24/2024 Generalized anxiety disorder (ICD-10 - F41.1) Generalized Anxiety Disorder: Care Instructions material was published, Learning About Generalized Anxiety Disorder material was published, Learning About Anxiety Disorders material was published 1. bipolar I disorder - currently in hypomania state Had recent gastric bypass 06/02/24 had depression after surgery now hypomania Increase Abilify 10 mg at bedtime will titrate as needed (just filled 5 mg dose - 90 pills- will take 2 tabs= 10 mg) Sertraline 50 mg at nighteducated on medications monitor for alba/hypomania Baby boy 08/01/23 labs done PCP SSRI/SNRI side effects discussed including but not limited to, gastric upset, nausea, vomiting, diarrhea and/or constipation, weight changes, sexual side effects including loss of libido, increased suicidal thoughts/behaviors in children and young adults, and serotonin syndrome. Second generation antipsychotics (SGAs) have metabolic syndrome issues with weight gain, increase in prolactin, increased waist circumference, increased lipids, and increased glucose. Thus routine monitoring of weight, metabolic labs, etc. is indicated. A general rank ordering of antipsychotics that have the greatest to the least risk of metabolic effects is olanzapine, quetiapine, risperidone, ziprasidone, and aripiprazole. However, weight gain can occur with all of these drugs and considerable variability exists among patients receiving the same drug regarding the risk of metabolic effects. Anti-psychotic agents not only increase the risk of metabolic disorder, they also increase the risk of CVA, akathisia, and movement disorders including EPS or tardive dyskinesia (more common with first generation antipsychotics) and more. educated on all medications, benefits, side effects and risk, and educated on depression, anxiety, and ADHD, mood d/o and educated on compliance of medications, limit sugar intake, excise 30 minutes a day, and limit late night eating, metabolic and movement d/o educationappointme nt's, continue therapy discussion with patient about course of treatment and patient instructions. labs from RA provider therapy patient reported not needed at this time 2. Generalized anxiety disorder -Sertraline 3. Insomnia disorder related to another mental disorder - Trazodone 50 mg at bedtime 4. Attention deficit hyperactivity disorder, predominantly inattentive type -Qelbree 400 mg daily in am - improved ADHD on rx - educated on rx TRENA-2 REVIEWED 5. Long-term drug therapy Discussion Notes labs done PCP 07/31/2024 Generalized anxiety disorder (ICD-10 - F41.1) Generalized Anxiety Disorder: Care Instructions material was published, Learning About Generalized Anxiety Disorder material was published, Learning About Anxiety Disorders material was published 1. bipolar I disorder - currently in hypomania state Had recent gastric bypass 06/02/24 had depression after surgery now hypomania Abilify 10 mg at bedtime will titrate as needed Sertraline 50 mg at nighteducated on medications monitor for alba/hypomania Baby boy 08/01/23 labs done PCP SSRI/SNRI side effects discussed including but not limited to, gastric upset, nausea, vomiting, diarrhea and/or constipation, weight changes, sexual side effects including loss of libido, increased suicidal thoughts/behaviors in children and young adults, and serotonin syndrome. Second generation antipsychotics (SGAs) have metabolic syndrome issues with weight gain, increase in prolactin, increased waist circumference, increased lipids, and increased glucose. Thus routine monitoring of weight, metabolic labs, etc. is indicated. A general rank ordering of antipsychotics that have the greatest to the least risk of metabolic effects is olanzapine, quetiapine, risperidone, ziprasidone, and aripiprazole. However, weight gain can occur with all of these drugs and considerable variability exists among patients receiving the same drug regarding the risk of metabolic effects. Anti-psychotic agents not only increase the risk of metabolic disorder, they also increase the risk of CVA, akathisia, and movement disorders including EPS or tardive dyskinesia (more common with first generation antipsychotics) and more. educated on all medications, benefits, side effects and risk, and educated on depression, anxiety, and ADHD, mood d/o and educated on compliance of medications, limit sugar intake, excise 30 minutes a day, and limit late night eating, metabolic and movement d/o educationappointme nt's, continue therapy discussion with patient about course of treatment and patient instructions. labs from RA provider therapy patient reported not needed at this time 2. Generalized anxiety disorder -Sertraline 3. Insomnia disorder related to another mental disorder - Trazodone 50 mg at bedtime 4. Attention deficit hyperactivity disorder, predominantly inattentive type -Qelbree 400 mg daily in am - improved ADHD on rx - educated on rx TRENA-2 REVIEWED 5. Long-term drug therapy Discussion Notes labs done PCP NO REFILLS NEEDED TODAY 09/17/2024 Generalized anxiety disorder (ICD-10 - F41.1) Generalized Anxiety Disorder: Care Instructions material was published, Learning About Generalized Anxiety Disorder material was published, Learning About Anxiety Disorders material was published 1. bipolar I disorder - currently in depression state Had recent gastric bypass 06/02/24 had depression after surgery Abilify 10 mg at bedtime will titrate as needed Add Lamotrigine 25 mg daily for 2 weeks then increase Lamotrigine 50 mg daily discuss and educated on all rx Lamotrigine lamotrigine has a serious rashes requiring hospitalization and discontinue treatment including Jeramie Jake syndrome rare case of toxic epidermal necrolysis and cache related deaths. Incidence with adjunct of epilepsy treatment 0.8% in 2 to 16 years old and 0.3% in adults, bipolar and other mood disorders incidence 0.8% this initial monotherapy and 0.13% as adjunctive treatment. Other risk factor may include concomitant use of valproate acid derivative or exceeding initial lamotrigine does or does as clinician recommendation; most life-threatening rash of occurring first 2 to 8 week of treatment with isolated cases after prolonged treatment; though benign may occur, discontinue treatment at first sign of rash unless clearly not a drug related; TC treatment may not prevent trash from becoming life-threatening or permanently disabling or disfiguring. Comment reaction include, nausea/vomiting, dizziness/vertigo, visual disturbances, somnolence, ataxia, pruritus/rash, pharyngitis, headache, rhinitis, diarrhea, fever, asthenia, insomnia, tremor, abdominal pain, cough, accidental injury, constipation, dysmenorrhea, incoordination, anxiety, seizures, irritability, anorexia, xerostomia, and photosensitivity. Serious reactions include: Rash, severe; Abernathy Jake syndrome; toxic epidermal necrosis; injury edema, hypersensitivity reactions. Including fatal, multiple organ failure to safe fatal, rash with eosinophilia systemic symptoms, DIC, neutropenia, leukopenia, thrombocytopenia, pancytopenia, aplastic anemia, hemolytic anemia, i pancreatitis, hepatic failure, rhabdomyolysis, worsening of suicidal ideation, worsening of depression, cleft lip/palate [first trimester use] DO not Change Cosmetic, perfumes or soap for next 4 weeks. The patient was advice to take lamotrigine as prescribed the patient was instructed not to deviate from the prescription dosages. Stop lamotrigine is the first sign of rash. Patient was insisted to inform office if any of the serious side effect develops. Sertraline 50 mg at night educated on medications monitor for alba/hypomania Baby boy 08/01/23 labs done PCP SSRI/SNRI side effects discussed including but not limited to, gastric upset, nausea, vomiting, diarrhea and/or constipation, weight changes, sexual side effects including loss of libido, increased suicidal thoughts/behaviors in children and young adults, and serotonin syndrome. Second generation antipsychotics (SGAs) have metabolic syndrome issues with weight gain, increase in prolactin, increased waist circumference, increased lipids, and increased glucose. Thus routine monitoring of weight, metabolic labs, etc. is indicated. A general rank ordering of antipsychotics that have the greatest to the least risk of metabolic effects is olanzapine, quetiapine, risperidone, ziprasidone, and aripiprazole. However, weight gain can occur with all of these drugs and considerable variability exists among patients receiving the same drug regarding the risk of metabolic effects. Anti-psychotic agents not only increase the risk of metabolic disorder, they also increase the risk of CVA, akathisia, and movement disorders including EPS or tardive dyskinesia (more common with first generation antipsychotics) and more. educated on all medications, benefits, side effects and risk, and educated on depression, anxiety, and ADHD, mood d/o and educated on compliance of medications, limit sugar intake, excise 30 minutes a day, and limit late night eating, metabolic and movement d/o educationappointme nt's, continue therapy discussion with patient about course of treatment and patient instructions. labs from RA provider therapy patient reported not needed at this time 2. Generalized anxiety disorder -Sertraline 3. Insomnia disorder related to another mental disorder - Trazodone 50 mg at bedtime 4. Attention deficit hyperactivity disorder, predominantly inattentive type - Qelbree 400 mg daily in am - improved ADHD on rx - educated on rx TRENA-2 REVIEWED 5. Long-term drug therapy Discussion Notes labs done PCP 10/29/2024 Generalized anxiety disorder (ICD-10 - F41.1) Generalized Anxiety Disorder: Care Instructions material was published, Learning About Generalized Anxiety Disorder material was published, Learning About Anxiety Disorders material was published, Generalized Anxiety Disorder: Care Instructions material was published, Learning About Generalized Anxiety Disorder material was published, Learning About Anxiety Disorders material was published 1. bipolar I disorder - currently in depression state gastric bypass 06/02/24 had depression after surgery Abilify 10 mg at bedtime will titrate as needed Lamotrigine 50 mg daily discuss and educated on all rx Lamotrigine lamotrigine has a serious rashes requiring hospitalization and discontinue treatment including Jeramie Jake syndrome rare case of toxic epidermal necrolysis and cache related deaths. Incidence with adjunct of epilepsy treatment 0.8% in 2 to 16 years old and 0.3% in adults, bipolar and other mood disorders incidence 0.8% this initial monotherapy and 0.13% as adjunctive treatment. Other risk factor may include concomitant use of valproate acid derivative or exceeding initial lamotrigine does or does as clinician recommendation; most life-threatening rash of occurring first 2 to 8 week of treatment with isolated cases after prolonged treatment; though benign may occur, discontinue treatment at first sign of rash unless clearly not a drug related; TC treatment may not prevent trash from becoming life-threatening or permanently disabling or disfiguring. Comment reaction include, nausea/vomiting, dizziness/vertigo, visual disturbances, somnolence, ataxia, pruritus/rash, pharyngitis, headache, rhinitis, diarrhea, fever, asthenia, insomnia, tremor, abdominal pain, cough, accidental injury, constipation, dysmenorrhea, incoordination, anxiety, seizures, irritability, anorexia, xerostomia, and photosensitivity. Serious reactions include: Rash, severe; Abernathy Jake syndrome; toxic epidermal necrosis; injury edema, hypersensitivity reactions. Including fatal, multiple organ failure to safe fatal, rash with eosinophilia systemic symptoms, DIC, neutropenia, leukopenia, thrombocytopenia, pancytopenia, aplastic anemia, hemolytic anemia, i pancreatitis, hepatic failure, rhabdomyolysis, worsening of suicidal ideation, worsening of depression, cleft lip/palate [first trimester use] DO not Change Cosmetic, perfumes or soap for next 4 weeks. The patient was advice to take lamotrigine as prescribed the patient was instructed not to deviate from the prescription dosages. Stop lamotrigine is the first sign of rash. Patient was insisted to inform office if any of the serious side effect develops. Sertraline 50 mg at night educated on medications monitor for alba/hypomania Baby boy 08/01/23 labs done PCP SSRI/SNRI side effects discussed including but not limited to, gastric upset, nausea, vomiting, diarrhea and/or constipation, weight changes, sexual side effects including loss of libido, increased suicidal thoughts/behaviors in children and young adults, and serotonin syndrome. Second generation antipsychotics (SGAs) have metabolic syndrome issues with weight gain, increase in prolactin, increased waist circumference, increased lipids, and increased glucose. Thus routine monitoring of weight, metabolic labs, etc. is indicated. A general rank ordering of antipsychotics that have the greatest to the least risk of metabolic effects is olanzapine, quetiapine, risperidone, ziprasidone, and aripiprazole. However, weight gain can occur with all of these drugs and considerable variability exists among patients receiving the same drug regarding the risk of metabolic effects. Anti-psychotic agents not only increase the risk of metabolic disorder, they also increase the risk of CVA, akathisia, and movement disorders including EPS or tardive dyskinesia (more common with first generation antipsychotics) and more. educated on all medications, benefits, side effects and risk, and educated on depression, anxiety, and ADHD, mood d/o and educated on compliance of medications, limit sugar intake, excise 30 minutes a day, and limit late night eating, metabolic and movement d/o educationappointme nt's, continue therapy discussion with patient about course of treatment and patient instructions. labs from RA provider therapy patient reported not needed at this time 2. Generalized anxiety disorder -Sertraline 3. Insomnia disorder related to another mental disorder - Trazodone 50 mg at bedtime 4. Attention deficit hyperactivity disorder, predominantly inattentive type - Qelbree 400 mg daily in am - improved ADHD on rx - educated on rx TRENA-2 REVIEWED 5. seeing therapy- r/o autism 6. vaping and cannabis use Do not smoke. Nicotine and other chemicals in cigarettes and cigars can cause lung damage. Ask your healthcare provider for information if you currently smoke and need help to quit. E-cigarettes or smokeless tobacco still contain nicotine. Talk to your healthcare provider before you use these products. education on decrease to stopping nicotine products and stop smoking hotline given -Quit - Yes [place] Tobacco Quitline Call a Smoking Quitline The National Cancer [place] Smoking Quitline, (0-304-96M-QUIT) Smokefree.gov, which connects you with your State's Quitline, (9-872-MSNJRQT) Veterans Smoking Quitline, (9-826-VIDAIKC) Recommend decrease/stop cannabis use as it can negatively impact mood, motivation, anxiety, sleep, focus/concentratio n/memory (vigilance, elasticity, processing and attention); can also contribute to development of psychosis. http_s://www.nim. nih.gov/health/top ics/mental-health- medications http_s://www.benedicto. org/Exluw-Cgmfvz-O llness/Treatments/ Jcvwrw-Bmurcf-Uiaw cations Recommend decrease/stop cannabis use as it may be negatively impacting mood, motivation, anxiety, sleep, focus; can also contribute to development of psychosis Cannabis/marijuana information: http_s://annette.nih. gov/publications/d rugfacts/cannabis- marijuana http_s://www.App.io/cannabi w-ufv-osiexzwy-mar ijuana-adhd/ Long-term drug therapy Discussion Notes labs done PCP 09/17/2024 Bipolar disorder with moderate depression (ICD-10 - F31.32) 1. bipolar I disorder - currently in depression state Had recent gastric bypass 06/02/24 had depression after surgery Abilify 10 mg at bedtime will titrate as needed Add Lamotrigine 25 mg daily for 2 weeks then increase Lamotrigine 50 mg daily discuss and educated on all rx Lamotrigine lamotrigine has a serious rashes requiring hospitalization and discontinue treatment including Jeramie Jake syndrome rare case of toxic epidermal necrolysis and cache related deaths. Incidence with adjunct of epilepsy treatment 0.8% in 2 to 16 years old and 0.3% in adults, bipolar and other mood disorders incidence 0.8% this initial monotherapy and 0.13% as adjunctive treatment. Other risk factor may include concomitant use of valproate acid derivative or exceeding initial lamotrigine does or does as clinician recommendation; most life-threatening rash of occurring first 2 to 8 week of treatment with isolated cases after prolonged treatment; though benign may occur, discontinue treatment at first sign of rash unless clearly not a drug related; TC treatment may not prevent trash from becoming life-threatening or permanently disabling or disfiguring. Comment reaction include, nausea/vomiting, dizziness/vertigo, visual disturbances, somnolence, ataxia, pruritus/rash, pharyngitis, headache, rhinitis, diarrhea, fever, asthenia, insomnia, tremor, abdominal pain, cough, accidental injury, constipation, dysmenorrhea, incoordination, anxiety, seizures, irritability, anorexia, xerostomia, and photosensitivity. Serious reactions include: Rash, severe; Abernathy Jake syndrome; toxic epidermal necrosis; injury edema, hypersensitivity reactions. Including fatal, multiple organ failure to safe fatal, rash with eosinophilia systemic symptoms, DIC, neutropenia, leukopenia, thrombocytopenia, pancytopenia, aplastic anemia, hemolytic anemia, i pancreatitis, hepatic failure, rhabdomyolysis, worsening of suicidal ideation, worsening of depression, cleft lip/palate [first trimester use] DO not Change Cosmetic, perfumes or soap for next 4 weeks. The patient was advice to take lamotrigine as prescribed the patient was instructed not to deviate from the prescription dosages. Stop lamotrigine is the first sign of rash. Patient was insisted to inform office if any of the serious side effect develops. Sertraline 50 mg at night educated on medications monitor for alba/hypomania Baby boy 08/01/23 labs done PCP SSRI/SNRI side effects discussed including but not limited to, gastric upset, nausea, vomiting, diarrhea and/or constipation, weight changes, sexual side effects including loss of libido, increased suicidal thoughts/behaviors in children and young adults, and serotonin syndrome. Second generation antipsychotics (SGAs) have metabolic syndrome issues with weight gain, increase in prolactin, increased waist circumference, increased lipids, and increased glucose. Thus routine monitoring of weight, metabolic labs, etc. is indicated. A general rank ordering of antipsychotics that have the greatest to the least risk of metabolic effects is olanzapine, quetiapine, risperidone, ziprasidone, and aripiprazole. However, weight gain can occur with all of these drugs and considerable variability exists among patients receiving the same drug regarding the risk of metabolic effects. Anti-psychotic agents not only increase the risk of metabolic disorder, they also increase the risk of CVA, akathisia, and movement disorders including EPS or tardive dyskinesia (more common with first generation antipsychotics) and more. educated on all medications, benefits, side effects and risk, and educated on depression, anxiety, and ADHD, mood d/o and educated on compliance of medications, limit sugar intake, excise 30 minutes a day, and limit late night eating, metabolic and movement d/o educationappointme nt's, continue therapy discussion with patient about course of treatment and patient instructions. labs from RA provider therapy patient reported not needed at this time 2. Generalized anxiety disorder -Sertraline 3. Insomnia disorder related to another mental disorder - Trazodone 50 mg at bedtime 4. Attention deficit hyperactivity disorder, predominantly inattentive type - Qelbree 400 mg daily in am - improved ADHD on rx - educated on rx TRENA-2 REVIEWED 5. Long-term drug therapy Discussion Notes labs done PCP 12/24/2024 Generalized anxiety disorder (ICD-10 - F41.1) Generalized Anxiety Disorder: Care Instructions material was published, Learning About Generalized Anxiety Disorder material was published, Learning About Anxiety Disorders material was published, Generalized Anxiety Disorder: Care Instructions material was published, Learning About Generalized Anxiety Disorder material was published, Learning About Anxiety Disorders material was published 1. bipolar I disorder - mood improved gastric bypass 06/02/24 had depression after surgery Abilify 10 mg at bedtime will titrate as needed patient reported increase heart rate - r/o Lamotrigine 50 mg daily- will decrease Lamotrigine 25 mg daily for week then stop Lamotrigine - no refill needed has rx at home discuss and educated on all rx Lamotrigine lamotrigine has a serious rashes requiring hospitalization and discontinue treatment including Jeramie Jake syndrome rare case of toxic epidermal necrolysis and cache related deaths. Incidence with adjunct of epilepsy treatment 0.8% in 2 to 16 years old and 0.3% in adults, bipolar and other mood disorders incidence 0.8% this initial monotherapy and 0.13% as adjunctive treatment. Other risk factor may include concomitant use of valproate acid derivative or exceeding initial lamotrigine does or does as clinician recommendation; most life-threatening rash of occurring first 2 to 8 week of treatment with isolated cases after prolonged treatment; though benign may occur, discontinue treatment at first sign of rash unless clearly not a drug related; TC treatment may not prevent trash from becoming life-threatening or permanently disabling or disfiguring. Comment reaction include, nausea/vomiting, dizziness/vertigo, visual disturbances, somnolence, ataxia, pruritus/rash, pharyngitis, headache, rhinitis, diarrhea, fever, asthenia, insomnia, tremor, abdominal pain, cough, accidental injury, constipation, dysmenorrhea, incoordination, anxiety, seizures, irritability, anorexia, xerostomia, and photosensitivity. Serious reactions include: Rash, severe; Abernathy Jake syndrome; toxic epidermal necrosis; injury edema, hypersensitivity reactions. Including fatal, multiple organ failure to safe fatal, rash with eosinophilia systemic symptoms, DIC, neutropenia, leukopenia, thrombocytopenia, pancytopenia, aplastic anemia, hemolytic anemia, i pancreatitis, hepatic failure, rhabdomyolysis, worsening of suicidal ideation, worsening of depression, cleft lip/palate [first trimester use] DO not Change Cosmetic, perfumes or soap for next 4 weeks. The patient was advice to take lamotrigine as prescribed the patient was instructed not to deviate from the prescription dosages. Stop lamotrigine is the first sign of rash. Patient was insisted to inform office if any of the serious side effect develops. Sertraline 50 mg at night educated on medications monitor for alba/hypomania Baby boy 08/01/23 labs done PCP SSRI/SNRI side effects discussed including but not limited to, gastric upset, nausea, vomiting, diarrhea and/or constipation, weight changes, sexual side effects including loss of libido, increased suicidal thoughts/behaviors in children and young adults, and serotonin syndrome. Second generation antipsychotics (SGAs) have metabolic syndrome issues with weight gain, increase in prolactin, increased waist circumference, increased lipids, and increased glucose. Thus routine monitoring of weight, metabolic labs, etc. is indicated. A general rank ordering of antipsychotics that have the greatest to the least risk of metabolic effects is olanzapine, quetiapine, risperidone, ziprasidone, and aripiprazole. However, weight gain can occur with all of these drugs and considerable variability exists among patients receiving the same drug regarding the risk of metabolic effects. Anti-psychotic agents not only increase the risk of metabolic disorder, they also increase the risk of CVA, akathisia, and movement disorders including EPS or tardive dyskinesia (more common with first generation antipsychotics) and more. educated on all medications, benefits, side effects and risk, and educated on depression, anxiety, and ADHD, mood d/o and educated on compliance of medications, limit sugar intake, excise 30 minutes a day, and limit late night eating, metabolic and movement d/o educationappointme nt's, continue therapy discussion with patient about course of treatment and patient instructions. labs from RA provider therapy patient reported not needed at this time 2. Generalized anxiety disorder -Sertraline 3. Insomnia disorder related to another mental disorder - Trazodone 50 mg at bedtime 4. Attention deficit hyperactivity disorder, predominantly inattentive type - D/C Qelbree 400 mg daily in am - patient would like to stop rx improved ADHD on rx - educated on rx TRENA-2 REVIEWED 5. seeing therapy- DXN autism and Bipolar 6. vaping and cannabis use Do not smoke. Nicotine and other chemicals in cigarettes and cigars can cause lung damage. Ask your healthcare provider for information if you currently smoke and need help to quit. E-cigarettes or smokeless tobacco still contain nicotine. Talk to your healthcare provider before you use these products. education on decrease to stopping nicotine products and stop smoking hotline given -Quit - Yes [place] Tobacco Quitline Call a Smoking Quitline The
--- OUTSIDE RECORDS SUMMARY | 2025-02-17 11:34 | XMS_ITS | Encounter Summary ---
Author Organization [facility] Address [address] [place] [id number] Care Team Providers Care Equities Trader Name Role Phone Lucina Edmondson MD Primary Care Provider [phone] Encounter Details Date Type Department Care Team (Late st Contact Info) Description 06/10/2024 MyChart Message Enc [address] [id number] [address] [place] [address] Lucina Edmondson MD [address] [place] [address] [address] [place] [address] FMLA Paperwork Social History Tobacco Use Types Packs/Day Years [...] Description 04/23/2025 9:40 AM CD[facility] [place] [address] Lucina Edmondson MD [address] [address] 07/14/2025 11:20 AM CDT Office Visit [facility] - [address] [address] Jose Covington MD [address] [place] [id number] documented as of this encounter Visit Diagnoses Not on filedocumented in this encounter Additional Health Concerns Assessment Noted Time PHQ-9 Depression Total Score: 1 01/08/20 24 3:04 PM CDT documented as of this encounter Care Teams Equities Trader Relationship Specialty Start Date End Date Lucina Edmondson MD [address] [place] [id number] PCP - General INTERNAL MEDICINE 07/19/21 documented as of this encounter
--- OUTSIDE RECORDS SUMMARY | 2025-02-17 11:34 | XMS_ITS | Encounter Summary ---
Author Organization [facility] Address [address] [place] [address] Care Team Providers Care Metal Sheet Roller Operator Name Role Phone Lucina Edmondson MD Primary Care Provider [phone] Encounter Details Date Type Department Care Team (Latest Contact Info) Description 12/20/2023 [facility] [place] [address] Lucina Edmondson MD [address] [facility] [address] [place], [place] [id number] Bariatric Referral Social History Tobacco Use Types Packs/Day Years Used Date Smoking Tobacco: Former Cigarettes Q uit: 10/07/2001 Smokeless Tobacco: Never Comments:counseled by Dr Dalila morales Alcohol Use Standard Drinks/Week Comments Not Currently 0 (1 standard drink = 0.6 oz pur e alcohol) PHQ-2 Answer Date Recorded Patient Health Questionnaire-2 Score 0 10/21/2023 Comments No Sex and Gender Information Value [...] Description 04/23/2025 9:40 AM CD[facility] [place], [place] [address] Lucina Edmondson MD [facility] [address] [address] 07/14/2025 11:20 AM CDT Office Visit [facility] - [address] [address] Jose Covington MD [address] [place] [id number] documented as of this encounter Visit Diagnoses Not on filedocumented in this encounter Additional Health Concerns Assessment Noted Time PHQ-9 Depression Total Score: 1 10/21/19 24 10:55 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
--- OUTSIDE RECORDS SUMMARY | 2025-02-17 11:35 | XMS_ITS | Clinical Summary ---
Author Organization [facility] Address [facility] [place] [address] Care Team Providers Care Farebox Repairer Name Role Phone Lucina Edmondson MD Primary Care Provider [phone] Allergies Active Allergy Reactions Criticality Noted Date Comments Amoxicillin Hives Medium 05/31/2020 Medications HUMIRA PEN 40 MG/0.4ML pen-injector kit 03/19/20 22 Active ARIPiprazole (ABILIFY) 2 MG tablet 2.5 tablets (5 mg total). 07/02/20 22 Active sertraline (ZOLOFT) 50 MG tabletIndicatio ns:AUBREE (generalized anxiety disorder),Mild episode of recurrent major depressive disorder Take 1 tablet (50 mg total) by mouth daily. 90 tablet 05/08/20 23 Active Vitamin D, Ergocalciferol, 05572 units CapIndications: Vitamin D deficiency Take 50,000 Units by mouth once a week. 12 capsule 3 04/15/20 24 Active calcium citrate-vitamin D (CITRACAL PETITES/VITAMIN D) 200-6.25 MG-MCG Tab Take 2 tablets by mouth 3 (three) times daily. 05/27/20 24 025 Active vitamin B-12 (CYANOCOBALAMIN ) 500 MCG tablet Take 1 tablet (500 mcg total) by mouth daily. 05/27/20 24 025 Active ferrous sulfate, 65 mg elemental, 325 (65 FE) MG tablet Take 1 tablet (325 mg total) by mouth daily. 05/27/20 24 025 Active tretinoin (RETIN-A) 0.01 % gelIndications: Melasma Apply topically nightly at bedtime. 45 g 1 06/09/20 24 Active gabapentin (NEURONTIN) 300 MG capsuleIndicati ons:RLS (restless legs syndrome) Take 1 capsule (300 mg total) by mouth nightly at bedtime. 90 capsule 1 10/23/19 25 Active ARIPiprazole (ABILIFY) 10 MG tablet take 1 tablet by mouth every day at bedtime for 90 days 07/24/20 24 Active labetalol (NORMODYNE) 100 MG tabletIndicatio ns:Primary hypertension Take 1 tablet (100 mg total) by mouth 2 (two) times daily. 180 tablet 1 01/27/20 25 Active losartan (COZAAR) 50 MG tabletIndicatio ns:Primary hypertension Take 1 tablet (50 mg total) by mouth daily. 90 tablet 1 01/27/20 25 Active traZODone (DESYREL) 100 MG tabletIndicatio ns:Mild episode of recurrent major depressive disorder,AUBREE (generalized anxiety disorder) Take 1 tablet (100 mg total) by mouth nightly at bedtime. 90 tablet 1 01/27/20 25 Active tirzepatide (ZEPBOUND) 2.5 MG/0.5ML injectionIndica tions:ZULAY (obstructive sleep apnea),Class 2 severe obesity due to excess calories with serious comorbidity and body mass index (BMI) of 39.0 to 39.9 in adult ([facility]) INJECT 2.5 MG INTO THE SKIN ONCE A WEEK. 2 mL 01/27/20 25 Active traZODone (DESYREL) 50 MG tabletIndicatio ns:Mild episode of recurrent major depressive disorder,AUBREE (generalized anxiety disorder) Take 1.5 tablets (75 mg total) by mouth nightly at bedtime. 135 tablet 1 10/23/19 25 025 Discontinued(Re order) losartan (COZAAR) 50 MG tabletIndicatio ns:Primary hypertension Take 1 tablet (50 mg total) by mouth daily. 90 tablet 12/30/19 25 025 Discontinued(Re order) labetalol (NORMODYNE) 100 MG tabletIndicatio ns:Primary hypertension Take 1 tablet (100 mg total) by mouth 2 (two) times daily. 180 tablet 1 12/30/19 25 025 Discontinued(Re order) tirzepatide (ZEPBOUND) 2.5 MG/0.5ML injectionIndica tions:Weight Loss Inject 2.5 mg into the skin once a week. Indications: Weight Loss 2 mL 01/27/20 25 025 Discontinued Hospital, Clinic, or Other Facility Administered Medication Ordered Dose Route Frequency Start Date End Date Status BUpivacaine (PF) (MARCAINE) 0.25 % injection 5 mLIndications:Effusion of bursa of right knee [address] Once 06/12/2022 Activ e Active Problems Problem Noted Date Diagnosed Date Allergic rhinitis 01/27/2025 Overview (01/27/2025): A: - F/U MDD. - Current Rx Plan going well (slowly D/C Paxil and try Prozac in hopes to decrease weight gain, voracious appetite). Allergic urticaria 01/27/2025 Allergy to pollen 01/27/2025 Ankle pain 01/27/2025 Anxiety 01/27/2025 Bipolar disorder with depression ([facility] C) 01/27/2025 Borderline personality disorder ([facility] ) 01/27/2025 Contraceptive surveillance 01/27/2025 Depressive disorder 01/27/2025 Diarrhea 01/27/2025 Overview (01/27/2025): March 01, 2020 Entered By: PRISCILLA JANG Comment: 06/10/18 normal egd and colonoscopy with benign biopsies Drug withdrawal ([facility]) 01/27/2025 Overview (01/27/2025): Pt ed and counseling given for 10 min re nature of illness, DDx, Tx options, likely outcome of disease, expected course of illness, and aeromedical concerns. All questions answered. Recc resume paxil, 20 mg bid today, then 20 mg qd after until seen by LS. Dry mouth 01/27/2025 Elevated blood pressure reading 01/27/2025 Depression screening 01/27/2025 Encounter for medication refill 01/27/2025 Engages in vaping 01/27/2025 Family history of diabetes mellitus 01/27/2025 Family history of ischemic heart disease 025 Family history of leukemia 01/27/2025 Family history of mental disorder 01/27/2025 Gastroenteritis 01/27/2025 Overview (01/27/2025): DNIF x 3 days Quarters 24 hrs Discussed bland, low fat diet, no ETOH, rehydration techniques Loperimide 2mg PO-2 tabs now, one tab per episode of diarrhea #20 RF0 Promethazine 25mg PO QID PRN #12 RF0 RTC to RTFS Seatbelts Gastroesophageal reflux disease 01/27/2025 Irritable bowel syndrome 01/27/2025 Major depressive disorder, single episode, mild 01/27/2025 Overview (01/27/2025): A: - SSRI (Paxil) related weight gain. 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 Marijuana use 01/27/2025 Musculoskeletal and connective tissue disease Myalgia 01/27/2025 Myopia 01/27/2025 Nosophobia 01/27/2025 Overweight 01/27/2025 Pain in thoracic spine 01/27/2025 Palpitations 01/27/2025 Panic disorder without agoraphobia 01/27/2025 Pilonidal cyst 01/27/2025 Regular astigmatism 01/27/2025 Sjogren's syndrome (HHS/HCC) 01/27/2025 Overview (01/27/2025): Per [facility] Rheumotology note August 2018: diagnosed with Sjogren's syndrome as well as use UCTD. She's currently managed with Plaquenil 400 mg alternating with 200 mg daily. She uses artificial tears as well as Biotene. Overall she's been stable (see review of systems) she is in the process of trying to become . She is SSA and RICHARD positive [facility] [address] [place] [address] Jacek Ramachandran MD [address] [place] [address] Sjogren's syndrome, with unspecified organ involvement (HCC) (Primary Dx); Undifferentiated connective tissue disease (HCC) Tear film insufficiency 01/27/2025 Tobacco user 01/27/2025 Overview (01/27/2025): May 16, 2021 Entered By: PRISCILLA JANG Comment: quit smoking 05/14/21 Upper respiratory infection 01/27/2025 Uses intrauterine device for control 01/27 Vaginismus 01/27/2025 Vitamin D deficiency 01/27/2025 Varicose veins of bilateral lower extremities wi th pain 01/27/2025 Autistic disorder ([facility]) 10/07/2024 Overview (01/27/2025): Finally diagnosed Status post bariatric surgery 09/02/2024 Bipolar affective disorder, currently depressed, mild ([facility]) 01/24/2024 shelter current use of therapeutic drug 2023 Attention deficit hyperactiv ity disorder (ADHD), predominantly inattentive type 01/31/2022 Primary hypertension 07/19/2021 Arrhythmia 07/19/2021 Class 2 obesity due to excess calories in adult 07/19/2021 Tobacco dependence 07/19/2021 History of alcohol dependence ([facility]) 07/19/2021 AUBREE (generalized anxiety disorder) 07/19/2021 Mild episode of recurrent major depressive disor preethi 07/19/2021 Chronic post-traumatic stress disorder (PTSD) ZULAY (obstructive sleep apnea) 07/19/2021 Rheumatoid arthritis involvi ng multiple sites with positive rheumatoid factor ([facility]) 05/31/2020 Overview (10/19/2021): Labs AVISE: RICHARD 1:320 speckled, Ro52 106, Ro60 >1375, RF IgM 9.9, RF IgA 114 14.3.3 eta 1.0 Hepatitis negative Xrays CXR negative XR R foot negative XR L foot - small calcaneal enthesophyte XR hands negative Ultrasound 04/18/2020 US R hand/wrist: mild thickening/effusion wrist wtih grade 1 PD under the tendon. Mild 2nd PIP and moderate 3rd PIP thickening. Last Assessment & Plan: Moderate cdai. In the last few months [...] weeks to reassess or sooner as needed. Labs AVISE: RICHARD 1:320 speckled, Ro52 106, Ro60 >1375, RF IgM 9.9, RF IgA 114 14.3.3 eta 1.0 Hepatitis negative Xrays CXR negative XR R foot negative XR L foot - small calcaneal enthesophyte XR hands negative Ultrasound 04/18/2020 US R hand/wrist: mild thickening/effusion wrist wtih grade 1 PD under the tendon. Mild 2nd PIP and moderate 3rd PIP thickening. Last Assessment & Plan: cdai in remission. No indication for escalating treatment. Will continue leflunomide 20 mg daily with hydroxychloroquine 400 mg daily. Plan for follow up in 3 months to reassess or sooner as needed. Undifferentiated connective tissue disease (HHS/ HCC) 04/14/2020 Overview (10/19/2021): Labs AVISE: RICHARD 1:320 speckled, Ro52 106, Ro60 >1375, RF IgM 9.9, RF IgA 114 14.3.3 eta 1.0 Hepatitis negative Xrays CXR negative XR R foot negative XR L foot - small calcaneal enthesophyte XR hands negative Ultrasound 04/18/2020 US R hand/wrist: mild thickening/effusion wrist wtih grade 1 PD under the tendon. Mild 2nd PIP and moderate 3rd PIP thickening. Last Assessment & Plan: RICHARD 1:320 speckled, Ro52 106, Ro60 >1375, RF IgM 9.9, RF IgA 114, 14.3.3 eta 1.0, unremarkable xrays, and ultrasound with only mild changes. Repeat US and continue hydroxychloroquine and leflunomide as above. Labs AVISE: RICHARD 1:320 speckled, Ro52 106, Ro60 >1375, RF IgM 9.9, RF IgA 114 14.3.3 eta 1.0 Hepatitis negative Xrays CXR negative XR R foot negative XR L foot - small calcaneal enthesophyte XR hands negative Ultrasound 04/18/2020 US R hand/wrist: mild thickening/effusion wrist wtih grade 1 PD under the tendon. Mild 2nd PIP and moderate 3rd PIP thickening. Last Assessment & Plan: RICHARD 1:320 speckled, Ro52 106, Ro60 >1375, RF IgM 9.9, RF IgA 114, 14.3.3 eta 1.0, unremarkable xrays, and ultrasound with only mild changes. Continue hydroxychloroquine and leflunomide as above. Resolved Problems Problem Noted Date Diagnosed Date Resolved Date Screening for malignant neoplasm of cervix 01/27/2025 02/01/2025 Encounters Date Type Department Care Team Description 02/09/2025 1:40 PM CDT - 02/09/2025 11:59 PM CDT Hospital Encounter [facility] [place] [address] Carlos Burger MD Discharge Disposition: Home or Self Care (Routine Discharge) 02/09/2025 Travel 01/28/2025 Orders Only [facility], [address] [address] Carlos Burger MD 01/27/2025 3:15 PM CDT Office Visit [facility], [address] [address] Carlos Burger MD Varicose Veins 01/27/2025 Orders Only [facility], [address] [address] Carlos Burger MD 01/27/2025 Travel 01/26/2025 11:20 AM CDT [facility] [place] [facility] [place] [address] [place] [address] Lucina Edmondson MD Follow Up; Hypertension; Sleep Problem; Weight Problem 01/26/2025 Travel 01/13/2025 10:00 AM CDT Office Visit [facility] - [place] [address] [place] [address] Jose Covington MD Obstructive Sleep Apnea 01/13/2025 Travel 01/11/2025 Scan [facility] [employer] SRVCS Scanned, [facility] Sleep Study (SCAN) 12/29/2024 3:00 PM CDT Office Visit [facility] - [place] [address] [facility] [address] [place] [address] Lucina Edmondson MD Follow Up; Weight Problem; Hypertension; Skin Problem 12/29/2024 Travel 11/27/2024 Scan [facility] SRVCS Scanned, [facility] from Last 3 Months Immunizations Immunization Administration Dates Next Due Fluzone 6 Months+ Quad (0.5 mL Prefilled Syringe) 07/23/2022 HPV4 (Gardasil) 11/17/2007,04/17/2007,12/06/2006 Hepatitis A (Havrix [address]) 04/11/2004,2001 Influenza (FluMist) 09/23/2007 Influenza (Generic) 07/30/2024,,07/09/2022,08/03,09/02/2015,08/11/2014,07/17/2013 ,09/05/2006,07/26/2005,11/07/2004,08/07,08/21/2002,03/06/2002 Influenza Adult (Generic) 08/05/2024,07/2023,06/22/2021,06/07,08/02/2020,07/09/2019,07/09/2017 Meningococcal (Menomune) 03/06/2002 PFIZER COVID-19 (12+) MRNA, LNP-S, PF, YOLI-SUCROSE, 30 MCG/0.3 ML (COMIRNATY) 07/30/2024 PFIZER COVID-19 (BUCHANAN CAP), MRNA, LNP-S, PF, 30 MCG/0.3 ML YOLI-SUCROSE, IM 02/22/2022 PFIZER COVID-19 (ORIGINAL FO RMULATION, PURPLE CAP) mRNA, LNP-S, PF, 30 MCG/0.3 ML DOSE 07/09/2022,02/22/2022 PFIZER COVID-19 BIVALENT (12 +) mRNA, LNP-S, PF, 30 MCG/0.3 ML DOSE 08/05/2024 Pneumococcal (Prevnar 13) 04/05/2021 Polio IPV (Ipol) 03/06/2002 Shingrix 12/25/2021,05/22/2021 Small Pox 11/10/2004 Td (TDVAX) 04/11/2004 Tdap (Adacel) 07/19/2021 Tdap (Generic) 05/29/2023,02/08/2012 Typhoid Vi Polysaccharide Va cc 25 Mcg/0.5Ml Im Soln 11/07/2004 Family History Medical History Relation Comments Alcohol Abuse Brother Alcohol Abuse Father Arthritis Father Diabetes Maternal Aunt Heart Disease Maternal Aunt Alcohol Abuse Maternal Grandfather Alcohol Abuse Maternal Grandmother Diabetes Maternal Uncle Heart Disease Maternal Uncle Alcohol Abuse Mother Pre-ovarian cancer Mother Had hysterect moriah at 35 Diabetes Paternal Aunt Heart Disease Paternal Aunt Alcohol Abuse Paternal Grandfather Alcohol Abuse Paternal Grandmother Cancer Paternal Grandmother Lung Diabetes Paternal Uncle Heart Disease Paternal Uncle Relation Status Comments Brother Father Alive Maternal Aunt Maternal Grandfather Maternal Grandmother Maternal Uncle Mother Alive Paternal Aunt Paternal Grandfather Paternal Grandmother Paternal Uncle Social History Tobacco Use Types Packs/Day Years Used Date Smoking Tobacco: Former Cigarettes Q uit: 10/07/2001 Smokeless Tobacco: Never Tobacco Cessation:Counseling Given: Yes Comments:counseled by Dr Edmondson Alcohol Use Standard Drinks/Week Comments Yes 0 [...] Orientation Straight 12/29/2024 3: 02 PM CDT Last Filed Vital Signs Vital Sign Reading Time Taken Comments Blood Pressure 126/70 01/27/2025 3:17 PM CDT Pulse 102 01/27/2025 3:17 PM CDT Temperature 36.1 C (97 F) 01/26/2025 11:22 AM CDT Respiratory Rate 18 01/26/2025 11:2 2 AM CDT Oxygen Saturation 100% 01/26/2025 11: 22 AM CDT Inhaled Oxygen Concentration - - Weight 114.4 kg (252 lb 3.2 oz) 01/27/2025 3:17 PM CDT Height 167.6 cm (5' 6 ) 01/27/2025 3:17 PM CDT Body Mass Index 40.71 01/27/2025 3:17 PM CDT Plan of Treatment Upcoming Encounters Date Type Department Care Team (Late st Contact Info) Description 04/23/2025 9:40 AM CDT Office Visit [facility] - [place] [address] [address] [place] [address] Lucina Edmondson MD [address] [place] [address] 07/14/2025 11:20 AM CDT Office Visit [facility] Medical [facility] - [address] [address] Jose Covington MD [address] [place] [address] Health Maintenance Due Date Last Done Comments Hepatitis B Vaccines (1 of 3 - 19+ 3-dose series) 12/17/2002 Cervical Cancer Screening Pap Smear (Age 30 to 64) Every 3 Years 12/06/2024 12/06/2021, 07/28/2019 Annual Physical 10/23/2025 10/23/2024, 10/07, 07/23/2022, Additional history exists Mammogram Screening 05/15/2026 05/15/2024 Cervical Cancer Screening Pap with HPV Testing (Age 30 to 64) Every 5 Years 12/06/2026 12/06/2021, 07/28/2019 Cervical Cancer Screening with HPV 12/06/2026 DTaP, Tdap and Td Vaccines (4 - Td or Tdap) 05/29/2033 05/29/2023, 07/19/2021, 02/08/2012, Additional history exists Meningococcal Vaccine Aged Out 03/06/2002 No keerthi lizzie eligible based on patient's age to complete this topic HPV Vaccines Completed 11/17/2007, 04/06, 12/06/2006 Pneumococcal Vaccine: Pediatrics (0 to 5 Years) and At-Risk Patients (6 to 49 Years) Aged Out 04/05/2021 No longer eligible based on patient's age to complete this topic Hepatitis C Completed 07/19/2021 COVID-19 Vaccine Completed 08/05/2024, , 07/09/2022, Additional history exists PHQ-2 (Physician [place]) Completed 10/23/2024 Meningococcal B Vaccine Aged Out No l onger eligible based on patient's age to complete this topic RSV Immunizations Under 20 Months Aged Out No longer eligible based on patient's age to complete this topic Procedures Procedure Name Priority Date/Time Associated Diagnosis Comments USV VENOUS REFLUX LOW KAT Routine 02/09/2025 2:31 PM CDT Varicose veins of lower extremity with pain, bilateral SLEEP STUDY GENERIC (SCAN ORDER) 01/11/2025 MAMMOGRAM GENERIC (SCAN ORDER) 05/15/2024 HUMAN PAPILLOMAVIRUS, HIGH-RISK TYPES Routine 12/06/2021 12:00 PM FARM MANAGEMENT PROFESSOR CYTOPATH CERV/VAG THIN LAYER Routine 12/06/2021 7:25 AM FARM MANAGEMENT PROFESSOR HEPATITIS C ANTIBODY Routine 07/19/2021 12:37 PM CDT Annual physical exam Encounter to establish care General medical exam from Last 3 Months or Most Recently Relevant to Health Maintenance Results * USV VENOUS REFLUX LOW KAT (02/09/2025 2:31 PM CDT) Anatomical Region Laterality Modality Extremity Vascular Ultraso und 02/09/2025 1:45 PM CDT Narrative 02/10/2025 8:54 PM CDT VENOUS DUPLEX IMAGING BILATERAL LOWER EXTREMITY VASCULAR LAB Pat.Name: CHRISTINA COWAN Pat.ID: [id number] St.Date: 02/09/2025 Refer.MD: Lucina Edmondson Exam Time: 1:45:00 PM Study Type:TARI VS Venous Duplex Legs KAT Age: 3 1985,39Y Sex: F Sonogrphr: Susi He, Sheron Pat. Stat.:Outpatient History / Clinical:Varicose veins bilaterally. DVT. Procedures: Buchanan scale, Color Doppler imaging, Doppler Spectral Analysis Race: W ++++++++++++++++++++++++++++++++++++ SUMMARY: ++++++++++++++++++++++++++++++++++++ The deep veins are patent bilaterally from groin to calf. Reflux measurements obtained with patient supine in steep reverse Trendelenberg. Presence of reflux > 1 second duration is seen in the bilateral great saphenous veins. No reflux > 1 second duration is seen in the bilateral deep veins. Accessory saphenous vein in the left anterior thigh, comes off the great saphenous vein 2.5 cm distal to the sapheno-femoral junction. CONCLUSION: There is reflux (>1 sec) in the bilateral great saphenous veins. No evidence of acute deep or superficial vein thrombosis of both lower extremities. ++++++++++++++++++++++++++++++++++++ MEASUREMENTS: ++++++++++++++++++++++++++++++++++++ REFLUX Right CFV CFV 0 sec Right Mid FV Mid FV 0 sec Right Pop V Pop V 0 sec Right SFJ GSV SFJ 11.9 mm GSV SFJ 3.3 sec Right Prox Thigh GSV Prox Thigh 7.3 mm GSV Prox Thigh 2.7 sec Right Dist Thigh/AK GSV Dist Thigh 8 mm GSV Dist Thigh 3 sec Right Mid SSV Mid 3.1 mm SSV Mid 0 sec Right Prox SSV Prox 3.2 mm SSV Prox 0 sec Right Prox Calf GSV Prox Calf 6.4 mm GSV Prox Calf 3.5 sec Left CFV CFV 0 sec Left Mid FV Mid FV 0 sec Left Pop V Pop V 0 sec Left SFJ GSV SFJ 10.9 mm GSV SFJ 2.2 sec Left Prox Thigh GSV Prox Thigh 6.1 mm GSV Prox Thigh 3.9 sec Left Dist Thigh/AK GSV Dist Thigh 5.9 mm GSV Dist Thigh 3.7 sec Left Prox Calf GSV Prox Calf 5.8 mm GSV Prox Calf 3.3 sec Left Mid SSV Mid 2.6 mm SSV Mid 0 sec Left Prox SSV Prox 2.8 mm SSV Prox 0 sec DOPPLER Right Diameter 0.73 cm Left Diameter 0.61 cm SFJ Right SFJ Diame 1.19 cm Left SFJ Diamet 1.09 cm <Electronic Signature> 02/10/2025 08:54 PM Carlos Burger M.D. Procedure Note Carlos Burger MD - 02/10/2025 VENOUS DUPLEX IMAGING BILATERAL LOWER EXTREMITY VASCULAR LAB Pat.Name: CHRISTINA COWAN Pat.ID: [id number] .Date: 02/09/2025 Refer.MD: Lucina Edmondson Exam Time: 1:45:00 PM Study Type:TARI VS Venous Duplex Legs KAT Age: 3 1985,39Y Sex: F Sonogrphr: Susi [facility] T Pat. Stat.:Outpatient History / Clinical:Varicose veins bilaterally. DVT. Procedures: Buchanan scale, Color Doppler imaging, Doppler Spectral Analysis Race: W ++++++++++++++++++++++++++++++++++++ SUMMARY: ++++++++++++++++++++++++++++++++++++ The deep veins are patent bilaterally from groin to calf. Reflux measurements obtained with patient supine in steep reverse Trendelenberg. Presence of reflux > 1 second duration is seen in the bilateral great saphenous veins. No reflux > 1 second duration is seen in the bilateral deep veins. Accessory saphenous vein in the left anterior thigh, comes off the great saphenous vein 2.5 cm distal to the sapheno-femoral junction. CONCLUSION: There is reflux (>1 sec) in the bilateral great saphenous veins. No evidence of acute deep or superficial vein thrombosis of both lower extremities. ++++++++++++++++++++++++++++++++++++ MEASUREMENTS: ++++++++++++++++++++++++++++++++++++ REFLUX Right CFV CFV 0 sec Right Mid FV Mid FV 0 sec Right Pop V Pop V 0 sec Right SFJ GSV SFJ 11.9 mm GSV SFJ 3.3 sec Right Prox Thigh GSV Prox Thigh 7.3 mm GSV Prox Thigh 2.7 sec Right Dist Thigh/AK GSV Dist Thigh 8 mm GSV Dist Thigh 3 sec Right Mid SSV Mid 3.1 mm SSV Mid 0 sec Right Prox SSV Prox 3.2 mm SSV Prox 0 sec Right Prox Calf GSV Prox Calf 6.4 mm GSV Prox Calf 3.5 sec Left CFV CFV 0 sec Left Mid FV Mid FV 0 sec Left Pop V Pop V 0 sec Left SFJ GSV SFJ 10.9 mm GSV SFJ 2.2 sec Left Prox Thigh GSV Prox Thigh 6.1 mm GSV Prox Thigh 3.9 sec Left Dist Thigh/AK GSV Dist Thigh 5.9 mm GSV Dist Thigh 3.7 sec Left Prox Calf GSV Prox Calf 5.8 mm GSV Prox Calf 3.3 sec Left Mid SSV Mid 2.6 mm SSV Mid 0 sec Left Prox SSV Prox 2.8 mm SSV Prox 0 sec DOPPLER Right Diameter 0.73 cm Left Diameter 0.61 cm SFJ Right SFJ Diame 1.19 cm Left SFJ Diamet 1.09 cm <Electronic Signature> 02/10/2025 08:54 PM Carlos Burger M.D. Carlos Burger MD US VASC Final Result * SLEEP STUDY GENERIC (SCAN ORDER) (01/11/2025) 01/11/2025 [facility] Scanned SCANNING Final Resu lt * MAMMOGRAM GENERIC (SCAN ORDER) (05/15/2024) Anatomical Region Laterality Modality Other 05/15/2024 [facility] Scanned SCANNING Final Resu lt * HUMAN PAPILLOMAVIRUS, HIGH-RISK TYPES (12/06/2021 12:00 PM FARM MANAGEMENT PROFESSOR) SPECIMEN CERVICAL/END OCERVICAL 12/08/2021 8:50 AM FARM MANAGEMENT PROFESSOR [facility] HPV DNA HIGH RISK NEGATIVE NEGATIVE 12/08/2021 2:33 PM FARM MANAGEMENT PROFESSOR [facility] Comment:SEE CYTOLOGY REPORT 12/06/2021 12:0 0 PM FARM MANAGEMENT PROFESSOR Lucina Edmondson MD PATHOLOGY/CYTOLOGY ORDERABLES Fi nal Result [facility] [address] [place] [address], * Cytopath Cerv/Vag Thin Layer (12/06/2021 7:25 AM FARM MANAGEMENT PROFESSOR) THIN PREP PAP [facility] [address] [place] [address] Department of Pathology Pathology Report CERVICAL/VAGINAL PAP SMEAR REPORT Name: CHRISTINA COWAN Age: 3 1985 (Age: 35) Location: [facility] Sex: F Collected Date: 12/06/2021 Hospital #: [id number] Date Received: 12/08/2021 Date Reported: 12/12/2021 Provider: LUCINA EDMONDSON MD INTERPRETATION CERVICAL/ENDOCERVI DEBBIE: SATISFACTORY FOR EVALUATION. ENDOCERVICAL/TRANS FORMATION ZONE COMPONENT ABSENT. NEGATIVE FOR INTRAEPITHELIAL LESION OR MALIGNANCY. NEGATIVE FOR HIGH RISK HPV. The FDA approved Aptima HPV assay is an in vitro nucleic acid amplification test for the qualitative detection of E6/E7 viral messenger RNA (mRNA) from 14 high-risk types of human papillomavirus (HPV) in cervical specimens. The high-risk HPV types detected by the assay include: 16,18,31,33,35,39, 45,51,52,56,58,59, 66, and 68. Electronically Signed Out By ZACHARY Morales (ASCP) CLINICAL HISTORY Z12.4 SCREENING PAP TEST ThinPrep Pap Test with HR HPV testing in patient > 30 years requested. Date of Last Menstrual Period: NOV 2021 Menstrual Status: Regular SPECIMEN SUBMITTED CERVICAL/ENDOCERVI DEBBIE Specimen Received:1 Thin Prep Vial, Image Assisted Pap (SMD) Please note: The Pap smear is not a diagnostic test. It is a screening test. Negative results on combined screening (Pap test and HPV-DNA) have a high negative predictive value (99.1-100 percent) for cervical cancer. The pap test is not effective in detecting cervical adenocarcinoma. [facility] 12/06/2021 7:25 AM FARM MANAGEMENT PROFESSOR 12/08/2021 7:25 AM FARM MANAGEMENT PROFESSOR Comment:CERVICAL/ENDOCERVICA L Lucina Edmondson MD PATHOLOGY/CYTOLOGY ORDERABLES Fi nal Result [facility] [address] [place] [address], * HEPATITIS C ANTIBODY (07/19/2021 12:37 PM CDT) HEPATITIS C AB NON-REACTI VE NON-REACT ROLAND 07/19/2021 9:43 PM CDT [facility] Comment: ANTIBODIES TO HCV NOT DETECTED. DOES NOT EXCLUDE THE POSSIBILITY OF EXPOSURE TO HCV. 07/19/2021 12:3 7 PM CDT Lucina Edmondson MD LABORATORY Final Result [facility] [address] [place] [address], [id number] from Last 3 Months or Most Recently Relevant to Health Maintenance Insurance NA Member Subscriber Plan / Payer (Ef fective 2023-Present) Name:Chapo Christina Barrientose Relation to Subscriber:Self Name:Christina Cowan [id number]|2025-02-17 11:34:00|2025-02-17 11:34:00|XMS_ITS|BKG DAEMON|External Medical Summaries|[id number]|" Encounter Summary Created on: February 17, 2025 Christina Cowan : 1985 Sex: Female Author Organization [facility] Address [address] [place] [address] Care Team Providers Care Farebox Repairer Name Role Phone Lucina Edmondson MD Primary Care Provider [phone] Encounter Details Date Type Department Care Team (Latest Contact Info) Description 04/04/2024 Connecthart Message Enc [facility] Medical Group Multispecialty Care - [place] [address] [place] [address] [address] [place] [address] [place] [address] [place] [address] [address] [place] [address] Bariatric surgery labs Social History Tobacco Use Types Packs/Day Years [...] Description 04/23/2025 9:40 AM CDT Office Visit [facility] Medical Group Multispecialty Care [place] [address] [address] [place] [address] Lucina Edmondson MD [id number] [address] [address] 07/14/2025 11:20 AM CDT Office Visit [facility] Medical [facility] Pulmonology Specialty Clinic - [address] [address] Jose Covington MD [address] [place] [address] documented as of this encounter Visit Diagnoses Not on filedocumented in this encounter Additional Health Concerns Assessment Noted Time PHQ-9 Depression Total Score: 1 01/08/20 24 3:04 PM CDT documented as of this encounter Care Teams Farebox Repairer Relationship Specialty Start Date End Date Lucina Edmondson MD [address] [place] [address] PCP - General INTERNAL MEDICINE 07/19/21 documented as of this encounter "
--- OUTSIDE RECORDS SUMMARY | 2025-02-17 11:35 | XMS_ITS | Encounter Summary ---
Author Organization [facility] Address [address] [place] [address] Care Team Providers Care Supervisor Drilling And Shooting Name Role Phone Lucina Edmondson MD Primary Care Provider [phone] Encounter Details Date Type Department Care Team (Latest Contact Info) Description 09/24/2023 MyChart Message Enc [facility] Medical Group Multispecialty Care - [place] [address] [place] [address] [address] [place] [address] [place] [address] [place] [address] 157 [place] [address] Positive Covid Test Social History Tobacco Use Types Packs/Day Years Used Date Smoking Tobacco: Former Cigarettes Q uit: 10/07/2001 Smokeless Tobacco: Never Comments:counseled by Dr Dalila morales Alcohol Use Standard Drinks/Week Comments Yes 0 (1 standard drink = 0.6 oz pur e alcohol) PHQ-2 Answer Date Recorded Patient Health Questionnaire-2 Score 0 09/24/2023 Comments Yes Sex and Gender Information Value Date Recorded Sex Assigned at Female 12/29/2024 3:02 PM CDT Legal Sex Female 10:33 PM CDT Gender Identity Female 12/29/2024 3:02 PM CDT Sexual Orientation Straight 12/29/2024 3: 02 PM CDT documented as of this encounter Functional Status * Over the past 2 weeks, how often have you been bothered by any of the following problems? Question Answer Date of Assessment Author Status Little interest or pleasure in doing things Not at all 09/24/2023 11:25 AM Janna Tsai MA Acti ve Feeling down, depressed, or hopeless Not at all 09/24/2023 11:25 AM Janna Tsai MA Active Patient Health Questionnaire-2 Score 0 09/24/2023 11:25 AM Janna Tsai M A Active * Question Answer Date of Assessment Author Status Trouble falling or staying asleep, or sleeping too much Not at all 09/24/2023 11:25 AM Janna Tsai MA Active Feeling tired or having little energy Several days 09/24/2023 11:25 AM Janna Tsai MA Active Poor appetite or overeating Not at all 09/24/2023 11:25 AM Janna Tsai MA Active Feeling bad about yourself - or that you are a failure or have let yourself or your family down Not at all 09/24/2023 11:25 AM Janna Tsai MA Active Trouble concentrating on things, such as reading the newspaper or watching television Not at all 09/24/2023 11:25 AM Janna Tsai MA Active Moving or speaking so slowly that other people could have noticed? Or the opposite - being so fidgety or restless that you have been moving around a lot more than usual. Not at all 09/24/2023 11:25 AM Janna Tsai MA Active Thoughts that you would be better off or hurting yourself in some way Not at all 09/24/2023 11:25 AM Janna Tsai MA Active Patient Health Questionnaire-9 Score 1 09/24/2023 11:25 AM Janna Tsai MA Active * If you checked off any problems on this questionnaire so far, Question Answer Date of Assessment Author Status How difficult have these problems made it for you to do your work, take care of things at home, or get along with other people? Not difficult at all 09/24/2023 11:25 AM Janna Tsai MA Active * Over the last 2 weeks, how often have you been bothered by any of the following problems? Question Answer Date of Assessment Author Status Feeling nervous, anxious, or on edge 0 09/24/2023 11:26 AM Janna Tsai MA Acti ve Not being able to stop or control worrying 0 09/24/2023 11:26 AM VOICE NETWORK ADMINISTRATOR Janna Cronin MA Act viki Worrying too much about different things 0 09/24/2023 11:26 AM VOICE NETWORK ADMINISTRATOR Janna Cronin MA Act viki Trouble relaxing 0 09/24/2023 11:26 AM VOICE NETWORK ADMINISTRATOR Janna Cronin MA Active Being so restless that it is hard to sit still 0 09/24/2023 11:26 AM Janna Tsai MA Active Becoming easily annoyed or irritable 0 09/24/2023 11:26 AM VOICE NETWORK ADMINISTRATOR Janna Cronin MA Acti ve Feeling afraid as if something awful might happen 0 09/24/2023 11:26 AM Janna Tsai MA Acti ve AUBREE-7 Total Score 0 09/24/2023 11:26 AM VOICE NETWORK ADMINISTRATOR Janna Sigala MA Active documented as of this encounter Plan of Treatment Upcoming Encounters Date Type Department Care Team (Late st Contact Info) Description 04/23/2025 9:40 AM CDT Office Visit [facility] Medical Group Multispecialty Care - [place] [address] [address] [place] [address] Lucina Edmondson MD [facility] [address] [address] 07/14/2025 11:20 AM CDT Office Visit [facility] Medical Group Pulmonology Specialty Clinic - [address] [address] Jose Covington MD [address] [place] [address] documented as of this encounter Visit Diagnoses Not on filedocumented in this encounter Additional Health Concerns Assessment Noted Time PHQ-9 Depression Total Score: 1 09/24/20 23 11:25 AM VOICE NETWORK ADMINISTRATOR documented as of this encounter Care Teams Supervisor Drilling And Shooting Relationship Specialty Start Date End Date Lucina Edmondson MD [address] [place] [address] PCP - General INTERNAL MEDICINE 07/19/21 documented as of this encounter
--- OUTSIDE RECORDS SUMMARY | 2025-02-17 11:35 | XMS_ITS | Encounter Summary ---
Author Organization [facility] Address [address] [facility] [address] [place] [address] Phone Care Team Providers Care Pension Agent Name Role Phone Ghulam STOKES MD, Donnie. [facility] [phone] Lucina Edmondson MD Primary Care Provider [phone] Encounter Details Date Type Department Care Team (Late st Contact Info) Description 02/16/2025 Results Follow-Up [facility] Minimally Invasive Surgery [address] [place] [address] Medical Office Building [address] [place] [address] Jeffrey Mccall NP [address] [facility] [phone] [place] [address] Social History Tobacco Use Types Packs/Day Years Used Date Smoking Tobacco: Former Cigarettes Q uit: 08/07/2022 Passive Smoke Exposure: Past Smokeless Tobacco: Never AUDIT-C Answer Date Recorded Q1: How often [...] on file Sexual Orientation Not on file documented as of this encounter Plan of Treatment Not on file documented as of this encounter Visit Diagnoses Not on filedocumented in this encounter Care Teams Pension Agent Relationship Specialty Start Date End Date Lucina Edmondson MD [address] [place] [address] PCP - General Internal Medicine 12/20/21 Jose Parmar III, MD [address] [place] [address] Consulting Physician Rheumatology 03/29/20 documented as of this encounter
--- OUTSIDE RECORDS SUMMARY | 2025-02-17 11:35 | XMS_ITS | Encounter Summary ---
Author Organization [facility] Address [address] [place] [address] Care Team Providers Care Paint Roller Covermaker Name Role Phone Lucina Edmondson MD Primary Care Provider [phone] Encounter Details Date Type Department Care Team (Maddie li Contact Info) Description 12/13/2022 MyChart Message Enc [facility] Medical Group Multispecialty Care - [place] [address] [place] [address] [address] [place], [place] [address] [place] [address] [place] [address] [place], [place] [phone] Conjunctivitis Social History Tobacco Use Types Packs/Day Years Used Date Smoking Tobacco: Former Cigarettes Q uit: 10/07/2001 Smokeless Tobacco: Never Comments:counseled by Dr Dalila morales Alcohol Use Standard Drinks/Week Comments Yes 0 (1 standard drink = 0.6 oz pur e alcohol) PHQ-2 Answer Date Recorded PHQ-2 Score - If the patient scores above 3, please move on to questions 3-9 1 07/23/2022 Comments Yes Sex and Gender Information Value [...] suspected to have Coronavirus/COVID-19? No / Unsure 12/14/2022 3:42 PM IT INTEGRATION ARCHITECT documented as of this encounter Plan of Treatment Upcoming Encounters Date Type Department Care Team (Maddie li Contact Info) Description 04/23/2025 9:40 AM CDT Office Visit [facility] Medical Group Multispecialty Care [place] [address] [address] [place] [address] Lucina Edmondson MD [address] [address] 07/14/2025 11:20 AM CDT Office Visit [facility] Medical [facility] Pulmonology Specialty Clinic - [address] [address] Jose Covington MD [address] [address] documented as of this encounter Visit Diagnoses Not on filedocumented in this encounter Additional Health Concerns Infection Onset Date Last Indicated Resolved Time COVID-19 Rule Out 12/14/2022 12/14/2022 12/14/2022 4:21 PM IT INTEGRATION ARCHITECT Assessment Noted Time PHQ-9 Depression Total Score: 1 02/01/20 22 11:31 AM CDT documented as of this encounter Care Teams Paint Roller Covermaker Relationship Specialty Start Date End Date Lucina Edmondson MD [address] [place] [address] PCP - General INTERNAL MEDICINE 07/19/21 documented as of this encounter
--- OUTSIDE RECORDS SUMMARY | 2025-02-17 11:35 | XMS_ITS | Clinical Summary ---
Author Organization [facility] Address [address] [place] [address] Care Team Providers Care Replenisher Name Role Phone Unavailable Primary Care Provider Unavailabl e Source Comments [facility],non-owned Affiliates and Associated Physician Practices is amultiple site organization consisting of ambulatory clinics and hospital sitesin [place], [place], [place] and [place]. This disclosure is being madepursuant to the Care Everywhere program and may not contain all information available regarding this patient. Last updated 18.[facility] [employer] Allergies Active Allergy Reactions Criticality Noted Date Comments Amoxicillin Urticaria Medium 02/11/2023 Medications * Be aware that medications may not be up to date on this document. Alwaysverify current medications with the patient. adalimumab (Humira) 40 MG/0.8ML injection Inject 0.8 mL subcutaneously every 14 days Active hydroxychloroq uine (Plaquenil) 200 MG tablet Take 1 (one) tablet by mouth once daily Active Vit-Fe Fumarate-FA ( vitamin) 28-0.8 MG tablet Take 1 (one) tablet by mouth once daily Active traZODone (Desyrel) 50 MG tablet Take 1 (one) tablet by mouth at bedtime Active ARIPiprazole (Abilify) 5 MG tablet Take 1 (one) tablet by mouth once daily Active Family History Medical History Relation Name Comments Asthma Brother Relation Name Status Comments Brother Alive Father Alive Mother Alive Social History Tobacco Use Types Packs/Day Years Used Date Smoking Tobacco: Never Smokeless Tobacco: Never Tobacco Cessation:Counseling Given: Not Answered Alcohol Use Standard Drinks/Week Comments Not Currently 0 (1 standard drink = 0.6 oz pur e alcohol) [place] Depression Scale Answer Date Recorded [place] Depression Scale Total 7 02/13/2023 The thought of harming myself has occurred to me . 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 Not on file Not on file Not on file Last Filed Vital Signs Vital Sign Reading Time Taken Comments Blood Pressure 126/80 07/29/2023 11:45 AM CDT Pulse 82 07/29/2023 11:45 AM CDT Temperature - - Respiratory Rate - - Oxygen Saturation 100% 07/22/2023 12: 03 PM CDT Inhaled Oxygen Concentration - - Weight 124.5 kg (274 lb 6.4 oz) 02/13/2023 1:33 PM CDT Height 167.6 cm (5' 6 ) 02/13/2023 1:33 PM CDT Body Mass Index 44.29 02/13/2023 1:33 PM CDT Plan of Treatment Health Maintenance Due Date Last Done Comments LIPID TESTING 1985 MAMMOGRAM 1985 PAP SMEAR 1985 HIV SCREENING 12/17/1998 HEPATITIS C SCREENING 12/13/2001 DTAP/TDAP/TD VACCINES (1 - Tdap) 12/17/2002 HEPATITIS B VACCINE (1 of 3 - 19+ 3-dose series) 12/17/2002 COVID-19 VACCINE ( season) 2024 02/22/2022, 06/22/2021, 12/09/2020 DEPRESSION SCREENING 10/07/2024 INFLUENZA VACCINE (Season Ended) 2025 07/23/2022, 06/22/2021, 08/02/2020, Additional history exists ZOSTER VACCINE (1 of 2) 12/17/2033 HIB VACCINE Aged Out No longer eligi ble based on patient's age to complete this topic HPV VACCINE Aged Out No longer eligi ble based on patient's age to complete this topic MENINGOCOCCAL (Group B) VACCINE SHARED DECISION-MAKING Aged Out No longer eligible based on patient's age to complete this topic MENINGOCOCCAL GROUPS A/C/Y/W VACCINE Aged Out No longer eligible based on patient's age to complete this topic PNEUMOCOCCAL VACCINE Aged Out No long er eligible based on patient's age to complete this topic Insurance AETNA AETNA
--- OUTSIDE RECORDS SUMMARY | 2025-02-17 11:35 | XMS_ITS | Encounter Summary ---
Author Organization [facility] Address [address] [place] [address] Care Team Providers Care Bilingual Administrative Assistant Name Role Phone Lucina Edmondson MD Primary Care Provider [phone] Encounter Details Date Type Department Care Team (Latest Contact Info) Description 12/19/2022 MyChart Message Enc [facility] Medical Group Multispecialty Care - [place] [address] [place] [address] [address] [place] [address] [place] [address] [place] [address] 157 [place] [address] Doctors Note for Work Social History Tobacco Use Types Packs/Day Years [...] Coronavirus/COVID-19? No / Unsure 12/14/2022 3:42 PM ENGINE MONITOR documented as of this encounter Plan of Treatment Upcoming Encounters Date Type Department Care Team (Late st Contact Info) Description 04/23/2025 9:40 AM CDT Office Visit [facility] Medical Group Multispecialty Care [place] [address] [address] [place] [address] Lucina Edmondson MD [address] [address] 07/14/2025 11:20 AM CDT Office Visit [facility] Group Pulmonology Specialty Clinic - [address] [address] Jose Covington MD [address] [place] [address] documented as of this encounter Visit Diagnoses Not on filedocumented in this encounter Additional Health Concerns Assessment Noted Time PHQ-9 Depression Total Score: 1 02/01/20 22 11:31 AM CDT documented as of this encounter Care Teams Bilingual Administrative Assistant Relationship Specialty [place] [address] [place] [address] PCP - General INTERNAL MEDICINE 07/19/21 documented as of this encounter
--- OUTSIDE RECORDS SUMMARY | 2025-02-17 11:35 | XMS_ITS | Encounter Summary ---
Author Organization [facility] Address [address] [place] [address] Care Team Providers Care Accounts Receivable Representative Name Role Phone Lucina Edmondson MD Primary Care Provider [phone] Encounter Details Date Type Department Care Team (Latest Contact Info) Description 10/22/2023 [facility] [place] [address] Lucina Edmondson MD 118 [facility] 157 [place], [place] [address] Blood Pressure Reading Social History Tobacco Use Types Packs/Day Years [...] Description 04/23/2025 9:40 AM CDT [facility] [place] [address] Lucina Edmondson MD [facility] [address] [address] 07/14/2025 11:20 AM CDT Office Visit [facility] Medical Group Pulmonology Specialty Clinic - [address] [address] Jose Covington MD [address] [place] [address] documented as of this encounter Visit Diagnoses Not on filedocumented in this encounter Additional Health Concerns Assessment Noted Time PHQ-9 Depression Total Score: 1 10/21/19 24 10:55 AM WAITER/WAITRESS THIRD CLASS documented as of this encounter Care Teams Accounts Receivable Representative Relationship Specialty Start Date End Date Lucina Edmondson MD [address] [place] [address] PCP - General INTERNAL MEDICINE 07/19/21 documented as of this encounter
--- OUTSIDE RECORDS SUMMARY | 2025-02-17 11:35 | XMS_ITS | Encounter Summary ---
Author Organization [facility] Address [address] [place] [address] Care Team Providers Care Solar Field Service Technician Name Role Phone Lucina Edmondson MD Primary Care Provider [phone] Encounter Details Date Type Department Care Team (Late Contact Info) Description 08/09/2023 MyChart [facility] [place] [address] [place] [address] Lucina Edmondson MD [address] [place] [address] Congratulations Social History Tobacco Use Types Packs/Day Years [...] 9:40 AM CDT [facility] [address] [place] [address] Lucina Edmondson MD [facility] [address] [address] 07/14/2025 11:20 AM CDT Office Visit [facility] Medical Group Pulmonology Specialty Clinic - [address] [address] Jose Covington MD [address] [address] documented as of this encounter Visit Diagnoses Not on filedocumented in this encounter Additional Health Concerns Assessment Noted Time PHQ-9 Depression Total Score: 1 02/01/20 22 11:31 AM CDT documented as of this encounter Care Teams Solar Field Service Technician Relationship Specialty Start Date End Date Lucina Edmondson MD [address] [place] [address] PCP - General INTERNAL MEDICINE 07/19/21 documented as of this encounter
--- OUTSIDE RECORDS SUMMARY | 2025-02-17 11:35 | XMS_ITS | Encounter Summary ---
Author Organization [facility] Address [address] [place] [address] Care Team Providers Care Delicatessen Slicer Name Role Phone Lucina Edmondson MD Primary Care Provider [phone] Encounter Details Date Type Department Care Team (Late Contact Info) Description 05/14/2022 MyChart Message [facility] Mychart, [facility] Provider Patient Amendment Request Social History Tobacco [...] please move on to questions 3-9 0 05/02/2022 Comments No Sex and Gender Information Value [...] suspected to have Coronavirus/COVID-19? No / Unsure 05/02/2022 9:49 AM CDT documented as of this encounter Plan of Treatment Upcoming Encounters Date Type Department Care Team (Late Contact Info) Description 04/23/2025 9:40 AM CDT Office Visit [facility] Medical Group Multispecialty Care - [address] [place] [address] Lucina Edmondson MD [facility] [address] [place] [address] 07/14/2025 11:20 AM CDT Office Visit [facility] Medical Group Pulmonology Specialty Clinic - [address] [address] Jose Covington MD [address] [address] documented as of this encounter Visit Diagnoses Not on filedocumented in this encounter Additional Health Concerns Infection Onset Date Last Indicated Resolved Time COVID-19 Rule Out 12/14/2022 12/14/2022 12/14/2022 4:21 PM AIRCRAFT ELECTRONICS TECHNICAL OFFICER Assessment Noted Time PHQ-9 Depression Total Score: 1 02/01/20 22 11:31 AM CDT documented as of this encounter Care Teams Delicatessen Slicer Relationship Specialty Start Date End Date Lucina Edmondson MD [address] [facility] [address] [place] [address] PCP - General INTERNAL MEDICINE 07/19/21 documented as of this encounter
[2025-02-17 12:32] LABS: Beta HCG Quantitative < 2.39 mIU/ML
== END 2025-02-17 11:32 | disposition home or self-care (01) ==
LOC: ANHLAB 11:33
PROVIDERS: PCP Internal Medicine; Visit Provider Obstetrics & Gynecology
DX: Z30.430 Encounter for insertion of intrauterine contraceptive device (principal)
CPT/HCPCS: 36415; 84702